=== PATIENT | male | born 1965 | race Caucasian/White ===

== ENCOUNTER 2017-09-05 12:44 | Inpatient (IN) | payer SELFPAY ==
[2017-09-05 13:44] LABS: #Eosinphils 0.2 thou/uL (0.0-0.7); #Lymphocytes 1.2 thou/uL (1.20-3.40); #Monocytes 0.3 thou/uL (0.11-0.59); #Neutrophils 5.7 thou/uL (1.40-6.50); %Basophils 0.4 % (0.0-1.0); %Eosinophils 2.9 % (0.0-10.0); %Lymphocytes 15.7 % (21.0-51.0); %Monocytes 4.4 % (0.0-10.0); %Neutrophils 76.7 % (42.0-75.0); Hemoglobin 11.9 g/dL (14.0-18.0); Mean Corpuscular HGB CONC 32.4 g/dL (32.0-36.0); Mean Corpuscular Hemoglobin 29.3 pg (27.0-31.0); Mean Corpuscular Volume 90.4 fl (80.0-94.0); Mean Platelet Volume 8.6 fL (7.4-10.4); Platelet Count 149 thou/uL (130-400); RBC Distribution Width 13.7 % (11.5-14.5); Red Blood Cell (RBC) Count 4.08 mill/uL (4.70-6.10); White Blood Cell (WBC) Count 7.4 thou/uL (4.8-10.8)
[2017-09-05 14:18] LABS: ALT (SGPT) 25 U/L (8-55); AST (SGOT) 22 U/L (5-34); Albumin 3.3 g/dL (3.5-5.0); Alkaline Phosphatase 87 U/L (40-150); Anion Gap 10 mmol/L (10-20); BUN (Urea Nitrogen) 21 mg/dL (8.4-25.7); Bilirubin, Total 0.6 mg/dL (0.2-1.2); Calc. Creatinine Clearance 0 mL/min (70-130); Carbon Dioxide 27 mmol/L (22-29); Chloride 106 mmol/L (98-107); Estimated GFR-MDRD 60; Globulin 2.5 g/dL (2.4-3.5); Glucose 172 mg/dL (70-105); Potassium 4.8 mmol/L (3.5-5.1); Protein, Total 5.8 g/dL (6.0-8.3); Sodium 138 mmol/L (136-145)
[2017-09-05 14:57] LABS: Acetaminophen Less than 6.0 mcg/mL (10.0-30.0); Alcohol Less than 10 mg/dL (Less than 10); Salicylate Less than 8.0 mg/dL (15.0-30.0)
[2017-09-05 17:00] LABS: INR-International Normal Ratio 1.2; PTT 29.4 SEC (22.9-36.1)
[2017-09-05] MEDS ORDERED: Ondansetron HCl/PF 4 MG/2 ML Vial ONE (17:57)
[2017-09-05] MEDS ORDERED: Pantoprazole 40 MG VIAL ONE (17:57)
[2017-09-05] MEDS ORDERED: Ondansetron HCl/PF 4 MG/2 ML Vial IVP PRN (20:32)
[2017-09-05] MEDS ORDERED: Acetaminophen 325 MG TAB PO PRN (20:32)
[2017-09-05 21:07] LABS: CKMB 1.7 ng/mL (0-6.6)
[2017-09-05 21:09] LABS: Hemoglobin 11.1 g/dL (14.0-18.0); Platelet Count 133 thou/uL (130-400)
[2017-09-05 21:31] LABS: Cardiac Risk 3.8 (Less than 4.5)
[2017-09-05 22:46] VITALS: BMI 39.9
[2017-09-05] MEDS: Sodium Chloride 0.9% 1,000 ML IV SCH (23:02)
[2017-09-05 23:24] LABS: HIV (1/2) Antibody/Antigen Non-Reactive (NonReactive); HIV 1/2 INDEX 0.14 S/CO (<1.00); Hep B Surf AB Non-Reactive (NonReactive); Hep C IgG Ab Non-Reactive (NonReactive); Hep C Index 0.31 S/CO (0-0.79)
[2017-09-05 23:51] LABS: CKMB 1.7 ng/mL (0-6.6); Troponin I 0.026 ng/mL (< 0.028)
[2017-09-06 02:33] LABS: #Eosinphils 0.1 thou/uL (0.0-0.7); #Lymphocytes 1.8 thou/uL (1.20-3.40); #Monocytes 0.5 thou/uL (0.11-0.59); #Neutrophils 4.5 thou/uL (1.40-6.50); %Basophils 0.7 % (0.0-1.0); %Eosinophils 1.9 % (0.0-10.0); %Lymphocytes 25.6 % (21.0-51.0); %Monocytes 6.5 % (0.0-10.0); %Neutrophils 65.2 % (42.0-75.0); Hemoglobin 10.1 g/dL (14.0-18.0); Mean Corpuscular HGB CONC 33.2 g/dL (32.0-36.0); Mean Corpuscular Hemoglobin 30.1 pg (27.0-31.0); Mean Corpuscular Volume 90.7 fl (80.0-94.0); Platelet Count 123 thou/uL (130-400); RBC Distribution Width 13.9 % (11.5-14.5); Red Blood Cell (RBC) Count 3.35 mill/uL (4.70-6.10); White Blood Cell (WBC) Count 6.9 thou/uL (4.8-10.8)
--- NOTE | 2017-09-06 02:40 | HP-2 ---
CODE STATUS: FULL. PRIMARY CARE PHYSICIAN: City call. ATTENDING PHYSICIAN: Vamshi Anaya MD RESIDENT: Omari Rose MD HISTORIAN: Patient and family DATE AND TIME OF SERVICE: 1930 hours on 09/05/2017. CHIEF COMPLAINT: Vomiting blood. HISTORY OF PRESENT ILLNESS: Handy Meredith is a 52-year-old male with past medical history of hype rtension, who presents with a 1-day history of hematemesis, started vomiting bright red blood today. First, he threw up clots and then he had several episodes of bright red bloody vomit. The patient h as also had melanotic stools associated with his vomiting. He denies any abdominal pain, chest pain, nausea, vomiting, diarrhea, fever. He has had some dizziness over the last few hours. The patient is from [place] and has been visiting family. He only takes 2 medications, Losartan and amlodipine, b ut has not taken them since traveling to the , as he forgot his medications at home in [place]. The patient has no history of vomiting blood and his symptoms improved after receiving Zofran in the ER. He also received Protonix in the ER. PAST MEDICAL HISTORY: Hypertension. PAST SURGICAL HISTORY: None. ALLERGIES: No known drug allergies. MEDICATIONS: 1. Losartan 50 mg p.o. daily. 2. Amlodipine 5 mg p.o. daily. FAMILY HISTORY: Unremarkable. SOCIAL HISTORY: The patient states that he smokes 2 cigarettes per day and that he will drink 6 beer s about every 2 weeks. Denies any drug use. He is and lives with his spouse. REVIEW OF SYSTEMS: Twelve-point review of systems including general, eyes, ENT, respiratory, CV, GI, , skin, musculoskeletal, neuro, and psych were reviewed and were unremarkable unless otherwise sta oscar in the HPI. PHYSICAL EXAMINATION: VITAL SIGNS: Blood pressure 122/72, pulse 62, respiratory rate 17, temperature 98.2, pulse ox 96% on room air, current weight is 90.72 kg. GENERAL: Alert and oriented x3, in no acute distress. Well developed, well nourished, and appropria tely interactive. EYES: Pupils equal, round, and reactive to light and accommodation. Extraocular muscles intact. Co njunctivae within normal limits. ENT: Tympanic membranes pearly hodges without erythema or bulging. Nasal mucosa and oropharynx within normal limits. NECK: Supple without lymphadenopathy or thyromegaly. CARDIOVASCULAR: Regular rate and rhythm. No murmurs or gallops. RESPIRATORY: Normal effort. No retractions. LUNGS: Clear to auscultation bilaterally. SKIN: Warm and dry without cyanosis or lesions. ABDOMEN: Soft and nontender. Bowel sounds x4. No masses or distention. There is a small ventral h ernia present on abdomen. EXTREMITIES: No clubbing, cyanosis, or edema. MUSCULOSKELETAL: Structure and tone within normal limits. Full range of motion. NEUROLOGIC: No focal deficits. Sensation within normal limits. PSYCHIATRIC: Appropriate. LABORATORY DATA: White blood cell count 7.4, hemoglobin 11.9, hematocrit 36.9, MCV 98.4, platelets 1 49. Sodium 138, potassium 4.8, chloride 106, bicarbonate 27, BUN 21, creatinine 1.27, glucose 172, c alcium 9, total protein 5.8, albumin 3.3, AST 22, ALT 25, alkaline phosphatase 87, total bilirubin 0. 6. Fecal occult positive. Blood type O positive. Ammonia 62. PT 15, PTT 29.4, INR 1.2. UDS, less than 6 ammonia, less than 10 alcohol, negative for aspirin. ASSESSMENT AND PLAN: Handy Meredith is a 52-year-old man with past medical history of hypertension . He presents with 1-day history of bright red bloody vomiting. 1. Acute upper gastrointestinal bleed. Admit to tele. Continue b.i.d. IV Protonix, every 4 hour H&H , maintenance fluids at 130 mL an hour. GI was consulted in the ER, saw the patient, and scheduled s cope tomorrow (Dr. Mckeon). Transfuse packed red blood cells p.r.n. Clear liquid diet at this time. N.p.o. at midnight. We will check right upper quadrant ultrasound, HIV, fasting lipid panel, and he patitis panel. 2. Hypertension. Hold home meds at this time as the patient was hypotensive in the ER, p.r.n. IV la betalol for blood pressures greater than 180 systolic. Consider restarting home medications after pr ocedure tomorrow. 3. Frequent premature ventricular contractions. Trend cardiac enzymes. Likely secondary to acute u pper gastrointestinal bleed. 4. Hyperglycemia. Check hemoglobin A1c. 5. Deep venous thrombosis prophylaxis, sequential compression devices. 6. Acute kidney injury versus chronic kidney disease. Check urine sodium and urine creatinine. 7. Code status: FULL CODE. 8. Diet: Clear liquid, then n.p.o tonight. DISPOSITION: Length of hospital stay, 2 days. Symptomatic medications will be provided. History and physical exam as well as management were discussed with Dr. Anaya.
[2017-09-06 03:01] LABS: CKMB 1.6 ng/mL (0-6.6); Troponin I 0.023 ng/mL (< 0.028)
--- NOTE | 2017-09-06 03:20 | CON ---
DATE OF CONSULTATION: 09/05/2017 REASON FOR CONSULTATION: Hematemesis. CONSULTING PHYSICIAN: Jossie Moffett PA-C HISTORY OF PRESENT ILLNESS: The patient is a 52-year-old gentleman with past medical history of hypertension, presenting with complaints of hematemesis and melena. He states that he was in his usual state of health until approximately 24 hours ago when he has three discrete episodes of vomiting, gross blood. Initially manifested as "vomiting clots" per patient and patient's , it was closely followed by vomiting of jason blood. Associated symptoms included increased headache only. He denies any fever, chills, abdominal pain, odynophagia, dysphagia, constipation, or diarrhea. Of note, he had been taking aspirin daily (unknown amount) along with p.r.n. use of ibuprofen for pain with increased dose within the last few weeks. OUTPATIENT MEDICATIONS: Amlodipine, losartan. INPATIENT MEDICATIONS: Reviewed. PAST MEDICAL HISTORY: As above. PAST SURGICAL HISTORY: Denies. FAMILY HISTORY: Hypertension, coronary artery disease, no GI malignancies. SOCIAL HISTORY: Smokes 3-4 cigarettes daily. He also claims to drink 6-7 beers every 2 weeks. Denies any illicit drug use. ALLERGIES: Denies. REVIEW OF SYSTEMS: A 12-category review of systems was obtained with all responses negative except for the pertinent positives as listed in the HPI. PHYSICAL EXAMINATION: VITAL SIGNS: Temperature 98.1, pulse 75, blood pressure 118/78, respiratory rate 18, satting 99% on room air. GENERAL: Patient in no acute distress, alert and oriented x4, Mauritian speaking only. HEENT: Pupils are equal, round, and reactive to light. Extraocular movements are intact. NECK: Supple, with no discernible JVD. CARDIOVASCULAR: Regular rate and rhythm with no discernible murmurs, gallops, or rubs. RESPIRATORY: Clear to auscultation bilaterally with no discernible wheezes or rales. ABDOMEN: Normoactive bowel sounds, soft, nontender, nondistended. No hepatosplenomegaly noted. EXTREMITIES: No cyanosis, clubbing, or edema. SKIN: No jaundice, caput medusae, or spider angiomata seen. LABORATORY DATA: CBC with white blood cell count of 7.4, hemoglobin 11.1, hematocrit 33.8, platelets 133. Chemistry with a sodium of 138, potassium 4.8, chloride 106, carbon dioxide 27, BUN 21, creatinine 1.27, glucose 172, AST 22, ALT 25, alkaline phosphatase 87, total bilirubin 0.6. FIB-4 score 1.72, APRI score 0.4. IMAGING STUDIES: No imaging studies available for review. ASSESSMENT AND PLAN: The patient is a 52-year-old male with a past medical history of hypertension, presenting with hematemesis and melena, concerning for upper gastrointestinal bleed. Upper gastrointestinal bleed The patient is presenting with acute onset of gross blood hematemesis that have occurred within the last 24 hours. He does have a history of significant nonsteroidal anti-inflammatory drug use, which could potentially contribute to the current clinical situation, but given his alcohol history, he is at risk for portal hypertension and variceal formation (albeit unlikely) with a current FIB-4 score of 1.72 (indeterminate) and APRI score of 0.4(indeterminate) showing possible fibrosis (primarily due to his low platelet count). Otherwise , does not exhibit any evidence of alcoholic hepatitis or physical stigmata of cirrhosis at this time. At this time, differential is broad and could include esophagitis, gastritis, varices (less likely), arteriovenous malformation/ Dieulafoy lesion, peptic ulcer disease, and/or possible malignancy (much less likely). RECOMMENDATIONS: 1. We would continue to trend H and H and transfuse as necessary to maintain an H and H of /. 2. We would continue patient on either PPI drip or pantoprazole 40 mg b.i.d. 3. We would make patient n.p.o. at midnight for endoscopic evaluation on 2016 (EGD). 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 MTDD
[2017-09-06] MEDS: Sodium Chloride 0.9% 1,000 ML IV SCH ×2 (06:15→12:25)
[2017-09-06 06:38] LABS: Creatinine, Urine 77.74 mg/dL (63-166)
--- NOTE | 2017-09-06 06:43 | HP ---
DATE OF ADMISSION: 09/05/2017 CHIEF COMPLAINT: Vomiting. HISTORY OF PRESENT ILLNESS: This is a 52-year-old male with past history of hypertension who present s with multiple episodes of bloody vomitus this morning. He also has been having some dark stools to day as well. In the ED, he was noted to be borderline hypertensive responded well to fluids and subs equently GI was consulted and they recommended endoscopy in the morning and we were consulted for adm ission. Currently, has no complaints. Denies fatigue, chest pain, shortness of breath, nausea, vomi ting, diarrhea, constipation, abdominal pain, chest pain, shortness of breath, fever, chills, and all other systems are reviewed and otherwise negative. PAST MEDICAL HISTORY: Significant for hypertension. MEDICATIONS: Losartan and hydrochlorothiazide. PAST SURGICAL HISTORY: Noncontributory. FAMILY HISTORY: Positive for hypertension and coronary artery disease. SOCIAL HISTORY: He smokes approximately 3-4 cigarettes a day. He drinks alcohol about a 6-pack ever y 2 weeks. Denies drug use. ALLERGIES: No known drug allergies. PHYSICAL EXAMINATION: VITAL SIGNS: Reviewed and currently stable. GENERAL: No acute distress, resting comfortably, talking with family. HEENT: Eyes: Without icterus or injection. Pupils are equal, round, reactive to light. Pinna norm al. Nares patent. Moist mucous membranes with no vomitus or posterior pharyngeal erythema. CARDIOVASCULAR: Regular rate and rhythm without murmur, gallops, or rubs. LUNGS: Clear to auscultation bilaterally without wheezes, rales, or rhonchi. GASTROINTESTINAL: Bowel sounds positive. Obese, nontender to palpation. No palpable organomegaly. GENITOURINARY: Deferred. MUSCULOSKELETAL: Without obvious deformity contracture. No effusion. Muscles nontender to palpatio n. SKIN: Without stigmata of liver disease at this point. Nails normal. Warm and dry without rash. NEUROLOGIC: Cranial nerves II-XII intact and symmetric. Motor 5/5 in upper and lower extremities. Sensation intact to light touch in the upper and lower extremities. PSYCHIATRIC: Alert and oriented x3. Normal mood and affect for current medical condition. LABORATORY DATA: Include hemoglobin of 11.9 with normal MCV, no leukocytosis. Platelets are 149. C oags, only abnormal is PT which is 15.0, INR is normal at 1.2. Chemistry include elevated glucose, b ut otherwise creatinine is 1.27, BUN is 21 with estimated GFR of 60. Salicylates, acetaminophen, and plasma alcohol are negative. There is no imaging. Stool occult blood is negative. Blood bank is O positive without antibodies. ASSESSMENT AND PLAN: A 52-year-old male with: 1. Likely upper gastrointestinal bleed. GI has been consulted. We will perform endoscopy tomorrow. They recommended b.i.d. IV PPI. We will go ahead and proceed with pantoprazole for that. They do not want octreotide, so we will hold off to make sure he has good IV access for maintenance fluids. We will trend hemoglobin q.4 hours every night and transfuse p.r.n. 2. Anemia, see above. We will hold off on iron studies. 3. Nausea and vomiting, Zofran p.r.n. if necessary. 4. Morbid obesity. Counseled diet and exercise. 5. Tobacco abuse. We will recommend tobacco cessation. 6. Alcohol use. Unsure if he has alcohol use disorder or any medical complications from this. In l ight of recent hematemesis, we will proceed with a hep panel as well as an A1c and a right upper quad rant ultrasound to evaluate his liver. 7. Deep venous thrombosis prophylaxis with sequential compression device. 8. Gastrointestinal prophylaxis as above.
[2017-09-06 07:16] LABS: Hemoglobin 10.2 g/dL (14.0-18.0); Platelet Count 132 thou/uL (130-400)
[2017-09-06] MEDS: Pantoprazole 40 MG VIAL IVP SCH ×2 (08:28→21:01)
--- NOTE | 2017-09-06 08:54 | ULT ---
GALLBLADDER ULTRASOUND: HISTORY: GI bleed. FINDINGS: The liver demonstrates increased echogenicity, consistent with fatty infiltration. No focal mass or intrahepatic ductal dilatation is seen. No shadowing gallstones are seen. There is thickening of th e wall of the gallbladder with pericholecystic fluid. The common duct measures 4 mm in diameter. Th e tail of the pancreas is obscured by bowel gas. The remainder of the pancreas and the right kidney are unremarkable. There is a small amount of free fluid adjacent to the liver. IMPRESSION: 1. Fatty liver. 2. Thickened gallbladder wall with pericholecystic fluid. If there is high clinical suspicion for an acute cholecystitis, further evaluation with HIDA scan shaina uld be performed. POS: YOSHI
--- NOTE | 2017-09-06 09:06 | PDOC.FM ---
- Subjective Subjective: Pt seen at bedside in NAD. Family at bedside. TIFFANIE overnight but pt does endorse melenotic BMs. Pt denies CP, SOB, abd pain, or any further episodes of vomiting. Pt NPO ahead of EGD. - Objective MAR Reviewed: Yes Vital Signs & Weight: Vital Signs (12 hours) Temp Pulse Resp BP BP Pulse Ox 09/06/17 08:00 97.8 F 64 14 118/68 99 09/06/17 04:23 75 20 131/72 09/06/17 04:00 97.8 F 72 16 114/71 114/71 97 09/06/17 00:00 98.7 F 76 23 H 119/73 97 09/05/17 23:02 20 Weight Weight 102.33 kg I&O: 09/05/17 09/06/17 09/07/17 06:59 06:59 06:59 Intake Total 1551 Output Total 200 Balance 1351 Result Diagrams: 09/06/17 06:51 09/05/17 13:36 <Macario Gross - Last Filed: 09/06/17 09:05> - Objective Vital Signs & Weight: Vital Signs (12 hours) Temp Pulse Resp BP BP Pulse Ox 09/06/17 08:00 97.8 F 64 14 118/68 99 09/06/17 04:23 75 20 131/72 09/06/17 04:00 97.8 F 72 16 114/71 114/71 97 09/06/17 00:00 98.7 F 76 23 H 119/73 97 09/05/17 23:02 20 Weight Weight 102.33 kg I&O: 09/05/17 09/06/17 09/07/17 06:59 06:59 06:59 Intake Total 1551 Output Total 200 Balance 1351 Result Diagrams: 09/06/17 06:51 09/05/17 13:36 <Kayden Rascon - Last Filed: 09/06/17 11:44> Phys Exam - Physical Examination Constitutional: NAD HEENT: PERRLA, sclera anicteric Respiratory: no wheezing, clear to auscultation bilateral Cardiovascular: RRR, no significant murmur Gastrointestinal: soft, non-tender, positive bowel sounds Musculoskeletal: no edema, pulses present Neurological: moves all 4 limbs Psychiatric: normal affect, A&O x 3 Skin: cap refill <2 seconds <Macario Gross - Last Filed: 09/06/17 09:05> Dx/Plan (1) Hematemesis Code(s): K92.0 - HEMATEMESIS Status: Acute QualifierTitle: Nausea presence: with nausea Qualified Code(s): K92.0 - Hematemesis Plan: -pt presented with 1 day history of hematemesis endorsing vomiting blood clots -pt found to have symptomatic anemia with c/o dizziness and hgb 11 on admission -FOBT+ -pt notes he has been taking ASA daily, unknown dose along with PRN ibuprofen use -GI consulted from ED, recs greatly appreciated -EtOH history slightly inconsistent but pt notes 6 beers every 2 weeks -upper GI bleed likely 2/2 to NSAID use -RUQ US shows fatty liver. no evidence of cirrhosis. -plan per GI for EGD this AM (2) Fatty liver Code(s): K76.0 - FATTY (CHANGE OF) LIVER, NOT ELSEWHERE CLASSIFIED Status: Acute Plan: -RUQ US shows fatty liver -agency legal counsel EtOH cessation (3) Essential hypertension Code(s): I10 - ESSENTIAL (PRIMARY) HYPERTENSION Status: Acute Plan: -pt on home amlodipine and losartan -held as pt is NPO with BP well controlled -continue to monitor (4) Hyperglycemia Code(s): R73.9 - HYPERGLYCEMIA, UNSPECIFIED Status: Acute Plan: -hyperglycemia on admission with glucose 172 -A1c of 6.0 -pt likely has glucose intolerance, agency legal counsel dietary and lifestyle changes -after EGD, will start pt on metformin <Macario Gross - Last Filed: 09/06/17 09:05> Attending Addendum - Attending Addendum I personally evaluated the patient and discussed the management with Dr. [] I agree with the History, Examination, Assessment and Plan documented above with any addition or exceptions noted below. <Kayden Rascon - Last Filed: 09/06/17 11:44>
[2017-09-06] MEDS ORDERED: Lidocaine 1% PF 5 ML VIAL ONE (13:31)
[2017-09-06] MEDS ORDERED: PROPOFOL 200 MG/20 ML VIAL ONE (13:31)
[2017-09-06] MEDS ORDERED: Ondansetron HCl/PF 4 MG/2 ML Vial IVP PRN (14:35)
[2017-09-06] MEDS ORDERED: Meperidine HCl/PF 25 MG/ML VIAL SLOW IVP PRN (14:35)
[2017-09-06] MEDS ORDERED: HYDROmorphone 2 MG/ML VIAL SLOW IVP PRN (14:35)
[2017-09-06] MEDS ORDERED: Promethazine HCl 25 MG/ML VIAL SLOW IVP PRN (14:35)
[2017-09-06] MEDS ORDERED: Morphine Sulfate 2 MG/ML SYRINGE SLOW IVP PRN (14:35)
[2017-09-06] MEDS ORDERED: Octreotide Acetate 50 MCG/ML AMP SLOW IVP SCH (15:15)
[2017-09-06] MEDS: Octreotide Acetate 1,250 MCG in Sodium Chloride 0.9% 250 ML 250 ML IVPB SCH (15:53)
[2017-09-06] MEDS: Dextrose 5 % And 0.9 % NaCl 1,000 ML IV SCH (16:01)
--- NOTE | 2017-09-06 22:57 | OP ---
DATE OF PROCEDURE: 09/06/2017 PROCEDURES: EGD with banding of varices x7. PREPROCEDURE DIAGNOSIS: Upper gastrointestinal hemorrhage. POSTPROCEDURE DIAGNOSES: 1. Mild atrophic gastropathy with no active bleeding. 2. No gastric varices. 3. Normal duodenum third portion. 4. 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 This is likely the source of bleeding; however, in light of the red . RECOMMENDATIONS: 1. IV octreotide drip. 2. Protonix IV q.12 hours. 3. The patient should have repeat banding in 3 weeks. 4. Alcohol cessation. 5. Cirrhosis workup. ANESTHESIA: TIVA. PROCEDURE IN DETAIL: After the patient was informed of the risks, benefits, possible complications o f endoscopy including perforation, reactions to medication and aspiration, informed consent was obtai zackary. The patient was brought to endoscopy suite where he was sedated in gradual fashion. Once he wa s comfortable, a bite block was placed in incisural orifice. The endoscope was advanced through the esophagus, stomach and second and third portion of duodenum. The esophagus was notable for 3 columns of grade 4 varices with red ar signs. There was no clot or active bleeding seen. The endoscope w as advanced into the stomach carefully, the stomach was normal on retroflexed views. There is some a trophic gastritis of the body of the stomach. There was no evidence of gastric varices. There is no . The pylorus was normal. Duodenum was normal to the third portion. The scope was then remov ed. The 7 band ligator kit was fixed to the endoscope was reintroduced the esophagus carefully down the distal esophagus where 7 bands were applied in the varices between 40 and 35 cm with good ablatio n of varices.
[2017-09-07] MEDS: Dextrose 5 % And 0.9 % NaCl 1,000 ML IV SCH ×2 (04:21→15:47)
[2017-09-07 05:15] LABS: #Eosinphils 0.2 thou/uL (0.0-0.7); #Monocytes 0.3 thou/uL (0.11-0.59); %Basophils 0.5 % (0.0-1.0); %Eosinophils 3.8 % (0.0-10.0); %Lymphocytes 22.2 % (21.0-51.0); %Monocytes 7.3 % (0.0-10.0); %Neutrophils 66.1 % (42.0-75.0); Mean Corpuscular HGB CONC 32.5 g/dL (32.0-36.0); Mean Corpuscular Hemoglobin 29.8 pg (27.0-31.0); Mean Corpuscular Volume 91.7 fl (80.0-94.0); Mean Platelet Volume 8.3 fL (7.4-10.4); Platelet Count 124 thou/uL (130-400); Red Blood Cell (RBC) Count 3.37 mill/uL (4.70-6.10); White Blood Cell (WBC) Count 4.5 thou/uL (4.8-10.8)
[2017-09-07 05:52] LABS: ALT (SGPT) 47 U/L (8-55); AST (SGOT) 40 U/L (5-34); Albumin 3.4 g/dL (3.5-5.0); Alkaline Phosphatase 60 U/L (40-150); Anion Gap 10 mmol/L (10-20); BUN (Urea Nitrogen) 25 mg/dL (8.4-25.7); Bilirubin, Total 0.8 mg/dL (0.2-1.2); Calc. Creatinine Clearance 97 mL/min (70-130); Calcium 9.2 mg/dL (7.8-10.44); Carbon Dioxide 27 mmol/L (22-29); Chloride 108 mmol/L (98-107); Estimated GFR-MDRD 59; Globulin 2.6 g/dL (2.4-3.5); Glucose 152 mg/dL (70-105); Phosphorus 3.8 mg/dL (2.3-4.7); Sodium 141 mmol/L (136-145)
[2017-09-07] MEDS: Octreotide Acetate 1,250 MCG in Sodium Chloride 0.9% 250 ML 250 ML IVPB SCH (08:31)
[2017-09-07] MEDS: Pantoprazole 40 MG VIAL IVP SCH ×2 (08:31→21:14)
[2017-09-07] MEDS: Amlodipine 5 MG TAB PO SCH (09:18)
--- NOTE | 2017-09-07 09:23 | PDOC.FM ---
- Subjective Subjective: Pt seen at bedside in NAD with family at bedside. TIFFANIE overnight. Pt still endorses melena but denies OSBORNE, CP, SOB, NVD, or abd pain. Pt tolerating diet. - Objective MAR Reviewed: Yes Vital Signs & Weight: Vital Signs (12 hours) Temp Pulse Resp BP BP Pulse Ox 09/07/17 09:18 68 126/70 09/07/17 07:25 96.4 F L 68 18 126/70 97 09/07/17 04:18 135/82 09/07/17 04:00 97.6 F 65 15 135/82 100 Weight Weight 101.559 kg I&O: 09/06/17 09/07/17 09/08/17 06:59 06:59 06:59 Intake Total 1551 1572 Output Total 200 2600 Balance 1351 -1028 Result Diagrams: 09/07/17 04:32 09/07/17 04:32 <Macario Gross - Last Filed: 09/07/17 10:37> - Objective Vital Signs & Weight: Vital Signs (12 hours) Temp Pulse Resp BP BP Pulse Ox 09/07/17 11:38 98.8 F 64 20 139/79 96 09/07/17 11:22 96 09/07/17 09:18 68 126/70 09/07/17 08:00 126/70 09/07/17 07:25 96.4 F L 68 18 126/70 97 09/07/17 04:18 135/82 09/07/17 04:00 97.6 F 65 15 135/82 100 Weight Weight 101.559 kg I&O: 09/06/17 09/07/17 09/08/17 06:59 06:59 06:59 Intake Total 1551 1572 Output Total 200 2600 Balance 1351 -1028 Result Diagrams: 09/07/17 04:32 09/07/17 04:32 <Kayden Rascon - Last Filed: 09/07/17 15:12> Phys Exam - Physical Examination Constitutional: NAD HEENT: sclera anicteric Respiratory: no wheezing, no rales, clear to auscultation bilateral Cardiovascular: RRR, no significant murmur Gastrointestinal: soft, non-tender, positive bowel sounds Musculoskeletal: pulses present Neurological: moves all 4 limbs Psychiatric: normal affect, A&O x 3 Skin: cap refill <2 seconds <Macario Gross - Last Filed: 09/07/17 10:37> Dx/Plan (1) Hematemesis Code(s): K92.0 - HEMATEMESIS Status: Acute QualifierTitle: Nausea presence: with nausea Qualified Code(s): K92.0 - Hematemesis Plan: -pt presented with 1 day history of hematemesis endorsing vomiting blood clots -pt found to have symptomatic anemia with c/o dizziness and hgb 11 on admission -FOBT+ -pt notes he has been taking ASA daily, unknown dose along with PRN ibuprofen use -GI consulted from ED, recs greatly appreciated -EtOH history slightly inconsistent but pt notes 6 beers every 2 weeks -RUQ US shows fatty liver. no evidence of cirrhosis. -pt had EGD on 09/06 which showed 7 lower esophageal varices that were banded -will add CMV onto hepatitis panel and consider liver biopsy in outpatient setting -pt placed on octreotide gtt (2) Fatty liver Code(s): K76.0 - FATTY (CHANGE OF) LIVER, NOT ELSEWHERE CLASSIFIED Status: Acute Plan: -RUQ US shows fatty liver -debt counselor EtOH cessation -initial hepatitis panel negative. will add CMV. -consider outpatient biopsy (3) Essential hypertension Code(s): I10 - ESSENTIAL (PRIMARY) HYPERTENSION Status: Acute Plan: -pt on home amlodipine and losartan -amlodipine restarted -continue to monitor (4) Hyperglycemia Code(s): R73.9 - HYPERGLYCEMIA, UNSPECIFIED Status: Acute Plan: -hyperglycemia on admission with glucose 172 -A1c of 6.0 -pt likely has glucose intolerance, debt counselor dietary and lifestyle changes -will start pt on metformin - Plan Plan: dispo: Pt stable and doing well. Tolerated EGD and banding yesterday. GI recommendations greatly appreciated. Continue octreotide and protonix. Will continue to monitor. <Macario Gross - Last Filed: 09/07/17 10:37> Attending Addendum - Attending Addendum I personally evaluated the patient and discussed the management with Dr. Gross. I agree with the History, Examination, Assessment and Plan documented above with any addition or exceptions noted below. W/O c/o's except expected melena. Vitals stable. On octreotide drip. Discussed results with pt. and family and stressed complete ETOH abstinence from now on and need for f/u as OP to monitor progression and continue investigation as to cause if not determined fully while here. Pt. 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 <Kayden Rascon - Last Filed: 09/07/17 15:12>
--- NOTE | 2017-09-07 16:13 | PRG ---
DATE OF SERVICE: 09/07/2017 SUBJECTIVE: The patient is doing well overnight with no further episodes of hematemesis or melena. Currently, he denies any nausea, vomiting, fever, chills , shortness of breath, abdominal pain, hematemesis, melena, hematochezia, dysphagia or odynophagia. INPATIENT MEDICATIONS: Reviewed. PHYSICAL EXAMINATION: VITAL SIGNS: Temperature 98.8, pulse 64, blood pressure 139/79, respiratory rate 20, and satting 96% on room air. GENERAL: No acute distress. Alert and oriented x4, Liberian speaking only. CARDIOVASCULAR: Regular rate and rhythm with no discernible murmurs, gallops or rubs. RESPIRATORY: Clear to auscultation bilaterally with no wheezes or rales. ABDOMEN: Normoactive bowel sounds, soft, nontender, nondistended. EXTREMITIES: No cyanosis, clubbing or edema. LABORATORY DATA: CBC with white blood cell count of 4.5, hemoglobin 10, hematocrit 30.9, and platelets 124. Sodium 141, potassium 4.0, chloride 108, carbon dioxide 27, BUN 25, creatinine 1.28, glucose 152, AST 40, ALT 47, alkaline phosphatase 60, total bilirubin 0.8. IMAGING STUDIES: EGD performed on 09/06/2017 showing 3 columns of grade 4 varices in the distal esophagus with red ar sign indicative of recent bleeding. He underwent band ligation x7. There was no evidence of gastric varices on examination. Mild atrophic gastropathy was also noted within the body and antrum of the stomach. ASSESSMENT: Patient is a 52-year-old male with past medical history of hypertension presenting with hematemesis and melena, likely due to esophageal varix bleed. Variceal bleeding The patient presented with acute onset of gross blood hematemesis that occurred for approximately 25 hours prior to admission. This has never happened to him before and had been taking NSAIDs and increased alcohol abuse prior to admission , which could have potentially contributed to his current clinical status. Subsequently, he underwent EGD on 09/06/2017 with finding of large varices in the distal esophagus indicative of portal hypertension. Recent right upper quadrant ultrasound showed only hepatic steatosis with no nodular morphology consistent with cirrhosis. At this time, with the presence of esophageal varices, it is indicative of portal hypertension with the most likely reason being chronic alcohol abuse and resultant cirrhosis. Currently with decompensated disease with a MELD score of 11. The patient will need further workup of other underlying liver disease as a cause of his probable cirrhosis prior to discharge. He will also need close followup as an outpatient for further evaluation and maintenance of chronic liver disease. RECOMMENDATIONS: 1. Would proceed with full liver workup to include serologies of THOMAS, AMA, ASMA , LKM, ceruloplasmin, alpha 1 antitrypsin, iron profile with ferritin, and immunoglobulins looking for other underlying liver disorder. 2. We will need to repeat EGD in 3-4 weeks for reevaluation of esophageal varices and possible repeat band ligation. 3. Patient will need follow up in the GI clinic within 2 weeks of discharge for further maintenance of chronic liver disease. 4. Would obtain daily INR and perform neuro checks for possible encephalopathy and worsening liver disease. 5. Would continue octreotide infusion for 72 hours from initial administration. MTDD
[2017-09-07] MEDS: Losartan 25 MG TAB PO SCH (21:14)
[2017-09-08] MEDS: Octreotide Acetate 1,250 MCG in Sodium Chloride 0.9% 250 ML 250 ML IVPB SCH (02:56)
[2017-09-08] MEDS: Dextrose 5 % And 0.9 % NaCl 1,000 ML IV SCH ×2 (03:20→18:10)
[2017-09-08 05:28] LABS: INR-International Normal Ratio 1.2; Prothrombin Time 15.5 SEC (12.0-14.7)
[2017-09-08 05:34] LABS: Hemoglobin 9.8 g/dL (14.0-18.0); Platelet Count 118 thou/uL (130-400)
--- NOTE | 2017-09-08 07:23 | PDOC.FM ---
- Subjective Subjective: Pt seen at bedside in NAD. TIFFANIE overnight. Pt still endorses melena but denies OSBORNE , CP, SOB, NVD, or abd pain. Pt tolerating diet. - Objective MAR Reviewed: Yes Vital Signs & Weight: Vital Signs (12 hours) Temp Pulse Resp BP BP BP Pulse Ox 09/08/17 03:15 98.0 F 57 L 14 113/66 113/66 98 09/08/17 00:25 98.3 F 68 18 115/69 115/69 98 09/07/17 20:00 157/84 H 09/07/17 19:30 99.2 F 65 18 157/84 H 96 Weight Weight 101.559 kg I&O: 09/07/17 09/08/17 09/09/17 06:59 06:59 06:59 Intake Total 1572 2668 Output Total 2600 700 Balance -1028 1967 Result Diagrams: 09/08/17 04:37 09/07/17 04:32 <Macario Gross - Last Filed: 09/08/17 07:54> - Objective Vital Signs & Weight: Vital Signs (12 hours) Temp Pulse Resp BP BP BP Pulse Ox 09/08/17 11:00 97.3 F L 60 20 124/74 97 09/08/17 08:25 67 127/79 09/08/17 08:20 97.9 F 16 96 09/08/17 08:07 97.9 F 67 16 09/08/17 03:15 98.0 F 57 L 14 113/66 113/66 98 Weight Weight 101.559 kg I&O: 09/07/17 09/08/17 09/09/17 06:59 06:59 06:59 Intake Total 1572 2668 330 Output Total 2600 700 Balance -1028 1967 330 Result Diagrams: 09/08/17 04:37 09/07/17 04:32 <Romeo Trammell - Last Filed: 09/08/17 15:09> Phys Exam - Physical Examination Constitutional: NAD HEENT: sclera anicteric Respiratory: no wheezing, no rales, clear to auscultation bilateral Cardiovascular: RRR, no significant murmur Gastrointestinal: soft, non-tender, positive bowel sounds Musculoskeletal: pulses present Neurological: moves all 4 limbs Psychiatric: normal affect, A&O x 3 Skin: cap refill <2 seconds <Macario Gross - Last Filed: 09/08/17 07:54> Dx/Plan (1) Hematemesis Code(s): K92.0 - HEMATEMESIS Status: Acute QualifierTitle: Nausea presence: with nausea Qualified Code(s): K92.0 - Hematemesis Plan: -pt presented with 1 day history of hematemesis endorsing vomiting blood clots -pt found to have symptomatic anemia with c/o dizziness and hgb 11 on admission -FOBT+ -pt notes he has been taking ASA daily, unknown dose along with PRN ibuprofen use -GI consulted from ED, recs greatly appreciated -EtOH history slightly inconsistent but pt notes 6 beers every 2 weeks -RUQ US shows fatty liver. no evidence of cirrhosis. -pt had EGD on 09/06 which showed 7 lower esophageal varices that were banded -cirrhosis workup pending per GI -pt placed on octreotide gtt (2) Fatty liver Code(s): K76.0 - FATTY (CHANGE OF) LIVER, NOT ELSEWHERE CLASSIFIED Status: Acute Plan: -RUQ US shows fatty liver -certified addiction counselor EtOH cessation -cirrhosis workup pending per GI (3) Essential hypertension Code(s): I10 - ESSENTIAL (PRIMARY) HYPERTENSION Status: Acute Plan: -pt on home amlodipine and losartan -amlodipine restarted -continue to monitor (4) Hyperglycemia Code(s): R73.9 - HYPERGLYCEMIA, UNSPECIFIED Status: Acute Plan: -hyperglycemia on admission with glucose 172 -A1c of 6.0 -pt likely has glucose intolerance, certified addiction counselor dietary and lifestyle changes -will start pt on metformin - Plan Plan: dispo: Pt stable and doing well. Cirrhosis workup pending per GI, recs greatly appreciated. Continue to monitor. <Macario Gross - Last Filed: 09/08/17 07:54> Attending Addendum - Attending Addendum I personally evaluated the patient and discussed the management with Dr. Gross. I agree with the History, Examination, Assessment and Plan documented above with any addition or exceptions noted below. He feels ok. Cirrhosis workup pending. Hematemesis resolved. Esophageal varices post EGD banding of Varices x 7. Fatty liver. Glucose intolerance with HbA1c 6.0, HTN, obesity, chronic NSAID use. Await further recommendations per GI. In the mean time continue Protonix and Octreotide drip. MD Brunilda <Romeo Trammell - Last Filed: 09/08/17 15:09>
[2017-09-08] MEDS: metFORMIN 500 MG TAB PO SCH (08:25)
[2017-09-08] MEDS: Amlodipine 5 MG TAB PO SCH (08:25)
[2017-09-08] MEDS: Losartan 25 MG TAB PO SCH ×2 (08:28→21:13)
[2017-09-08] MEDS: Pantoprazole 40 MG VIAL IVP SCH ×2 (08:28→21:13)
[2017-09-08] MEDS ORDERED: Octreotide Acetate 1,250 MCG in Sodium Chloride 0.9% 250 ML 250 ML IVPB SCH (20:49)
--- NOTE | 2017-09-08 21:25 | PRG ---
DATE OF SERVICE: 09/08/2017 SUBJECTIVE: Mr. Meredith has had no overt bleeding today. He is tolerating clear liquid diet. He has no acute complaints. OBJECTIVE: VITAL SIGNS: Temperature 98.6, pulse 60, blood pressure 145/88. GENERAL: He is in no acute distress. He is awake and alert. LUNGS: Clear to auscultation bilaterally. HEART: Regular rate and rhythm. ABDOMEN: Soft, nontender, nondistended. Bowel sounds are present. EXTREMITIES: No lower extremity edema. LABORATORY DATA: Hemoglobin is 9.8. IMPRESSION: 1. Large esophageal varices status post multiple bands placement. 2. Alcoholic cirrhosis. RECOMMENDATIONS: 1. He should be able to wean the octreotide off tomorrow. I will cut this down to 25 mcg per hour f or the next 12 hours and then stop tomorrow. 2. Advance to soft diet tomorrow morning. 3. Alcohol cessation. 4. Await additional lab work and to evaluate for other causes of liver disease.
[2017-09-09] MEDS: Dextrose 5 % And 0.9 % NaCl 1,000 ML IV SCH (05:19)
--- NOTE | 2017-09-09 07:07 | PDOC.FM ---
- Subjective Subjective: Pt seen at bedside in NAD. TIFFANIE overnight. Pt still endorses melena but denies OSBORNE , CP, SOB, NVD, or abd pain. Pt tolerating diet. - Objective MAR Reviewed: Yes Vital Signs & Weight: Vital Signs (12 hours) Temp Pulse Resp BP BP Pulse Ox 09/09/17 04:00 98.4 F 56 L 20 134/71 134/71 96 09/08/17 20:00 145/88 H 09/08/17 19:15 98.6 F 60 18 145/88 H 98 Weight Weight 101.559 kg I&O: 09/08/17 09/09/17 09/10/17 06:59 06:59 06:59 Intake Total 2668 3464 Output Total 700 2130 Balance 19674 Result Diagrams: 09/08/17 04:37 09/07/17 04:32 <Macario Gross - Last Filed: 09/09/17 07:52> - Objective Vital Signs & Weight: Vital Signs (12 hours) Temp Pulse Resp BP BP BP Pulse Ox 09/09/17 15:17 99 F 58 L 18 133/78 98 09/09/17 11:55 98 F 59 L 20 139/78 98 09/09/17 08:59 57 L 09/09/17 07:55 125/73 09/09/17 07:53 97.3 F L 57 L 16 125/73 97 Weight Weight 101.559 kg I&O: 09/08/17 09/09/17 09/10/17 06:59 06:59 06:59 Intake Total 2668 3464 Output Total 700 2130 Balance 19674 Result Diagrams: 09/08/17 04:37 09/07/17 04:32 <Romeo Trammell - Last Filed: 09/09/17 16:02> Phys Exam - Physical Examination Constitutional: NAD HEENT: sclera anicteric Respiratory: no wheezing, clear to auscultation bilateral Cardiovascular: RRR, no significant murmur Gastrointestinal: soft, non-tender, positive bowel sounds Musculoskeletal: pulses present Neurological: moves all 4 limbs Psychiatric: normal affect, A&O x 3 Skin: cap refill <2 seconds <Macario Gross - Last Filed: 09/09/17 07:52> Dx/Plan (1) Hematemesis Code(s): K92.0 - HEMATEMESIS Status: Acute QualifierTitle: Nausea presence: with nausea Qualified Code(s): K92.0 - Hematemesis Plan: -pt presented with 1 day history of hematemesis endorsing vomiting blood clots -pt found to have symptomatic anemia with c/o dizziness and hgb 11 on admission -FOBT+ -pt notes he has been taking ASA daily, unknown dose along with PRN ibuprofen use -GI consulted from ED, recs greatly appreciated -EtOH history slightly inconsistent but pt notes 6 beers every 2 weeks -RUQ US shows fatty liver. no evidence of cirrhosis. -pt had EGD on 09/06 which showed 7 lower esophageal varices that were banded -cirrhosis workup pending per GI -pt placed on octreotide gtt, being weaned with plans to d/c today (2) Fatty liver Code(s): K76.0 - FATTY (CHANGE OF) LIVER, NOT ELSEWHERE CLASSIFIED Status: Acute Plan: -RUQ US shows fatty liver -senior genetic counselor EtOH cessation -cirrhosis workup pending per GI (3) Essential hypertension Code(s): I10 - ESSENTIAL (PRIMARY) HYPERTENSION Status: Acute Plan: -pt on home amlodipine and losartan -amlodipine restarted -continue to monitor (4) Hyperglycemia Code(s): R73.9 - HYPERGLYCEMIA, UNSPECIFIED Status: Acute Plan: -hyperglycemia on admission with glucose 172 -A1c of 6.0 -pt likely has glucose intolerance, senior genetic counselor dietary and lifestyle changes -metformin started - Plan Plan: dispo: Pt stable and doing well. Advance diet to soft per GI, recs greatly appreciated. Octreotide drip to be weaned and discontinued today. Cirrhosis workup pending, continue to monitor. <Macario Gross - Last Filed: 09/09/17 07:52> Attending Addendum - Attending Addendum I personally evaluated the patient and discussed the management with Dr. Gross. I agree with the History, Examination, Assessment and Plan documented above with any addition or exceptions noted below. Feels well. Advanced to [facility]. soft diet. Exam as above. Awaiting clearance from GI and results of cirrhosis workup for discharge. Octreotide drip discontinued. [facility] <Romeo Trammell - Last Filed: 09/09/17 16:02>
[2017-09-09] MEDS: Pantoprazole 40 MG VIAL IVP SCH (08:58)
[2017-09-09] MEDS: metFORMIN 500 MG TAB PO SCH (08:59)
[2017-09-09] MEDS: Losartan 25 MG TAB PO SCH ×2 (08:59→21:40)
[2017-09-09] MEDS: Amlodipine 5 MG TAB PO SCH (08:59)
--- NOTE | 2017-09-09 12:02 | PRG ---
DATE OF SERVICE: 09/09/2017 SUBJECTIVE: Mr. Meredith has no complaints, no abdominal pain. No further overt bleeding. OBJECTIVE: VITAL SIGNS: Temperature 97.3, pulse 57, blood pressure 125/73. GENERAL: He is in no acute distress, awake and alert. LUNGS: Clear to auscultation bilaterally. HEART: Regular rate and rhythm. ABDOMEN: Soft, nontender, nondistended. Bowel sounds are present. EXTREMITIES: No lower extremity edema. LABORATORY DATA: White blood cell count 4.5, hemoglobin 9.8, platelets 118. INR 1.2. Creatinine 1. 28, last checked on 09/06/2017. IMPRESSION: 1. Large esophageal varices status post multiple band placement. His octreotide was weaned off toda y. 2. Alcoholic cirrhosis. Additional labs for other causes of liver disease are pending. 3. Alpha fetoprotein is pending. RECOMMENDATIONS: 1. He is tolerating a solid diet now. 2. Can change to pantoprazole 40 mg daily. 3. Await alpha fetoprotein. 4. Anticipate discharge home tomorrow morning. I will add a creatinine to be checked in the morning . If this is trending up, then we will need to evaluate this further. Otherwise, I will sign off fo r now. Please call if GI can be of assistance. 5. Follow up with Dr. Mckeon in GI clinic in a month.
[2017-09-10 05:37] LABS: Hemoglobin 9.5 g/dL (14.0-18.0)
[2017-09-10 05:47] LABS: Anion Gap 9 mmol/L (10-20); BUN (Urea Nitrogen) 15 mg/dL (8.4-25.7); Calc. Creatinine Clearance 95 mL/min (70-130); Calcium 9.2 mg/dL (7.8-10.44); Carbon Dioxide 29 mmol/L (22-29); Chloride 105 mmol/L (98-107); Estimated GFR-MDRD 57; Glucose 123 mg/dL (70-105); Sodium 139 mmol/L (136-145)
--- NOTE | 2017-09-10 08:09 | PDOC.FM ---
- Subjective Subjective: Pt seen at bedside in NAD. TIFFANIE overnight. Pt denies OSBORNE, CP, SOB, NVD, or abd pain. Pt tolerating diet well. - Objective MAR Reviewed: Yes Vital Signs & Weight: Vital Signs (12 hours) Temp Pulse Resp BP Pulse Ox 09/10/17 04:25 98.0 F 57 L 18 107/65 94 L 09/09/17 23:51 97.8 F 52 L 20 109/73 97 09/09/17 20:10 98.4 F 58 L 20 98 Weight Weight 101.559 kg I&O: 09/09/17 09/10/17 09/11/17 06:59 06:59 06:59 Intake Total 3464 980 Output Total 2130 Balance 1334 980 Result Diagrams: 09/10/17 05:14 09/10/17 05:14 Phys Exam - Physical Examination Constitutional: NAD HEENT: sclera anicteric Respiratory: no wheezing, clear to auscultation bilateral Cardiovascular: RRR, no significant murmur Gastrointestinal: soft, non-tender, positive bowel sounds Musculoskeletal: pulses present Neurological: moves all 4 limbs Psychiatric: normal affect, A&O x 3 Skin: cap refill <2 seconds Dx/Plan (1) Hematemesis Code(s): K92.0 - HEMATEMESIS Status: Acute Qualifiers: Nausea presence: with nausea Qualified Code(s): K92.0 - Hematemesis Plan: -pt presented with 1 day history of hematemesis endorsing vomiting blood clots -pt found to have symptomatic anemia with c/o dizziness and hgb 11 on admission -FOBT+ -pt notes he has been taking ASA daily, unknown dose along with PRN ibuprofen use -GI consulted from ED, recs greatly appreciated -EtOH history slightly inconsistent but pt notes 6 beers every 2 weeks -RUQ US shows fatty liver. no evidence of cirrhosis. -pt had EGD on 09/06 which showed 7 lower esophageal varices that were banded -cirrhosis workup pending per GI -octreotdie discontinued (2) Fatty liver Code(s): K76.0 - FATTY (CHANGE OF) LIVER, NOT ELSEWHERE CLASSIFIED Status: Acute Plan: -RUQ US shows fatty liver -counseling specialist EtOH cessation -cirrhosis workup pending per GI (3) Essential hypertension Code(s): I10 - ESSENTIAL (PRIMARY) HYPERTENSION Status: Acute Plan: -pt on home amlodipine and losartan -amlodipine restarted -continue to monitor (4) Hyperglycemia Code(s): R73.9 - HYPERGLYCEMIA, UNSPECIFIED Status: Acute Plan: -hyperglycemia on admission with glucose 172 -A1c of 6.0 -pt likely has glucose intolerance, counseling specialist dietary and lifestyle changes -metformin started - Plan Plan: dispo: Pt stable for discharge. Pt has plans to stay in [place] area. Will coordinate appts with GI and PCP.
[2017-09-10] MEDS: metFORMIN 500 MG TAB PO SCH (09:21)
[2017-09-10] MEDS: Amlodipine 5 MG TAB PO SCH (09:21)
[2017-09-10] MEDS: Losartan 25 MG TAB PO SCH (09:21)
[2017-09-10 12:08] LABS: CMV IgM AB Less than 30.0 AU/mL (0.0-29.9)
[2017-09-10 12:24] VITALS: BP 110/67; TEMP 97.9
--- NOTE | 2017-09-10 13:27 | PRG ---
DATE OF SERVICE: 09/10/2017 SUBJECTIVE: Mr. Meredith was admitted with upper GI bleeding secondary to esophageal varices which hav e been subsequently banded. Clinically, he is stable and in no distress. He is ready for discharge. His current hemoglobin level is 9.5 and vital signs; blood pressure is 110/67 with pulse rate of 50 .
--- NOTE | 2017-09-10 14:29 | DIS-2 ---
DATE OF ADMISSION: 11/06/2016 DATE OF DISCHARGE: 09/10/2017 RESIDENT: Dr. Macario Gross. ADMITTING ATTENDING: Dr. Vamshi Anaya. DISCHARGE ATTENDING: Dr. Inocencio Mcnair. CONSULTATIONS: Gastroenterology, Dr. Grupo Mckeon and Jf Mccoy. PROCEDURES: 1. Right upper quadrant ultrasound performed on 09/06/2017 showed fatty liver with thickened gallbladder. 2. EGD performed on 09/06/2017 showed mild atrophic gastropathy with no active bleeding, no gastric varices, normal duodenum, third portion, 3 columns of grade 4 varices in the distal esophagus without active bleeding, status post banding. DISCHARGE DIAGNOSES: 1. Acute upper gastrointestinal bleed secondary to grade 4 esophageal varices status post banding. 2. Normocytic anemia secondary to #1. 3. Hypertension. 4. Glucose intolerance with hemoglobin A1c of 6.0. 5. Fatty liver with ongoing rule out of underlying cirrhosis. DISCHARGE MEDICATIONS: 1. Losartan 50 mg p.o. b.i.d. 2. Amlodipine 5 mg p.o. b.i.d. 3. Metformin 500 mg p.o. q.a.m. with meals. 4. Pantoprazole 40 mg p.o. daily. HISTORY OF PRESENT ILLNESS AND HOSPITAL COURSE: The patient is a very pleasant 52-year-old gentleman who initially presented for complaints of hematemesis. The patient has no history of GI bleeds in the past. GI was consulted on admission and scheduled the patient for an EGD for which showed varices that were banded. The patient was thought to have an underlying cirrhosis, so has a workup currently pending including antibody studies. The most likely cause at this point seems to be related to alcohol intake. The patient had no recurrence of his symptoms throughout his hospital stay. After his EGD, the patient was placed on an octreotide drip along with Protonix and tolerated an introduction of a diet extremely well. The patient's hospital course was otherwise uncomplicated. DISPOSITION: Stable. DISCHARGE INSTRUCTIONS: 1. Location: Home. 2. Diet: Mechanical soft diet. 3. Activity: As tolerated. 4. Followup: The patient was instructed to establish care and followup with primary care physician at [facility]. The patient was also instructed to follow up with Dr. Jf Mccoy within 2 weeks for a planned outpatient EGD in 3 weeks. The patient was encouraged as to the importance of keeping his followup appointments as his workup for a possible underlying cirrhosis is still pending at this time. MARD
[2017-09-11 13:11] LABS: Mitochondrial (M2) Antibody SO 17.4 Units (0.0-20.0)
[2017-09-12 11:17] LABS: Antinuclear AB Positive (Negative); Smith Antibodies <0.2 AI (0.0-0.9); U1RNP/snRNP IGG Autoabs 2.2 AI (0.0-0.9)
--- NOTE | 2017-10-06 18:41 | EKG ---
Test Reason : PVC'S Blood Pressure : / mmHG Vent. Rate : 071 BPM Atrial Rate : 071 BPM P-R Int : 148 ms QRS Dur : 096 ms QT Int : 420 ms P-R-T Axes : 022 -04 093 degrees QTc Int : 456 ms Sinus rhythm with frequent Premature ventricular complexes Nonspecific ST and T wave abnormality Abnormal ECG Confirmed by EFRAIN ACUNA, SHANICE ([id number]), development editor JACQUI WILLIAM ([id number]) on 10/06/2017 6:40:19 PM Referred By: DR ZUNIGA Confirmed By:SHANICE ZUNIGA MD
== END 2017-09-10 15:30 | disposition home or self-care (01) | DRG 432 ==
LOC: ERS 12:44 → 2NO 20:22 → SURG A 09-09 16:15
PROVIDERS: ADMIT Emergency Medicine; ATTEND Emergency Medicine
PROC: 06L38CZ Occlusion of Esophageal Vein with Extraluminal Device, Via Natural or Artificial Opening Endoscopic (ICD-10-PCS; principal; 2017-09-06)
DX: K70.30 Alcoholic cirrhosis of liver without ascites (principal); I85.11 Secondary esophageal varices with bleeding; N17.9 Acute kidney failure, unspecified; K76.6 Portal hypertension; E66.01 Morbid (severe) obesity due to excess calories; D64.9 Anemia, unspecified; K92.1 Melena; E74.39 Other disorders of intestinal carbohydrate absorption; K29.40 Chronic atrophic gastritis without bleeding; K31.9 Disease of stomach and duodenum, unspecified; I10 Essential (primary) hypertension; F17.210 Nicotine dependence, cigarettes, uncomplicated; I49.3 Ventricular premature depolarization; R73.9 Hyperglycemia, unspecified; F10.10 Alcohol abuse, uncomplicated; K31.89 Other diseases of stomach and duodenum; K76.0 Fatty (change of) liver, not elsewhere classified; Z68.38 Body mass index [BMI] 38.0-38.9, adult
CPT/HCPCS: 36415; 36416; 76705; 80048; 80053; 80061; 80307; 82103; 82105; 82140; 82274; 82390; 82553; 82570; 82728; 83036; 83516; 83540; 83550; 83735; 84100; 84300; 84484; 85014; 85018; 85025; 85049; 85610; 85730; 86038; 86644; 86645; 86706; 86803; 86850; 86900; 86901; 87389; 93005; 96361; 96374; 96375; 99406; A4216; C9113; J2001; J2354; J2405; J2704; J7042; J7050

== ENCOUNTER 2017-12-10 01:33 | Inpatient (IN) | payer SELFPAY ==
[2017-12-10 02:28] LABS: #Eosinphils 0.2 thou/uL (0.0-0.7); #Lymphocytes 1.4 thou/uL (1.20-3.40); #Monocytes 0.4 thou/uL (0.11-0.59); #Neutrophils 3.2 thou/uL (1.40-6.50); %Basophils 0.1 % (0.0-1.0); %Eosinophils 4.6 % (0.0-10.0); %Lymphocytes 26.2 % (21.0-51.0); %Monocytes 8.1 % (0.0-10.0); %Neutrophils 60.9 % (42.0-75.0); Hemoglobin 9.1 g/dL (14.0-18.0); Mean Corpuscular HGB CONC 33.5 g/dL (32.0-36.0); Mean Corpuscular Volume 86.4 fl (80.0-94.0); Mean Platelet Volume 8.4 fL (7.4-10.4); Platelet Count 145 thou/uL (130-400); RBC Distribution Width 15.1 % (11.5-14.5); Red Blood Cell (RBC) Count 3.13 mill/uL (4.70-6.10); White Blood Cell (WBC) Count 5.3 thou/uL (4.8-10.8)
[2017-12-10 02:49] LABS: ALT (SGPT) 25 U/L (8-55); AST (SGOT) 19 U/L (5-34); Albumin 3.5 g/dL (3.5-5.0); Alkaline Phosphatase 84 U/L (40-150); Anion Gap 9 mmol/L (10-20); BUN (Urea Nitrogen) 19 mg/dL (8.4-25.7); Bilirubin, Total 0.8 mg/dL (0.2-1.2); Calc. Creatinine Clearance 0 mL/min (70-130); Calcium 9.2 mg/dL (7.8-10.44); Carbon Dioxide 25 mmol/L (22-29); Chloride 106 mmol/L (98-107); Estimated GFR-MDRD 54; Globulin 2.9 g/dL (2.4-3.5); Glucose 166 mg/dL (70-105); Lipase 31 U/L (8-78); Potassium 4.1 mmol/L (3.5-5.1); Protein, Total 6.4 g/dL (6.0-8.3); Sodium 136 mmol/L (136-145)
[2017-12-10] MEDS ORDERED: Ondansetron HCl/PF 4 MG/2 ML Vial ONE (04:04)
[2017-12-10 04:25] LABS: INR-International Normal Ratio 1.1; Prothrombin Time 14.7 SEC (12.0-14.7)
[2017-12-10 04:46] LABS: CKMB 0.4 ng/mL (0-6.6); Troponin I Less than 0.010 ng/mL (< 0.028)
[2017-12-10] MEDS ORDERED: Pantoprazole 40 MG VIAL ONE (04:57)
[2017-12-10] MEDS ORDERED: Octreotide Acetate 1,250 MCG in Sodium Chloride 0.9% 250 ML 250 ML IVPB SCH (05:15)
[2017-12-10] MEDS ORDERED: Pantoprazole 80 MG in Sodium Chloride 0.9% 100 ML IVP SCH (05:15)
[2017-12-10 06:31] LABS: Bilirubin Negative (Negative); Blood, Urine Negative (Negative); Clarity CLEAR (Clear); Glucose, Urine (Dipstick) Negative (Negative); Leukocyte Negative (Negative); Nitrite Negative (Negative); Protein, Urine (Dipstick) Negative (Neg-Trace); Specific Gravity, Urine 1.022 (1.002-1.036); Urobilinogen 0.2 mg/dL (0.2-1.0)
[2017-12-10] MEDS ORDERED: Ondansetron HCl/PF 4 MG/2 ML Vial IVP PRN ×2 (06:58→07:45)
[2017-12-10] MEDS ORDERED: Acetaminophen 325 MG TAB PO PRN ×2 (06:58→07:45)
[2017-12-10] MEDS ORDERED: Ondansetron ODT 4 MG TAB SL PRN (06:58)
[2017-12-10] MEDS ORDERED: Lactated Ringer's 1,000 ML IV SCH (07:00)
[2017-12-10] MEDS ORDERED: Acetaminophen 650 MG Suppository PR PRN (07:45)
[2017-12-10] MEDS ORDERED: Calcium Carbonate 500 MG ChewTAB PO PRN (07:45)
[2017-12-10] MEDS ORDERED: Ondansetron ODT 4 MG TAB PO PRN (07:45)
[2017-12-10] MEDS ORDERED: cloNIDine 0.1 MG TAB PO PRN (07:48)
--- NOTE | 2017-12-10 08:13 | RAD ---
PORTABLE CHEST: Date: 12/10/17 HISTORY: Chest pain. Technologist also describes history of hematemesis. FINDINGS: Heart size appears upper normal. Lung barrientos are clear. Vascular markings normal. IMPRESSION: No evidence of acute process. POS: [facility]
[2017-12-10 08:15] LABS: Hemoglobin 7.2 g/dL (14.0-18.0)
[2017-12-10 08:24] LABS: Iron 81 ug/dL (65-175); Iron Binding Capacity, Total 374 mcg/dL (261-462)
[2017-12-10] MEDS ORDERED: ISOVUE-370 76%-LOCM 1 ML ONE (09:25)
--- NOTE | 2017-12-10 09:31 | CT ---
PRELIMINARY REPORT/[facility]/EMERGENTY AFTER-HOURS PROCEDURE CT Abdomen and Pelvis With Intravenous Contrast CLINICAL HISTORY: 52 years old, male; Pain and signs and symptoms; Vomiting; Abdominal pain; Epigastr ic; Patient HX: 52 yo m presents to ed C/O x1 episode of hematemesis today. Family reports small amou nt of red blood in emesis. Pt also C/O epigastric abdominal pain. Pt denies bloody or black stools. No urinary complaints. Denies fever. States that pt was hospitalized here in september and saw dr. Gonzalez. Pt hash/ o varices and was banded twice, last a month ago. Pt also has h/o cirrhosis. TECHNIQUE: Axial computed tomography images of the abdomen and pelvis with intravenous contrast. Coronal reforma tted images were created and reviewed. CONTRAST: 70 mL of ISOVUE 370 administered intravenously. COMPARISON: No relevant prior studies available. FINDINGS: Lung bases: Mild atelectasis is seen in the left lung base. Heart: Coronary artery calcifications are noted. ABDOMEN: Liver: Nodular contours of the liver likely represents cirrhosis. Gallbladder and bile ducts: The gallbladder is underdistended. Mild pericholecystic fluid is seen aden und the gallbladder. No calcified stones. No ductal dilation. Pancreas: Unremarkable. No mass. No ductal dilation. Spleen: The spleen is mildly enlarged measuring 13 cm. Adrenals: Unremarkable. No mass. Kidneys and ureters: Unremarkable. No solid mass. No hydronephrosis. Stomach and bowel: The stomach is distended with a large amount of fluid and food. No mucosal thicken ing. Appendix: No findings to suggest acute appendicitis. PELVIS: Bladder: Mild thickening of the urinary bladder wall is likely due to under distention. Cystitis is n ot excluded. Reproductive: Unremarkable as visualized. ABDOMEN and PELVIS: Intraperitoneal space: No evidence of free air in the abdomen. No significant fluid collection. Bones/joints: There are mild degenerative changes present in the spine. No acute fracture. No disloca tion. Soft tissues: There is a small fat-containing umbilical hernia. Vasculature: Mild atherosclerotic calcifications affect the aorta and its branches. No abdominal aort ic aneurysm. Lymph nodes: Unremarkable. No enlarged lymph nodes. IMPRESSION: 1. Cirrhosis with mild splenomegaly likely represents portal hypertension. 2. Mild pericholecystic fluid can be seen with cirrhosis. 3. Mild thickening of the urinary bladder wall is likely due to under distention. Cystitis is not exc luded. Thank you for allowing us to participate in the care of your patient. Dictated and Authenticated by: June Henry MD 12/10/2017 6:28 AM Central Time ([place] & [place]) FINAL REPORT CT ABDOMEN AND PELVIS WITHOUT CONTRAST: Date: 12/10/17 FINDINGS/IMPRESSION: I agree with the preliminary report given by Paddy. POS: OFF
[2017-12-10] MEDS: Thiamine HCl 200 MG/2 ML VIAL SLOW IVP SCH (10:37)
[2017-12-10] MEDS ORDERED: Succinylcholine Chloride 20 MG/ML 10 ml SYRINGE FS ONE (10:42)
[2017-12-10] MEDS ORDERED: Lidocaine 1% PF 5 ML VIAL ONE (10:42)
[2017-12-10] MEDS ORDERED: PROPOFOL 200 MG/20 ML VIAL ONE (10:42)
[2017-12-10] MEDS ORDERED: PHENYLEPHRINE-NS 100 MCG/ML 10 ML SYRINGE ONE (10:42)
--- NOTE | 2017-12-10 12:10 | PDOC.PN ---
- Subjective Encounter Start Date: 12/10/17 Encounter Start Time: 11:00 Patient seen and examined. Note dictated. - Objective Resuscitation Status: Resuscitation Status FULL:Full Resuscitation MAR Reviewed: Yes Vital Signs & Weight: Vital Signs (12 hours) Temp Pulse Resp BP Pulse Ox 12/10/17 11:51 97.9 F 55 L 18 100/66 96 12/10/17 08:00 97.9 F 57 L 18 101/65 96 Result Diagrams: 12/10/17 04:49 12/10/17 02:13 Radiology Reviewed by me: Yes (CXR - no infiltrate) EKG Reviewed by me: Yes (SR) Phys Exam - Physical Examination Constitutional: NAD HEENT: PERRLA, moist MMs, sclera anicteric Neck: no nodes, no JVD, supple Respiratory: no wheezing, no rales, no rhonchi, clear to auscultation bilateral Cardiovascular: RRR, no significant murmur, no rub no heaves/pulsations Gastrointestinal: soft, no distention, positive bowel sounds mild epig tenderness, no rebound/guarding Musculoskeletal: edema present (trace +) Neurological: non-focal, normal sensation, moves all 4 limbs Lymphatic: no nodes Psychiatric: normal affect, A&O x 3 Skin: no rash Dx/Plan - Plan * Dictated Review of Systems - Review of Systems Constitutional: negative: fever, chills, sweats, weakness, malaise, other Eyes: negative: Pain, Vision Change, Conjunctivae Inflammation, Eyelid Inflammation, Redness, Other ENT: negative: Ear Pain, Ear Discharge, Nose Pain, Nose Discharge, Nose Congestion, Mouth Pain, Mouth Swelling, Throat Pain, Throat Swelling, Other Respiratory: negative: Cough, Dry, Shortness of Breath, Hemoptysis, SOB with Excertion, Pleuritic Pain, Sputum, Wheezing Cardiovascular: light headedness (mild - resolved). negative: chest pain, palpitations, orthopnea, paroxysmal nocturnal dyspnea, edema, other Gastrointestinal: Abdominal Pain. negative: Nausea, Vomiting, Diarrhea, Constipation, Melena, Hematochezia, Other Genitourinary: negative: Dysuria, Frequency, Incontinence, Hematuria, Retention Musculoskeletal: negative: Neck Pain, Shoulder Pain, Arm Pain, Back Pain, Hand Pain, Leg Pain, Foot Pain Skin: negative: Rash, Lesions, Scottie, Bruising, Other Neurological: negative: Weakness, Numbness, Incoordination, Change in Speech, Confusion, Seizures - Medications/Allergies Allergies/Adverse Reactions: Allergies Allergy/AdvReac Type Severity Reaction Status Date / Time No Known Allergies Allergy Verified 09/05/17 22:09 Medications: Current Medications Calcium Carbonate (Tums) 1,000 mg PO Q4H PRN PRN Reason: Heartburn or Indigestion Clonidine (Catapres) 0.1 mg PO Q4H PRN PRN Reason: Systolic BP > 180 Octreotide Acetate 1,250 mcg/ (Sodium Chloride) 251.25 mls @ 5.02 mls/hr IVPB INF EKEGAN PRN Reason: 25 MCG/HR Pantoprazole Sodium 80 mg/ (Sodium Chloride) 100 mls @ 10 mls/hr IVP INF KEEGAN Sodium Chloride (Normal Saline 0.9%) 1,000 mls @ 75 mls/hr IV .[id number] KEEGAN Ceftriaxone Sodium 1 gm/ (Syringe 0.4 ml/ Sterile Water) 10 mls @ 120 mls/hr SLOW IVP DAILY KEEGAN Ondansetron HCl (Zofran Odt) 4 mg PO Q6H PRN PRN Reason: Nausea/Vomiting Ondansetron HCl (Zofran) 4 mg IVP Q6H PRN PRN Reason: Nausea/Vomiting Sodium Chloride (Flush - Normal Saline) 10 ml IVF Q12HR [facility] Last Admin: 12/10/17 10:39 Dose: 10 ml Sodium Chloride (Flush - Normal Saline) 10 ml IVF PRN PRN PRN Reason: Saline Flush Thiamine HCl (Thiamine Hcl) 100 mg SLOW IVP Q24HR [facility] Last Admin: 12/10/17 10:37 Dose: 100 mg
--- NOTE | 2017-12-10 12:21 | HP ---
PRIMARY CARE PHYSICIAN: [facility]. PRIMARY DIRECTOR BIOLOGICS: The patient has seen Dr. Mckeon last admission. CHIEF COMPLAINT: GI bleeding. HISTORY OF PRESENT ILLNESS: The patient is a 52-year-old male, Kuwaiti speaking only, with cirrhosis, chronic anemia, and esophageal varices status post banding, presented to the emergency [facility] with the above complaints. The patient was admitted in August for similar complaints. He underwent EGD with banding. Last month, the patient was in [place] and was readmitted for upper GI bleeding. Per family report th e patient received around 10 units of PRBC along with EGD and banding. Around 1:00 a.m. while he was at home, he had sudden onset of hematemesis along with nausea. It was fresh blood per patient report. He also had some epigastric discomfort at that time. He had a bowel movement earlier without any melena or hematochezia. The patient is compliant with all of his medic ations. His abdominal discomfort was more or less generalized, 8/10, without any aggravating or reli eving factor, that has significantly improved. In the emergency room, initial vital signs showed temperature 98.9, respiration 18, pulse of 55, bloo d pressure of 126/73, O2 saturation 98% on room air. His initial hemoglobin was 9.1. Chest x-ray wa s negative for infiltrate. CT scan of the abdomen and pelvis showed cirrhosis with mild splenomegaly due to portal hypertension. He received 1 gram Rocephin, Protonix, Zofran, IV fluid and was started on octreotide and Protonix drip. PAST MEDICAL HISTORY: 1. Cirrhosis secondary to alcohol. 2. Portal hypertension. 3. Esophageal varices. 4. Chronic anemia. 5. Hypertension. 6. Impaired glucose tolerance with last hemoglobin A1c 6.0. PAST SURGICAL HISTORY: Several EGDs. ALLERGIES: No known drug allergies. CURRENT HOME MEDICATIONS: Family has the medication bottles from [employer] that includes propranolol 40 mg twice a day, spironolactone 25 b.i.d., losartan 50 b.i.d., sucralfate 1 gram 3 times a day, amlod ipine 5 mg daily, multivitamin 1 tablet daily. SOCIAL HISTORY: The patient currently lives at home. He has quit alcohol. He continues to smoke on and off. He is and lives with spouse. CODE STATUS: FULL CODE. FAMILY HISTORY: Negative for premature coronary artery disease or cirrhosis. REVIEW OF SYSTEMS/PHYSICAL EXAMINATION/LABORATORY FINDINGS: Please refer to my progress note from to day. IMPRESSION: 1. Upper gastrointestinal bleeding, probably secondary to esophageal varices. 2. Anemia secondary to acute gastrointestinal blood loss. His repeat H&H is 7.2 from 9.1. 3. History of hypertension. 4. History of esophageal varices requiring banding in the past. 5. Chronic kidney disease stage 3. 6. Impaired glucose tolerance. 7. History of hypertension. PLAN: The patient will be monitored on the medical floor. The patient will be kept n.p.o. We will c ontinue IV fluids with octreotide and Protonix drip. He will be started on thiamine. GI will be con sulted. We will transfuse him 1 unit of PRBC due to significant drop in his hemoglobin. His troponi ns were negative. Vitals will be obtained every 4 hours. Two wide bore IV lines. We will consider transfer to telemetry if his conditions worsen. The plan of care was discussed with the patient and the family in detail. They stated understanding. Empiric antibiotics will be initiated to prevent SBP.
--- NOTE | 2017-12-10 13:36 | CON ---
DATE OF CONSULTATION: 12/10/2017 GI INPATIENT CONSULTATION REQUESTING PHYSICIAN: Dr. Egan. REASON FOR CONSULTATION: GI bleeding with history of varices. HISTORY OF PRESENT ILLNESS: Handy Meredith is a 52-year-old man who speaks Kosovan only. 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 He was previously seen by my colleague, Dr. Mckeon in [facility] on last 08/2017 with acute hematemesis. This was his initial presentation of cirrhosis. E GD at that time demonstrated 4 trunks of large esophageal varices and 7 bands were placed with the di stal esophagus with good resolution of bleeding. The EGD was otherwise unremarkable at that time. T he patient was discharged on a nonselective beta brandi and encouraged to follow up for repeat EGD w ith banding. He was unable to get this done prior to spontaneous rebleeding. His family tells me th is occurred last month while he was in [place]. He had to be admitted to the hospital. On this day, he received 10 units of RBC transfusion. He had repeat EGD and repeat variceal banding and he was di scharged on propranolol. The patient did well for several weeks until early this morning. He woke u p with pain and bloating in the epigastrium as well as some nausea and headache. He then had a very small amount of bright red hematemesis. This is his only episode of hematemesis so far today. He reyes d a normal appearing bowel movement earlier today. He presented to the hospital for the hematemesis and has been found to be hemodynamically stable, but initial hemoglobin was 9.1, this declined to 7.2 , but actually bounced back up to 8.0 with no transfusion yet. He is on a Protonix and octreotide dr altamirano. Currently, still having a bit of pain in the epigastrium, but otherwise stable and no other comp laints. REVIEW OF SYSTEMS: Full review of systems including constitutional, head, eyes, ears, nose, throat, GI, , cardiovascular, respiratory, musculoskeletal, and neurologic systems is negative except as no oscar in the HPI. PAST MEDICAL HISTORY: Hypertension; chronic kidney disease stage 3; cirrhosis secondary to alcohol, recently diagnosed on 08/2017; esophageal varices with hemorrhage on 08/2017 and banding at that time ; esophageal variceal hemorrhage with banding in 11/2016 in [place]. OUTPATIENT MEDICATIONS: Amlodipine, losartan, propranolol 20 mg daily, spironolactone, multivitamin daily. ALLERGIES: No known drug allergies. INPATIENT MEDICATIONS: Include Protonix IV, octreotide IV and Rocephin IV. SOCIAL HISTORY: He smokes occasionally. He quit drinking alcohol recently. FAMILY HISTORY: Noncontributory. PHYSICAL EXAMINATION: VITAL SIGNS: Temperature 97.9, pulse 55, blood pressure 100/66, 96% oxygen saturation on room air. GENERAL: A 52-year-old gentleman lying in bed comfortably in no distress. SKIN: No jaundice, no rash visible or palpable. EYES: No scleral icterus. Extraocular movements intact. ENT: Mucous membranes moist, no oral lesions. LYMPH: No submandibular or supraclavicular lymphadenopathy. THYROID: Nontender to palpation. HEART: Regular rate and rhythm. LUNGS: Clear to auscultation bilaterally. ABDOMEN: Nondistended. Bowel sounds present, soft, tender to palpation in the epigastrium, but no g uarding, rebound tenderness. EXTREMITIES: No peripheral edema. LABORATORY STUDIES: Hemoglobin initially 9.1, dropped to 7.2, but on recheck it is 8.0 without trans fusion yet. WBC 5.3, platelets 145. INR 1.1, BUN 19, creatinine 1.38, total bilirubin 0.8, alkaline phosphatase 84, AST 19, ALT 25, albumin 3.5 and lipase 31. IMAGING STUDIES: CT of the abdomen and pelvis demonstrates nodular liver contour and mild splenomega ly with some mild pericholecystic fluid, but no significant ascites. No other abnormalities. ASSESSMENT AND PLAN: 1. Acute upper gastrointestinal bleeding, recurrent. 2. History of esophageal variceal hemorrhage status post banding in 08/2017 and 11/2017. 3. Anemia. 4. Cirrhosis, secondary to alcohol abuse. Patient is not having hemodynamically significant bleedin g. At this time, he had only a single episode of hematemesis; however, I am concerned given his comp elling history that he might have had a sentinel rebleed from an esophageal varix. We will proceed w ith esophagogastroduodenoscopy and likely repeat variceal banding later today. In the meantime, plea se continue the octreotide infusions as well as the antibiotics. Further recommendations following e ndoscopy.
[2017-12-10] MEDS ORDERED: Pantoprazole 80 MG, Admixture Fee 1 EACH in Sodium Chloride 0.9% 100 ML IVP SCH (14:30)
[2017-12-10] MEDS ORDERED: Midazolam HCl 2 mg/2 ml Vial ONE (14:33)
[2017-12-10 18:40] LABS: Hemoglobin 8.7 g/dL (14.0-18.0)
[2017-12-10] MEDS: Sodium Chloride 0.9% 1,000 ML IV SCH (18:42)
--- NOTE | 2017-12-10 20:50 | OP ---
DATE OF PROCEDURE: 12/10/2017 SURGEON: Romeo Aflonso MD [employer] SAL[employer] REPRESENTATIVE SURGEON: None. PROCEDURE: Esophagogastroduodenoscopy with variceal band ligation. INDICATIONS: 1. Acute upper gastrointestinal bleeding. 2. History of esophageal varices with recent bleeding and variceal band ligation in 08/2017 and 11/09 018. 3. Anemia. 4. Cirrhosis secondary to alcohol. MEDICATIONS: See anesthesia record. FINDINGS: After discussion of the risks, benefits and alternatives of the procedure, informed consen t was obtained and witnessed. Pre-endoscopic cardiopulmonary examination was verified. Timeout was performed before sedation was achieved. Sedation was achieved with anesthesia assistance in the endo scopy unit. The patient was under general anesthesia, endotracheally intubated for airway protection . He was placed in the left lateral decubitus position. A Pentax adult therapeutic upper endoscope was placed into the oropharynx and passed through the cricopharyngeus under direct visualization. Th e proximal and mid esophageal mucosa appeared normal. In the distal esophagus, there are multiple la rge esophageal varices and also some scarring consistent with recent variceal band ligation procedure s. However, in the very distal esophagus at 40 cm from the incisors, there is a very large dilated v arix with red ar signs and also a fibrin plug noted and this represents his likely a recent source of bleeding, carefully advance the endoscope beyond this area to examine the stomach and duodenum. T he patient has some diffuse portal hypertensive gastropathy particularly in the fundus, but no erosio ns, no ulcerations, no gastric varices. There is a small amount of old blood within the gastric antr um, but no fresh bleeding. The endoscope was advanced through the pylorus and into the first and sec ond portions of the duodenum, which appeared normal. At this point, the upper endoscope was withdraw n from the patient and the variceal band ligation device applied. The esophagus was then reintubated . I placed 3 bands to large varices in the distal esophagus including 1 band over the fibrin plug. Hemostasis was maintained. At this point, the upper endoscope was completely withdrawn and the patie nt allowed to recover. The patient tolerated the procedure well. There were no immediate post-proce dure complications. IMPRESSION: 1. Distal esophageal varices, large, with red ar sign and fibrin plug at [address] d to varices in the distal esophagus. 2. Scarring in the distal esophagus from prior esophageal variceal banding procedures. 3. No gastric varices. 4. Portal hypertensive gastropathy. 5. Small amount of old blood in the stomach, but no active bleeding. RECOMMENDATIONS: 1. Clear liquid diet today, then advanced as tolerated tomorrow if the patient is doing well and the re is no sign of overt rebleeding. 2. Octreotide drip needs to continue for 72 hours. This would be through at noon. 3. Continue antibiotics for GI bleeding in the context of cirrhosis. 4. The patient will need repeat EGD with variceal banding at a 3-[address] Mckeon.
[2017-12-11] MEDS: Sodium Chloride 0.9% 1,000 ML IV SCH (00:32)
[2017-12-11 05:39] LABS: Hemoglobin 8.4 g/dL (14.0-18.0); Platelet Count 122 thou/uL (130-400)
[2017-12-11 06:39] VITALS: BMI 31.4
[2017-12-11] MEDS: Pantoprazole 40 MG VIAL IVP SCH ×2 (08:19→20:17)
[2017-12-11] MEDS: Thiamine HCl 200 MG/2 ML VIAL SLOW IVP SCH (08:20)
[2017-12-11] MEDS: cefTRIAXone\\ROCEPHIN 1 GM, Syringe 0.4 ML in Sterile Water 9.6 ML SLOW IVP SCH (08:22)
[2017-12-11] MEDS ORDERED: cefTRIAXone\\ROCEPHIN 1 GM in Sodium Chloride 0.9% 100 ML IVPB SCH (09:00)
--- NOTE | 2017-12-11 16:29 | PRG ---
DATE OF SERVICE: 12/11/2017 SUBJECTIVE: Mr. Meredith is doing fine. He has not had any bowel movement since yesterday. There is no further abdominal pain, no nausea or vomiting. He has been tolerating clear liquids just fine. He has remained hemodynamically stable with stable hemoglobin. He has no complaints. OBJECTIVE: VITAL SIGNS: Temperature 98.2, pulse 57, blood pressure 118/64, 95% oxygen saturation on room air. GENERAL: No acute distress. HEART: Regular rate and rhythm. LUNGS: Clear to auscultation bilaterally. ABDOMEN: Soft and nontender to palpation. EXTREMITIES: No peripheral edema. LABORATORY STUDIES: Hemoglobin 8.4, hematocrit 26.0, platelets 122. INR is 1.1. ASSESSMENT AND PLAN: 1. Esophageal varices with recent hemorrhage, status post variceal band ligation x3 yesterday. 2. Acute on chronic anemia, stable. 3. Cirrhosis secondary to alcohol. 4. Portal hypertensive gastropathy. There has been no further evidence of rebleeding since variceal band ligation yesterday. Octreotide drip will need to continue for 72 hours total, to finish around noon on . We will go ahead and advance the patient's diet. Upon discharge, he needs to be back on his nonselective beta-brandi. We will also try to arrange for repeat EGD with re-banding at the 3-[address] Mckeon. YUE
[2017-12-11] MEDS ORDERED: Acetaminophen 325 MG TAB PO PRN (21:51)
--- NOTE | 2017-12-11 22:21 | PDOC.PN ---
- Subjective Encounter Start Date: 12/11/17 Encounter Start Time: 10:30 Patient seen and examined. No new complaints. No overnight events. No new GI bleed. On Octreotide drip. - Objective Resuscitation Status: Resuscitation Status FULL:Full Resuscitation MAR Reviewed: Yes Vital Signs & Weight: Vital Signs (12 hours) Temp Pulse Resp BP BP Pulse Ox 12/11/17 20:00 97.9 F 56 L 18 137/76 97 12/11/17 16:00 97.7 F 66 16 132/77 100 12/11/17 11:00 98.2 F 57 L 16 118/69 118/64 95 I&O: 12/10/17 12/11/17 12/12/17 06:59 06:59 06:59 Intake Total 650 Output Total 500 Balance 150 Result Diagrams: 12/11/17 04:24 12/10/17 02:13 Phys Exam - Physical Examination Constitutional: NAD Respiratory: no wheezing, no rales, no rhonchi, clear to auscultation bilateral Cardiovascular: RRR, no significant murmur, no rub no heaves/pulsations Gastrointestinal: soft, non-tender, no distention, positive bowel sounds Musculoskeletal: no edema Neurological: moves all 4 limbs Psychiatric: normal affect, A&O x 3 Dx/Plan - Plan DVT proph w/SCDs IMPRESSION: 1. Upper gastrointestinal bleeding, probably secondary to esophageal varices. 2. Anemia secondary to acute gastrointestinal blood loss. s/p 1 unit PRBC 3. History of hypertension. 4. History of esophageal varices requiring banding in the past. 5. Chronic kidney disease stage 3. 6. Impaired glucose tolerance. 7. History of hypertension. PLAN: * Cont Octreotide drip until per GI (Please see GI note) * GI input appreciated * Cont IV Protonix BID * s/p EGD with banding * AM labs * Resume Amlodipine in AM * Resume after discontinuation of Octreotide due to risk of bradycardia * Cont Walking program * Cont current meds as below Review of Systems - Review of Systems Respiratory: negative: Cough, Dry, Shortness of Breath, Hemoptysis, SOB with Excertion, Pleuritic Pain, Sputum, Wheezing Cardiovascular: negative: chest pain, palpitations, orthopnea, paroxysmal nocturnal dyspnea, edema, light headedness, other - Medications/Allergies Allergies/Adverse Reactions: Allergies Allergy/AdvReac Type Severity Reaction Status Date / Time No Known Allergies Allergy Verified 09/05/17 22:09 Medications: Current Medications Acetaminophen (Tylenol) 650 mg PO Q4H PRN PRN Reason: Pain 1-3 Last Admin: 12/11/17 21:58 Dose: 650 mg Amlodipine Besylate (Norvasc) 5 mg PO DAILY [facility] Calcium Carbonate (Tums) 1,000 mg PO Q4H PRN PRN Reason: Heartburn or Indigestion Clonidine (Catapres) 0.1 mg PO Q4H PRN PRN Reason: Systolic BP > 180 Octreotide Acetate 1,250 mcg/ (Sodium Chloride) 251.25 mls @ 5.02 mls/hr IVPB INF KEEGAN PRN Reason: 25 MCG/HR Ceftriaxone Sodium 1 gm/ (Syringe 0.4 ml/ Sterile Water) 10 mls @ 120 mls/hr SLOW IVP DAILY [facility] Last Admin: 12/11/17 08:22 Dose: 10 mls Ondansetron HCl (Zofran Odt) 4 mg PO Q6H PRN PRN Reason: Nausea/Vomiting Ondansetron HCl (Zofran) 4 mg IVP Q6H PRN PRN Reason: Nausea/Vomiting Pantoprazole Sodium (Protonix) 40 mg IVP Q12HR [facility] Last Admin: 12/11/17 20:17 Dose: 40 mg Sodium Chloride (Flush - Normal Saline) 10 ml IVF Q12HR [facility] Last Admin: 12/11/17 20:17 Dose: 10 ml Sodium Chloride (Flush - Normal Saline) 10 ml IVF PRN PRN PRN Reason: Saline Flush Sodium Chloride (Flush - Normal Saline) 10 ml IV Q12HR [facility] Last Admin: 12/11/17 20:18 Dose: Not Given Thiamine HCl (Thiamine Hcl) 100 mg SLOW IVP Q24HR [facility] Last Admin: 12/11/17 08:20 Dose: 100 mg
[2017-12-12 04:58] LABS: Platelet Count 115 thou/uL (130-400)
[2017-12-12] MEDS: Amlodipine 5 MG TAB PO SCH (08:32)
[2017-12-12] MEDS: Pantoprazole 40 MG VIAL IVP SCH ×2 (08:33→21:14)
[2017-12-12] MEDS: cefTRIAXone\\ROCEPHIN 1 GM, Syringe 0.4 ML in Sterile Water 9.6 ML SLOW IVP SCH (08:35)
[2017-12-12] MEDS: Thiamine HCl 200 MG/2 ML VIAL SLOW IVP SCH (08:38)
--- NOTE | 2017-12-12 11:39 | PRG ---
DATE OF SERVICE: 12/12/2017 GI INPATIENT DAILY PROGRESS NOTE SUBJECTIVE: Mr. Meredith is doing okay. He has a little bit of upper abdominal discomfort. Has not h ad a bowel movement for the past couple of days. No further nausea or vomiting. He is tolerating hi s diet just fine. Octreotide drip continues. OBJECTIVE: VITAL SIGNS: Temperature 97.6, pulse 54, blood pressure 112/73, 97% oxygen saturation on room air. GENERAL: No acute distress. HEART: Regular rate and rhythm. LUNGS: Clear to auscultation bilaterally. ABDOMEN: Bowel sounds present, though hypoactive, soft, nontender to palpation. EXTREMITIES: No peripheral edema. LABORATORY STUDIES: Hemoglobin 8.0, platelets 115. ASSESSMENT AND PLAN: 1. Esophageal varices with recent hemorrhage, status post variceal band ligation x3 two days on 10/2017. 2. Anemia, stable. 3. Cirrhosis secondary to alcohol. 4. Portal hypertensive gastropathy. Continue the octreotide drip for 1 more day for a total of 72 h ours. Continue diet. If no further evidence of bleeding tomorrow, I think he could be discharged fr om the hospital. Upon discharge, he needs to be back on his nonselective beta-brandi. 5. Constipation. This appears somewhat acute over the past couple of days. We will go ahead and or rajendra some lactulose.
--- NOTE | 2017-12-12 14:37 | PDOC.PN ---
- Subjective Encounter Start Date: 12/12/17 Encounter Start Time: 14:35 Subjective: no new complaints. no AP,nausea,melena/hematochezia - Objective Resuscitation Status: Resuscitation Status FULL:Full Resuscitation MAR Reviewed: Yes Vital Signs & Weight: Vital Signs (12 hours) Temp Pulse Resp BP BP BP Pulse Ox 12/12/17 12:15 50 L 16 109/68 99 12/12/17 11:58 97.3 F L 52 L 18 109/68 99 12/12/17 11:06 97.6 F 54 L 18 112/73 97 12/12/17 09:00 129/71 120/73 129/71 12/12/17 08:32 51 L 12/12/17 08:26 98.0 F 51 L 14 126/74 97 12/12/17 08:00 98.0 F 51 L 14 I&O: 12/11/17 12/12/17 12/13/17 06:59 06:59 06:59 Intake Total 650 270 Output Total 500 Balance 150 270 Result Diagrams: 12/12/17 03:41 12/10/17 02:13 Phys Exam - Physical Examination Constitutional: NAD HEENT: PERRLA, moist MMs, sclera anicteric, oral pharynx no lesions Neck: no nodes, no JVD, supple, full ROM Respiratory: no wheezing, no rales, no rhonchi, clear to auscultation bilateral Cardiovascular: RRR, no significant murmur Gastrointestinal: soft, non-tender, no distention, positive bowel sounds Musculoskeletal: no edema, pulses present Neurological: non-focal, normal sensation, moves all 4 limbs Psychiatric: normal affect, A&O x 3 Dx/Plan (1) Upper GI bleed Code(s): K92.2 - GASTROINTESTINAL HEMORRHAGE, UNSPECIFIED Status: Acute (2) Acute blood loss anemia Code(s): D62 - ACUTE POSTHEMORRHAGIC ANEMIA Status: Acute (3) Esophageal varices Code(s): I85.00 - ESOPHAGEAL VARICES WITHOUT BLEEDING Status: Acute Comment : s/p banding 12/10/17.On Octreotide drip (4) HTN (hypertension) Code(s): I10 - ESSENTIAL (PRIMARY) HYPERTENSION Status: Acute (5) CKD (chronic kidney disease) Code(s): N18.9 - CHRONIC KIDNEY DISEASE, UNSPECIFIED Status: Acute (6) Impaired glucose tolerance Code(s): R73.02 - IMPAIRED GLUCOSE TOLERANCE (ORAL) Status: Acute (7) Alcohol dependence Code(s): F10.20 - ALCOHOL DEPENDENCE, UNCOMPLICATED Status: Acute - Plan continue antibiotics, DVT proph w/SCDs Tolerating diet.cont PPI,Octreotide for 1 more day.GI recs appreciated -: H/H stable. -: Alcohal absctinence advised -: wallace AMIN home tomorrow if no activ ebleed & H/H stable. -: Losratan & Aldactone on hold due to low BP. * . Review of Systems - Review of Systems Constitutional: negative: fever, chills, sweats, weakness, malaise, other Eyes: negative: Pain, Vision Change, Conjunctivae Inflammation, Eyelid Inflammation, Redness, Other ENT: negative: Ear Pain, Ear Discharge, Nose Pain, Nose Discharge, Nose Congestion, Mouth Pain, Mouth Swelling, Throat Pain, Throat Swelling, Other Respiratory: negative: Cough, Dry, Shortness of Breath, Hemoptysis, SOB with Excertion, Pleuritic Pain, Sputum, Wheezing Cardiovascular: negative: chest pain, palpitations, orthopnea, paroxysmal nocturnal dyspnea, edema, light headedness, other Gastrointestinal: negative: Nausea, Vomiting, Abdominal Pain, Diarrhea, Constipation, Melena, Hematochezia, Other Genitourinary: negative: Dysuria, Frequency, Incontinence, Hematuria, Retention , Other Musculoskeletal: negative: Neck Pain, Shoulder Pain, Arm Pain, Back Pain, Hand Pain, Leg Pain, Foot Pain, Other Skin: negative: Rash, Lesions, Scottie, Bruising, Other Neurological: negative: Weakness, Numbness, Incoordination, Change in Speech, Confusion, Seizures, Other - Medications/Allergies Allergies/Adverse Reactions: Allergies Allergy/AdvReac Type Severity Reaction Status Date / Time No Known Allergies Allergy Verified 09/05/17 22:09 Medications: Current Medications Acetaminophen (Tylenol) 650 mg PO Q4H PRN PRN Reason: Pain 1-3 Last Admin: 12/11/17 21:58 Dose: 650 mg Amlodipine Besylate (Norvasc) 5 mg PO DAILY [facility] Last Admin: 12/12/17 08:32 Dose: 5 mg Calcium Carbonate (Tums) 1,000 mg PO Q4H PRN PRN Reason: Heartburn or Indigestion Clonidine (Catapres) 0.1 mg PO Q4H PRN PRN Reason: Systolic BP > 180 Octreotide Acetate 1,250 mcg/ (Sodium Chloride) 251.25 mls @ 5.02 mls/hr IVPB INF [facility] PRN Reason: 25 MCG/HR Last Admin: 12/12/17 05:46 Dose: 251.25 mls Ceftriaxone Sodium 1 gm/ (Syringe 0.4 ml/ Sterile Water) 10 mls @ 120 mls/hr SLOW IVP DAILY [facility] Last Admin: 12/12/17 08:35 Dose: 10 mls Lactulose (Lactulose) 20 gm PO BID [facility] Ondansetron HCl (Zofran Odt) 4 mg PO Q6H PRN PRN Reason: Nausea/Vomiting Ondansetron HCl (Zofran) 4 mg IVP Q6H PRN PRN Reason: Nausea/Vomiting Pantoprazole Sodium (Protonix) 40 mg IVP Q12HR [facility] Last Admin: 12/12/17 08:33 Dose: 40 mg Sodium Chloride (Flush - Normal Saline) 10 ml IVF Q12HR [facility] Last Admin: 12/12/17 08:35 Dose: 10 ml Sodium Chloride (Flush - Normal Saline) 10 ml IVF PRN PRN PRN Reason: Saline Flush Sodium Chloride (Flush - Normal Saline) 10 ml IV Q12HR [facility] Last Admin: 12/12/17 08:37 Dose: 10 ml Thiamine HCl (Thiamine Hcl) 100 mg SLOW IVP Q24HR [facility] Last Admin: 12/12/17 08:38 Dose: 100 mg
[2017-12-13 05:01] LABS: Hemoglobin 8.8 g/dL (14.0-18.0); Platelet Count 129 thou/uL (130-400)
[2017-12-13] MEDS: Thiamine HCl 200 MG/2 ML VIAL SLOW IVP SCH (08:34)
[2017-12-13] MEDS: Amlodipine 5 MG TAB PO SCH (08:35)
[2017-12-13] MEDS: cefTRIAXone\\ROCEPHIN 1 GM, Syringe 0.4 ML in Sterile Water 9.6 ML SLOW IVP SCH (08:41)
[2017-12-13] MEDS: Sodium Chloride 0.9% 1,000 ML IV SCH ×2 (10:15→18:45)
[2017-12-13] MEDS ORDERED: Propranolol 10 MG TAB PO SCH (14:45)
--- NOTE | 2017-12-13 15:12 | PDOC.PN ---
- Subjective Encounter Start Date: 12/13/17 Encounter Start Time: 15:10 Subjective: feels well. no AP/nausea/vomiting/diarrhea -: no hematochezia/melena - Objective Resuscitation Status: Resuscitation Status FULL:Full Resuscitation MAR Reviewed: Yes Vital Signs & Weight: Vital Signs (12 hours) Temp Pulse Resp BP BP Pulse Ox 12/13/17 12:23 98.0 F 51 L 18 111/71 98 12/13/17 08:35 59 L 120/75 12/13/17 08:00 97.9 F 63 16 120/75 98 12/13/17 04:35 98.0 F 54 L 20 125/72 96 I&O: 12/12/17 12/13/17 12/14/17 06:59 06:59 06:59 Intake Total 270 170.8 Balance 270 170.8 Result Diagrams: 12/13/17 04:42 12/10/17 02:13 Additional Labs: Laboratory Tests 09/05/17 09/07/17 09/10/17 13:36 04:32 05:14 Creatinine 1.27 1.28 1.31 H 12/10/17 02:13 Creatinine 1.38 H Phys Exam - Physical Examination Constitutional: NAD HEENT: PERRLA, moist MMs, sclera anicteric, TM's clear, oral pharynx no lesions , 2+ tonsils Neck: no nodes, no JVD, supple, full ROM Respiratory: no wheezing, no rales, no rhonchi, clear to auscultation bilateral Cardiovascular: RRR, no significant murmur Gastrointestinal: soft, non-tender, no distention, positive bowel sounds Musculoskeletal: no edema, pulses present Neurological: non-focal, normal sensation, moves all 4 limbs Psychiatric: normal affect, A&O x 3 Skin: no rash Dx/Plan (1) Upper GI bleed Code(s): K92.2 - GASTROINTESTINAL HEMORRHAGE, UNSPECIFIED Status: Resolved (2) Acute blood loss anemia Code(s): D62 - ACUTE POSTHEMORRHAGIC ANEMIA Status: Acute Comment: H/H stable (3) Esophageal varices Code(s): I85.00 - ESOPHAGEAL VARICES WITHOUT BLEEDING Status: Acute Comment : s/p banding 12/10/17.On Octreotide drip (4) HTN (hypertension) Code(s): I10 - ESSENTIAL (PRIMARY) HYPERTENSION Status: Acute (5) CKD (chronic kidney disease) Code(s): N18.9 - CHRONIC KIDNEY DISEASE, UNSPECIFIED Status: Acute (6) Impaired glucose tolerance Code(s): R73.02 - IMPAIRED GLUCOSE TOLERANCE (ORAL) Status: Acute (7) Alcohol dependence Code(s): F10.20 - ALCOHOL DEPENDENCE, UNCOMPLICATED Status: Acute - Plan PT/OT, DVT proph w/SCDs Discussed w GI.will need to be started on Nonselectibe BB again -: Bardycardia noted w/o BB.will Stop Octreotide & start propranolol -: Monitor overnight for bradycardia.BP also on lower side. -: losartan and Aldactone on hold for RUDY -: Cr on higher side today.start NS * .Hold DC for now. * reassess in am * am labs Review of Systems - Review of Systems Constitutional: negative: fever, chills, sweats, weakness, malaise, other ENT: negative: Ear Pain, Ear Discharge, Nose Pain, Nose Discharge, Nose Congestion, Mouth Pain, Mouth Swelling, Throat Pain, Throat Swelling, Other Respiratory: negative: Cough, Dry, Shortness of Breath, Hemoptysis, SOB with Excertion, Pleuritic Pain, Sputum, Wheezing Cardiovascular: negative: chest pain, palpitations, orthopnea, paroxysmal nocturnal dyspnea, edema, light headedness, other Gastrointestinal: negative: Nausea, Vomiting, Abdominal Pain, Diarrhea, Constipation, Melena, Hematochezia, Other Genitourinary: negative: Dysuria, Frequency, Incontinence, Hematuria, Retention , Other Musculoskeletal: negative: Neck Pain, Shoulder Pain, Arm Pain, Back Pain, Hand Pain, Leg Pain, Foot Pain, Other Skin: negative: Rash, Lesions, Scottie, Bruising, Other Neurological: negative: Weakness, Numbness, Incoordination, Change in Speech, Confusion, Seizures, Other - Medications/Allergies Allergies/Adverse Reactions: Allergies Allergy/AdvReac Type Severity Reaction Status Date / Time No Known Allergies Allergy Verified 09/05/17 22:09 Medications: Current Medications Acetaminophen (Tylenol) 650 mg PO Q4H PRN PRN Reason: Pain 1-3 Last Admin: 12/11/17 21:58 Dose: 650 mg Calcium Carbonate (Tums) 1,000 mg PO Q4H PRN PRN Reason: Heartburn or Indigestion Clonidine (Catapres) 0.1 mg PO Q4H PRN PRN Reason: Systolic BP > 180 Octreotide Acetate 1,250 mcg/ (Sodium Chloride) 251.25 mls @ 5.02 mls/hr IVPB INF [facility] PRN Reason: 25 MCG/HR Last Admin: 12/12/17 05:46 Dose: 251.25 mls Ceftriaxone Sodium 1 gm/ (Syringe 0.4 ml/ Sterile Water) 10 mls @ 120 mls/hr SLOW IVP DAILY [facility] Last Admin: 12/13/17 08:41 Dose: 10 mls Sodium Chloride (Normal Saline 0.9%) 1,000 mls @ 125 mls/hr IV .Q8H [facility] Lactulose (Lactulose) 20 gm PO BID [facility] Last Admin: 12/13/17 08:35 Dose: 20 gm Ondansetron HCl (Zofran Odt) 4 mg PO Q6H PRN PRN Reason: Nausea/Vomiting Ondansetron HCl (Zofran) 4 mg IVP Q6H PRN PRN Reason: Nausea/Vomiting Pantoprazole Sodium (Protonix) 40 mg PO BID [facility] Last Admin: 12/13/17 08:35 Dose: 40 mg Propranolol HCl (Inderal) 20 mg PO ONE [facility] Stop: 12/13/17 16:00 Sodium Chloride (Flush - Normal Saline) 10 ml IVF Q12HR [facility] Last Admin: 12/13/17 08:35 Dose: 10 ml Sodium Chloride (Flush - Normal Saline) 10 ml IVF PRN PRN PRN Reason: Saline Flush Sodium Chloride (Flush - Normal Saline) 10 ml IV Q12HR [facility] Last Admin: 12/12/17 21:14 Dose: 10 ml Thiamine HCl (Thiamine Hcl) 100 mg SLOW IVP Q24HR [facility] Last Admin: 12/13/17 08:34 Dose: 100 mg
[2017-12-14] MEDS: Sodium Chloride 0.9% 1,000 ML IV SCH ×2 (01:43→08:38)
[2017-12-14 04:19] LABS: Hemoglobin 8.2 g/dL (14.0-18.0)
[2017-12-14 04:28] LABS: Anion Gap 11 mmol/L (10-20); BUN (Urea Nitrogen) 18 mg/dL (8.4-25.7); Calc. Creatinine Clearance 84 mL/min (70-130); Calcium 8.7 mg/dL (7.8-10.44); Carbon Dioxide 24 mmol/L (22-29); Chloride 107 mmol/L (98-107); Estimated GFR-MDRD 53; Glucose 130 mg/dL (70-105); Potassium 3.8 mmol/L (3.5-5.1); Sodium 138 mmol/L (136-145)
[2017-12-14] MEDS: cefTRIAXone\\ROCEPHIN 1 GM, Syringe 0.4 ML in Sterile Water 9.6 ML SLOW IVP SCH (08:35)
[2017-12-14] MEDS: Thiamine HCl 200 MG/2 ML VIAL SLOW IVP SCH (08:35)
[2017-12-14] MEDS ORDERED: Propranolol HCl 20 MG TAB PO SCH (12:15)
[2017-12-14 18:23] VITALS: BP 144/75; TEMP 98.1
--- NOTE | 2017-12-14 20:26 | DIS ---
DATE OF ADMISSION: 12/10/2017 DATE OF DISCHARGE: 12/14/2017 CONDITION AT THE TIME OF DISCHARGE: Stable and improved. DISCHARGE DISPOSITION: To home. PRIMARY CARE PHYSICIAN: [facility]. PRIMARY DISCHARGE DIAGNOSES: 1. Upper gastrointestinal bleed secondary to esophageal varices. 2. Acute blood loss anemia. 3. Esophageal varices status post banding on 12/10/2017. 4. Asymptomatic bradycardia. 5. Acute renal insufficiency. SECONDARY DISCHARGE DIAGNOSES: Hypertension, chronic kidney disease, impaired glucose tolerance, and alcohol dependence. DISCHARGE MEDICATIONS: As follows, Inderal 20 mg p.o. b.i.d., multivitamin daily, sucralfate 1 gram daily, Protonix 40 mg p.o. b.i.d. The patient is instructed not to take amlodipine anymore. He is a lso instructed to hold his Aldactone as well as losartan until he is seen by his primary care physici an with outpatient workup. INHOUSE CONSULTATIONS: Gastroenterology, Dr. Alfonso. PROCEDURES DONE IN THE HOSPITAL: 1. CT scan of the abdomen and pelvis on 12/10/2017, which showed cirrhosis with mild splenomegaly li jefferson representing portal hypertension as well as mild pericholecystic fluid and thickened urinary brittani dder wall due to under distention. 2. EGD on 12/10/2017 with variceal band ligation. This showed distal esophageal varices, large and red ar sign and fibrin plug at 40 cm. Three bands were placed. No gastric varices seen. Portal h ypertensive gastropathy seen. No active bleeding seen. HISTORY OF PRESENT ILLNESS: Mr. Meredith is a pleasant 52-year-old male with past medical his tory of alcoholic cirrhosis, portal hypertension, esophageal varices, chronic anemia, and hypertensio n, who presented to the emergency room for complaints of hematemesis and epigastric discomfort. He i s an established patient of [facility] with regards to his history of varices which have been banded in the past. He has failed to follow up. Upon presentation, he was hemodynamically sta ble. CT scan of the abdomen and pelvis was done, which showed cirrhosis and mild splenomegaly. He w as started on empiric antibiotic, Protonix and octreotide drip, and was admitted to medical floor. A t the time of admission, his hemoglobin was 7.2. He was transfused with 1 unit of packed RBC and Gas troenterology was consulted. Please see admission history and physical for further detail. HOSPITAL COURSE: Dr. Alfonso from GI Department saw the patient and recommended an endoscopy to look fo r the source of upper gastrointestinal bleed. This was done and showed esophageal varices without an y significant active bleeding. The varices were banded again. Octreotide was continued for a total of 72 hours. The patient was noted to have some acute renal insufficiency for which he was started on IV fluids. His losartan and Aldactone were held from the beginning. He was continued on Rocephin. His Inderal was held while he was on the octreotide. He had asymptomatic sinus bradycardia and for t his reason, once octreotide was discontinued: Inderal was added and the patient tolerated it without any symptoms. His heart rate remained in the low 50s from 50-54. His blood pressure was also initi ally on the lower side, but improved with IV fluids. Because of low blood pressure as well as acute renal insufficiency in the hospital: He was instructe d to hold his losartan and Aldactone until seen by primary care physician. He was instructed to get a BMP checked in 2-3 days with outpatient follow up with PCP. PHYSICAL EXAMINATION: He was seen and examined prior to discharge. VITAL SIGNS: His vital signs this morning, temperature 97.9, heart rate 51, blood pressure 135/76, s aturating 99% on room air. GENERAL: No acute distress, sitting up in bed, is at bedside. Awake, alert, oriented x3. CHEST: Clear to auscultation without any wheezing, rales or rhonchi. Rate and rhythm is regular wit hout any murmur, rubs or gallops. ABDOMEN: Soft, nontender, nondistended, positive bowel sounds. LABORATORY DATA: His hemoglobin is 8.2, which was 7.2 upon admission and his serum chemistry show cr eatinine of 1.41 with estimated GFR of 53. Discharge plan was discussed with the patient and was discussed with his [id number] over the sandra ne yesterday and all questions answered. They are strongly encouraged to follow up with Gastroentero logy as well as primary care physician as soon as possible. Total time spent 32 minutes.
[2017-12-14] MEDS ORDERED: Propranolol 10 MG TAB PO SCH (21:00)
--- NOTE | 2017-12-17 15:47 | EKG ---
Test Reason : Blood Pressure : / mmHG Vent. Rate : 063 BPM Atrial Rate : 063 BPM P-R Int : 140 ms QRS Dur : 090 ms QT Int : 428 ms P-R-T Axes : 026 015 062 degrees QTc Int : 437 ms Sinus rhythm with frequent Premature ventricular complexes Possible Left atrial enlargement Borderline ECG Confirmed by AMANDO BROWN M.D. ([id number]), editor index JACQUI WILLIAM ([id number]) on 12/17/2017 3:46:26 PM Referred By: Confirmed By:AMANDO BROWN M.D.
== END 2017-12-14 16:56 | disposition home or self-care (01) | DRG 432 ==
LOC: ERS 01:33 → T4-B 05:52
PROVIDERS: ADMIT Internal Medicine; ATTEND Internal Medicine
PROC: 06L38CZ Occlusion of Esophageal Vein with Extraluminal Device, Via Natural or Artificial Opening Endoscopic (ICD-10-PCS; principal; 2017-12-10)
PROC: 30233N1 Transfusion of Nonautologous Red Blood Cells into Peripheral Vein, Percutaneous Approach (ICD-10-PCS; 2017-12-10)
DX: K31.89 Other diseases of stomach and duodenum; I85.11 Secondary esophageal varices with bleeding; K70.30 Alcoholic cirrhosis of liver without ascites; R00.1 Bradycardia, unspecified; I12.9 Hypertensive chronic kidney disease with stage 1 through stage 4 chronic kidney disease, or unspecified chronic kidney disease; F17.210 Nicotine dependence, cigarettes, uncomplicated; D62 Acute posthemorrhagic anemia; F10.20 Alcohol dependence, uncomplicated; N18.3 Chronic kidney disease, stage 3 (moderate); I95.9 Hypotension, unspecified; R73.02 Impaired glucose tolerance (oral); N17.9 Acute kidney failure, unspecified; K59.00 Constipation, unspecified; K76.6 Portal hypertension
CPT/HCPCS: 36415; 36430; 71045; 74177; 80048; 80053; 81003; 82553; 82728; 83540; 83550; 83690; 84484; 85014; 85018; 85025; 85049; 85610; 86850; 86900; 86901; 90471; 90732; 93005; 96361; 96365; 96374; 96375; A4216; C9113; G0009; J0696; J2001; J2250; J2354; J2405; J2704; J3411; J7050; P9016

== ENCOUNTER 2018-01-04 10:10 | Day surgery (SDC) | payer OTHER, SELFPAY ==
[2018-01-03 12:11] VITALS: BMI 35.5
--- NOTE | 2018-01-04 13:54 | OP ---
DATE OF PROCEDURE: 01/04/2018 PROCEDURE: Esophagogastroduodenoscopy with band ligation. INDICATION FOR PROCEDURE: History of bleeding esophageal varices, cirrhosis. DESCRIPTION OF PROCEDURE: After the risks and benefits of the procedure were explained to the patien t including risks of bleeding, infection, perforation, reaction to anesthesia and/or pain, informed c onsent was obtained. The patient was then taken to the endoscopy suite where deep sedation was admin istered via propofol and anesthesia support. Once adequate sedation was achieved, the standard gastr oscope was introduced into the mouth with intubation of the esophagus, stomach, and proximal small in testine with the findings listed below. The patient tolerated the procedure well with no immediate p erioperative complications. FINDINGS: Esophagus: Normal-appearing mucosa was seen in the proximal and mid esophagus, 3 columns of grade 2/ 3 (large) esophageal varices were seen in the distal esophagus with the presence of sporadic red ar sign. There was no evidence of active/recent bleeding. Both the GE junction and diaphragmatic pinc h were both well seen at approximately 41 cm past the incisors. After initial evaluation of the uppe r GI tract, the gastroscope was then taken out of the patient with the band ligation device affixed t o the tip of the scope. Then, using the Super7 band ligating device from [employer], the mera roscope was readvanced into the mouth to the distal esophagus. Four bands were then successfully justin joby along the esophageal varices in the distal esophagus with minimal bleeding associated with this p art of the procedure. Deflation of the proximal varices was also seen during this exam. Stomach: A minimal amount of mucosal erythema in a mosaic pattern was seen in the gastric cardia, fu ndus, body, and incisura with no evidence of active/recent bleeding. Normal-appearing mucosa was see n in the gastric antrum. There was no evidence of erosions, ulcerations, or mass lesions. Duodenum: Normal-appearing mucosa was seen in both the duodenal bulb and second portion of the duode num with no evidence of erosions, ulcerations, mass lesions, or active/recent bleeding. IMPRESSION: 1. Large (grade 2/3) esophageal varices in the distal esophagus, status post successful band ligatio n with 4 bands. 2. Mild portal hypertensive gastropathy. 3. No evidence of gastric varices. RECOMMENDATIONS: 1. We would repeat EGD in approximately 4 weeks for reevaluation of the distal esophagus and re-band ing of any remaining esophageal varices. 2. We will continue patient on propranolol 30 mg twice daily as part of secondary prophylaxis for es ophageal varix bleeding. 3. We would follow up in clinic as scheduled on 02/01/2017 as part of continued monitoring for cirrh osis.
== END 2018-01-04 14:29 | disposition home or self-care (01) ==
LOC: SDC 10:10
PROVIDERS: ATTEND Internal Medicine
PROC: 06L38CZ Occlusion of Esophageal Vein with Extraluminal Device, Via Natural or Artificial Opening Endoscopic (ICD-10-PCS; principal; 2018-01-04)
DX: I85.00 Esophageal varices without bleeding (principal); K74.60 Unspecified cirrhosis of liver; K76.6 Portal hypertension; K31.89 Other diseases of stomach and duodenum

== ENCOUNTER 2018-01-09 20:45 | Inpatient (IN) | payer SELFPAY ==
[2018-01-09 21:33] LABS: #Eosinphils 0.1 thou/uL (0.0-0.7); #Monocytes 0.3 thou/uL (0.11-0.59); #Neutrophils 1.8 thou/uL (1.40-6.50); %Basophils 0.9 % (0.0-1.0); %Eosinophils 4.1 % (0.0-10.0); %Lymphocytes 29.6 % (21.0-51.0); %Monocytes 9.8 % (0.0-10.0); %Neutrophils 55.6 % (42.0-75.0); Hemoglobin 9.9 g/dL (14.0-18.0); Mean Corpuscular HGB CONC 33.3 g/dL (32.0-36.0); Mean Corpuscular Hemoglobin 29.4 pg (27.0-31.0); Mean Corpuscular Volume 88.4 fl (80.0-94.0); Mean Platelet Volume 7.3 fL (7.4-10.4); Platelet Count 126 thou/uL (130-400); RBC Distribution Width 15.3 % (11.5-14.5); Red Blood Cell (RBC) Count 3.35 mill/uL (4.70-6.10); White Blood Cell (WBC) Count 3.2 thou/uL (4.8-10.8)
[2018-01-09 21:50] LABS: ALT (SGPT) 22 U/L (8-55); AST (SGOT) 20 U/L (5-34); Albumin 3.9 g/dL (3.5-5.0); Alkaline Phosphatase 88 U/L (40-150); Anion Gap 10 mmol/L (10-20); BUN (Urea Nitrogen) 19 mg/dL (8.4-25.7); Bilirubin, Total 0.6 mg/dL (0.2-1.2); Calc. Creatinine Clearance 0 mL/min (70-130); Calcium 9.2 mg/dL (7.8-10.44); Carbon Dioxide 27 mmol/L (22-29); Chloride 105 mmol/L (98-107); Estimated GFR-MDRD 60; Globulin 2.8 g/dL (2.4-3.5); Glucose 131 mg/dL (70-105); Potassium 3.9 mmol/L (3.5-5.1); Protein, Total 6.7 g/dL (6.0-8.3); Sodium 138 mmol/L (136-145)
[2018-01-09] MEDS ORDERED: Pantoprazole 80 MG, Admixture Fee 1 EACH in Sodium Chloride 0.9% 100 ML IVP SCH (22:30)
[2018-01-09] MEDS ORDERED: Octreotide Acetate 1,250 MCG in Sodium Chloride 0.9% 250 ML 250 ML IVPB SCH (22:30)
[2018-01-09] MEDS ORDERED: Ondansetron ODT 4 MG TAB SL PRN (23:58)
[2018-01-09] MEDS ORDERED: Ondansetron HCl/PF 4 MG/2 ML Vial IVP PRN (23:58)
[2018-01-10 00:18] VITALS: BMI 35.7
[2018-01-10] MEDS ORDERED: Ondansetron HCl/PF 4 MG/2 ML Vial IVP PRN (00:40)
[2018-01-10] MEDS ORDERED: Bisacodyl 5 MG TAB PO PRN (00:40)
[2018-01-10] MEDS ORDERED: Octreotide Acetate 1,250 MCG in Sodium Chloride 0.9% 250 ML 250 ML IVPB SCH ×2 (00:45→15:30)
[2018-01-10] MEDS ORDERED: Pantoprazole 80 MG in Sodium Chloride 0.9% 100 ML IVP SCH (00:45)
--- NOTE | 2018-01-10 02:00 | HP ---
PRIMARY CARE PHYSICIAN: [facility]. CHIEF COMPLAINT: Black stools. HISTORY OF PRESENT ILLNESS: Mr. Meredith is a pleasant 52-year-old gentleman who were seen at [facility] on 01/10/2018. He has a history of esophageal varices. On 01/04/2018, he underwent banding as an outpatient. He reports that yesterday afternoon he started having black stools. He therefore came to the emergen cy room. He denies any nausea or vomiting. He reports some pain over the left upper quadrant that h as resolved. He denies any fevers or chills. He denies any lightheadedness or chest pain. REVIEW OF SYSTEMS: All others systems reviewed and negative. PAST MEDICAL HISTORY: Cirrhosis secondary to alcohol abuse, portal hypertension, esophageal varices, chronic anemia, hypertension, and impaired-glucose tolerance. PAST SURGICAL HISTORY: Several EGDs. ALLERGIES: No known drug allergies. FAMILY HISTORY: No family history of premature coronary artery disease. SOCIAL HISTORY: Patient denies any alcohol use, tobacco use, or recreational drug use. CURRENT MEDICATIONS: Protonix 20 mg in the morning and 10 mg in the evening. PHYSICAL EXAMINATION: GENERAL: Mr. Meredith is awake and alert, not in acute distress. VITAL SIGNS: Blood pressure is 155/95, pulse is 59. He is breathing at rate of 18, and saturating 9 7% on room air. He is afebrile. EYES: No scleral icterus, no conjunctival pallor. ENT: Moist mucous membranes, no oropharyngeal erythema or exudates. NECK: Supple, nontender, normal range of movement. Trachea is midline. RESPIRATORY: Accessory muscles of breathing are not active. Chest wall movements are symmetric bila terally. Lungs are clear to auscultation without wheeze, rhonchi, or crepitations. CARDIOVASCULAR: S1 and S2 are heard, regular. Peripheral pulses palpable. No carotid bruit, no per icardial rub. ABDOMEN: Soft, nontender, bowel sounds are heard, no hepatomegaly, no splenomegaly. NEUROLOGIC: Cranial nerves II-XII intact, deep tendon reflexes are 2+. MUSCULOSKELETAL: Power is 5/5 in all 4 extremities. SKIN: No rashes or subcutaneous nodules. LYMPHATIC: No cervical lymphadenopathy. PSYCHIATRIC: Normal mood, normal affect, patient is oriented to person, place, and time. LABORATORY DATA: Mr. Meredith's labs and investigations were reviewed. He has pancytopenia, with whit e count of 3200, hemoglobin 9.9, last known hemoglobin 8.2 on 12/14/2017, and platelet count of 126,0 00. He has an unremarkable comprehensive metabolic profile. ASSESSMENT AND PLAN: Mr. Meredith is a pleasant 52-year-old gentleman who was seen at [facility] on 01/10/2018. His problem list includes: 1. Gastrointestinal bleed: He is presenting with probable upper gastrointestinal bleed. He will be admitted to the hospital for further management. His case has been discussed by emergency room phys ician with insurance job [employer] on-call. Patient will be kept n.p.o. for possible scope studies in the morning. 2. Pancytopenia: Chronic, likely secondary to splenomegaly from liver cirrhosis. Patient is being continued on PPI drip and octreotide drip at this time. His hemoglobin will be chec ked in a.m. LEVEL OF RISK: Moderate. LEVEL OF COMPLEXITY: Moderate.
[2018-01-10 05:06] LABS: INR-International Normal Ratio 1.2; Prothrombin Time 15.8 SEC (12.0-14.7)
[2018-01-10 05:11] LABS: Anion Gap 10 mmol/L (10-20); BUN (Urea Nitrogen) 22 mg/dL (8.4-25.7); Calc. Creatinine Clearance 105 mL/min (70-130); Calcium 8.9 mg/dL (7.8-10.44); Carbon Dioxide 25 mmol/L (22-29); Chloride 106 mmol/L (98-107); Estimated GFR-MDRD 65; Glucose 146 mg/dL (70-105); Potassium 4.2 mmol/L (3.5-5.1); Sodium 137 mmol/L (136-145)
[2018-01-10 05:33] LABS: Band 1 % (5-11); Eosinophils 4 % (0-10); Hemoglobin 9.9 g/dL (14.0-18.0); Lymphocytes 33 % (21-51); MDiff Complete? YES; Mean Corpuscular HGB CONC 32.7 g/dL (32.0-36.0); Mean Corpuscular Hemoglobin 29.1 pg (27.0-31.0); Mean Corpuscular Volume 88.9 fl (80.0-94.0); Mean Platelet Volume 8.2 fL (7.4-10.4); Monocytes 9 % (0-10); Neutrophil 51 % (42-75); PLT Morphology Comment Appears Decreased; Platelet Count 81 thou/uL (130-400); RBC Distribution Width 15.2 % (11.5-14.5); Red Blood Cell (RBC) Count 3.39 mill/uL (4.70-6.10); White Blood Cell (WBC) Count 2.6 thou/uL (4.8-10.8)
[2018-01-10] MEDS ORDERED: Glycopyrrolate 0.2 MG/ML 5 ML SYRINGE ONE (12:51)
[2018-01-10] MEDS ORDERED: PHENYLEPHRINE-NS 100 MCG/ML 10 ML SYRINGE ONE (12:51)
[2018-01-10] MEDS ORDERED: Succinylcholine Chloride 20 MG/ML 10 ml SYRINGE FS ONE (12:51)
[2018-01-10] MEDS ORDERED: PROPOFOL 200 MG/20 ML VIAL ONE (12:51)
[2018-01-10] MEDS ORDERED: Fentanyl 100 MCG/2 ML VIAL ONE (14:26)
[2018-01-10] MEDS ORDERED: Ethanolamine Oleate 5% 2 ml Ampule ONE ×2 (14:52→14:53)
[2018-01-10] MEDS ORDERED: Propofol 1,000 MG/100 ML VIAL IV ONE (15:39)
[2018-01-10] MEDS ORDERED: cefTRIAXone\\ROCEPHIN 1 GM in Sodium Chloride 0.9% 100 ML IVPB SCH (15:52)
[2018-01-10 16:27] LABS: Hemoglobin 9.7 g/dL (14.0-18.0)
[2018-01-10 16:39] LABS: Actual Bicarbonate (HCO3a) 26.5 mEq/L (22-26); Base Excess (BEa) 0.6 mEq/L (0 (+/-) 2.5); CO2 Tension 48.5 mmHg (35.0-45.0); Calcium, Ionized 1.2 mmol/L (1.12-1.30); Hematocrit-ABG 29.1 % (42.0-52.0); O2 Tension (PaO2) 85.7 mmHg (80.0-100.0); pH, Arterial 7.36 (7.35-7.45)
[2018-01-10 16:40] LABS: ALV-art Gradient 117.485 (0-20); Peep/CPAP 5.5 cmH2O; Puncture Site LRA
[2018-01-10] MEDS ORDERED: Lacri-Lube Opth Oint 3.5 GM TUBE EA EYE PRN (16:46)
[2018-01-10] MEDS ORDERED: Ventilator Sedation Protocol 1 EACH FS SCH (17:00)
--- NOTE | 2018-01-10 17:00 | CON ---
DATE OF CONSULTATION: 01/10/2018 SERVICE: Pulmonary Medicine. REASON FOR CONSULTATION: Respiratory failure. HISTORY OF PRESENT ILLNESS: The patient is a 52-year-old male with past medical history sig nificant for cirrhosis and esophageal varices. He underwent banding a couple of days ago. Either wa y, he presented to the hospital with GI bleed. He was placed in observation, but had a significant d rop in hemoglobin. He went down for an emergent EGD. There was a bleeding spot that was identified. It was difficult to band because of previous residual scar tissue. Ultimately, band was placed and there was no active blood seen any longer. He cannot provide any additional elements of the history because he is encephalopathic and on mechanical ventilation requiring significant sedation. PAST MEDICAL HISTORY: 1. Cirrhosis secondary to alcohol abuse. 2. Esophageal varices. 3. Anemia. 4. Hypertension. 5. Prediabetes. PAST SURGICAL HISTORY: EGDs, several. ALLERGIES: No known drug allergies. MEDICATIONS: List of inpatient medications was reviewed. I have added some antibiotics. SOCIAL HISTORY: Negative for alcohol, tobacco or illicit drug use. FAMILY HISTORY: Noncontributory. REVIEW OF SYSTEMS: This cannot be obtained because the patient is intubated and sedated. PHYSICAL EXAMINATION: VITAL SIGNS: Afebrile, pulse 60, blood pressure 134/72, respirations 16, saturation 96% on room air. GENERAL: Patient is intubated and sedated. HEENT: Normocephalic, atraumatic. Sclerae are white, conjunctivae pink. Oral mucosa is moist witho ut lesions. LUNGS: Decent air entry. There is no prolonged expiratory phase or wheezing present. HEART: Normal rate and regular. ABDOMEN: Soft, nontender, nondistended. Bowel sounds are positive. MUSCULOSKELETAL: No cyanosis or clubbing. There is no pitting in the bilateral lower extremities. NEUROLOGIC: Grossly nonfocal. LABORATORY DATA: WBC 2.6, hemoglobin 9.9 and roughly stable, platelets 81,000 and down trending. IN R 1.2. PH 7.36, pCO2 48, pO2 86. Basic metabolic profile is essentially unremarkable. Liver functi on studies are unremarkable. Creatinine is down trending to 1.17. ASSESSMENT: 1. Acute blood loss anemia. 2. Bleeding varices. 3. Cirrhosis. 4. Respiratory failure secondary to inability to protect airway. PLAN: The patient will remain on mechanical ventilation overnight. If he remains hemodynamically st able and his hemoglobins are okay, we will go ahead and proceed with extubation. I have made some ad justments to the ventilator. Antibiotics will be added. Otherwise, supportive care including Proton ix and octreotide drip will be continued. CRITICAL CARE TIME: 30 minutes.
[2018-01-10] MEDS ORDERED: Propofol BOLUS 1,000 MG/100 ML VIAL IV PRN (17:17)
[2018-01-10] MEDS ORDERED: fentaNYL Citrate/PF 2,000 MCG in Sodium Chloride 0.9% 60 ML IV SCH (17:17)
[2018-01-10] MEDS ORDERED: Lorazepam 2 MG/ML VIAL SLOW IVP PRN (17:17)
[2018-01-10] MEDS ORDERED: Morphine 4 MG/ML VIAL SLOW IVP PRN (17:17)
[2018-01-10] MEDS ORDERED: DISCONTINUE PREVIOUS NARCOTIC PAIN MEDICATIONS AND BENZODIAZEPINES FS SCH (17:17)
[2018-01-10] MEDS ORDERED: Fentanyl BOLUS 250 ML IVPB PRN (17:17)
[2018-01-10] MEDS: cefTRIAXone\\ROCEPHIN 1 GM, Syringe 0.4 ML in Sterile Water 9.6 ML SLOW IVP SCH (18:03)
[2018-01-10] MEDS: Propofol 1,000 MG/100 ML VIAL IV PRN (18:57)
--- NOTE | 2018-01-10 22:03 | OP ---
DATE OF CONSULTATION: 01/10/2018 REASON FOR CONSULTATION: Black stools and belching up blood taste. HISTORY OF PRESENT ILLNESS: Mr. Meredith is a 52-year-old gentleman who was recently in this hospital, diagnosed with cirrhosis and varices. He initially was seen by Dr. Mckeon in 09/05/2017. He present ed with hematemesis, history of heavy NSAID use and alcohol abuse at that time and he underwent endos copy on 09/06/2017, three counts grade 4 varices in distal esophagus which were banded. Subsequent t o that, he was admitted in September. He was also admitted in early December and had EGD with Dr. Alfonso. Had variceal band ligation. At that time, he also presented with upper GI bleeding. More recently o n 01/04/2018, he underwent an outpatient EGD with variceal banding. He had 4 bands placed for large grade 2 of 3 varices in the distal esophagus on 01/04/2018. The patient presented to the emergency room last night stating that he had been feeling nauseated and belt up the blood taste he had before, he was afraid he has been started vomiting blood again, so he came to the emergency room. He also had several black stools, although he says he is taking iron pi lls. He has some vague abdominal pain in left upper abdomen. PAST MEDICAL HISTORY: Cirrhosis secondary to prior alcohol abuse, portal hypertension, esophageal va rices banding x3 in the past, chronic anemia, hypertension, impaired glucose tolerance. PAST SURGICAL HISTORY: EGDs as outlined above. ALLERGIES: None known. FAMILY HISTORY: Negative. SOCIAL HISTORY: The patient denies alcohol, drugs, tobacco. He states he is not drinking alcohol an y longer. MEDICATIONS: Protonix 20 mg in the morning and 10 mg in the evening. PHYSICAL EXAMINATION: VITAL SIGNS: Temperature 97.9, pulse 60, blood pressure 130/72. GENERAL APPEARANCE: He is in no distress. He is well-nourished. LUNGS: Clear. HEART: Regular rate and rhythm. ABDOMEN: Soft. Mild tender in left upper quadrant. There is no rebound. There is no guarding. LABORATORY DATA: White count 2.6, hemoglobin 9.9, it was 8.4 on 12/11/2017, it was 9.9 at 2100 hours , and it was 8.2 on 12/14/2017, platelet count is 81,000. INR 1.2. Basic metabolic profile normal. LFTs normal. ASSESSMENT AND PLAN: History of varices with prior bleeding from cirrhosis, now admission with nause a and vomiting, black stools, stable hemoglobin. He has been started appropriately on octreotide dri p and Protonix. We will plan for esophagogastroduodenoscopy today.
[2018-01-10 23:30] LABS: Hemoglobin 9.6 g/dL (14.0-18.0)
--- NOTE | 2018-01-10 23:41 | OP ---
PREPROCEDURE DIAGNOSES: 1. Gastrointestinal hemorrhage. 2. History of cirrhosis with varices from alcohol abuse in the past. 3. Most recent banding, 6 days ago. POSTPROCEDURE DIAGNOSES: 1. Grade III portal gastropathy, nonbleeding. 2. No gastric varices. 3. Two ulcers in the distal esophagus with previous variceal bleeding. 4. Fibrin clot over a varix in the distal third of the esophagus above the recent banding sites. Wi th passing the scope, began to have spontaneous continuous spurting of blood consistent with portal h ypertensive bleeding. Three bands were placed to control bleeding. ANESTHESIA: General endotracheal anesthesia. Patient began bleeding, second IV was replaced p atient had not been typed and crossed previously, so he was typed and crossed and he had his octreoti de bolus 250 and increased to 50 mcg per hour from 25. PROCEDURE IN DETAIL: After the patient was informed of the risks, benefits, possible complications, of endoscopy including perforation, bleeding, reactions to medication and aspiration, informed consen t was obtained. The patient was brought to endoscopy suite where he was prepped and draped in gradua l fashion. Once he was comfortable, a bite block was placed in incisural orifice. Once his airway w as secured with the ET tube the endoscope was advanced through the esophagus, stomach, second and thi rd portion of duodenum. There were two ulcers in the distal esophagus consistent with previous santos ng site. There were varices above this and lateral to them. There was one area of a punctate fibrin clot on the varix with red cat. When we passed this with the scope, it was not bleeding. We went down into the stomach, there was grade III portal gastropathy. No active bleeding. Retroflexed vie ws in full distention showed no evidence of gastric varices. The duodenum was normal as well. The s cope was brought into the esophagus. The area of the fibrin clot was watched. We were looking at th e ulcerated sites of previous banding to see if there were stigmata of bleeding that would need inter vention. There was not. The scope was then brought back and as we came over the varix with the fibr in clot, it began to bleed again escorting venous high pressure bleeding characterized by continuous flow. It was difficult, but the area had been banded in this area before, but ultimately able to get 3 bands in this area over the remaining varices and the bleeding stopped. This was in conjunction w ith maneuvers. By re-bolusing and increasing the octreotide, we will also to get blood typed and escrow secretary ssed and we get to start a second IV. PLAN: He will be transferred to the ICU. He is stable at this time. We will continue octreotide an d Protonix. We will give him antibiotics empirically for bleeding in the setting of cirrhosis and mo nitor his H&H. If hemoglobin drops below 7, we will consider transfusing but not until then.
[2018-01-11] MEDS: Propofol 1,000 MG/100 ML VIAL IV PRN ×2 (04:03→07:47)
[2018-01-11] MEDS: Octreotide Acetate 1,250 MCG in Sodium Chloride 0.9% 250 ML 250 ML IVPB SCH (04:03)
[2018-01-11 04:29] LABS: INR-International Normal Ratio 1.2; Prothrombin Time 15.8 SEC (12.0-14.7)
[2018-01-11 04:32] LABS: ALT (SGPT) 21 U/L (8-55); AST (SGOT) 20 U/L (5-34); Albumin 3.6 g/dL (3.5-5.0); Alkaline Phosphatase 65 U/L (40-150); Anion Gap 10 mmol/L (10-20); BUN (Urea Nitrogen) 26 mg/dL (8.4-25.7); Bilirubin, Total 0.5 mg/dL (0.2-1.2); Calc. Creatinine Clearance 83 mL/min (70-130); Calcium 8.7 mg/dL (7.8-10.44); Carbon Dioxide 27 mmol/L (22-29); Chloride 105 mmol/L (98-107); Estimated GFR-MDRD 50; Globulin 2.9 g/dL (2.4-3.5); Glucose 142 mg/dL (70-105); Potassium 4.1 mmol/L (3.5-5.1); Protein, Total 6.5 g/dL (6.0-8.3); Sodium 138 mmol/L (136-145)
[2018-01-11 07:29] LABS: Hemoglobin 9.6 g/dL (14.0-18.0)
--- NOTE | 2018-01-11 13:24 | PRG ---
DATE OF SERVICE: 01/11/2018 SERVICE: Pulmonary Medicine. INTERVAL HISTORY: The patient is doing great from a respiratory standpoint. His propofol is off. H e is waking up gently. He cannot provide any additional elements of the history, but there were no e vents overnight. He did not have any significant hematemesis. PHYSICAL EXAMINATION: VITAL SIGNS: Afebrile with T-max of 99.9, pulse 76, blood pressure 158/75, respirations 17, saturati on 96% on 27% FiO2. HEENT: Normocephalic, atraumatic. Sclerae are white, conjunctivae pink. Oral mucosa is moist witho ut lesions. LUNGS: Decent air entry without prolonged expiratory phase, wheezing, rhonchi or crackles. HEART: Normal rate, regular. ABDOMEN: Soft, nontender, nondistended. Bowel sounds are positive. MUSCULOSKELETAL: No cyanosis or clubbing. There is no pitting in the bilateral lower extremities. NEUROLOGIC: Grossly nonfocal. LABORATORY DATA: Hemoglobins have remained stable. They have gone from 9.9-9.6 with four blood draw s every 6 hours. INR 1.2. PH 7.36, pCO2 48 , pO2 85 on previous ventilator settings. Creatinine 1. 48 and gently up trending. Basic metabolic profile and liver function studies are unremarkable. Amm onia is only 43. ASSESSMENT: 1. Acute blood loss anemia. 2. Respiratory failure secondary to inability to protect airway. 3. Bleeding varices. 4. Cirrhosis. PLAN: We will complete a spontaneous breathing trial. If he meets criteria at the end of this thing , extubation will be considered. Pulmonary or Critical Care will continue to follow along while he r emains in this location, but from my perspective, if he can get up to a chair and start to mobilize b y the end of the day, he can be considered for transition to the floor. CRITICAL CARE TIME: 30 minutes.
--- NOTE | 2018-01-11 14:03 | PRG ---
DATE OF SERVICE: 01/11/2018 Mr. Meredith has been extubated. He has had no further bleeding. PHYSICAL EXAMINATION: VITAL SIGNS: T-max 99, pulse 76, blood pressure 152/75, respirations are 18. GENERAL: He is alert and oriented. His friend was at the bedside, conversed in French with his fam terri via [id number]. EXTREMITIES: Trace edema. LABORATORY STUDIES: Hemoglobin 9.6, BUN and creatinine are 26 and 1.48. Electrolytes are otherwise normal. Albumin is 3.6, AST and ALT are 20 and 21. ASSESSMENT: 1. Gastrointestinal hemorrhage from varices, banded yesterday. 2. Cirrhosis from alcohol. He does not drink any longer. Last CT was 12/10/2017, showed no liver masses. AFP was normal on 09/09/2017. Liver function tests now normal. Immunology was positive for THOMAS, but negative for pseudomuscle antibody, immunoglobulin levels are normal. Hepatitis A, B, and C have been negative. RECOMMENDATIONS: 1. Continued octreotide at 50 mcg per hour. Tomorrow if there is no bleeding, we can start weaning that off to 25 for 8 hours and then stopped it. 2. Change Protonix from drip to q.12h. 3. Continue antibiotics for prophylaxis secondary to gastrointestinal bleed in a cirrhotic. 4. Watch renal function. 5. Advance diet. 6. If the patient is stable he can go out of the ICU later today. Dr. Foreman will be covering this weekend.
[2018-01-11] MEDS: cefTRIAXone\\ROCEPHIN 1 GM, Syringe 0.4 ML in Sterile Water 9.6 ML SLOW IVP SCH (17:06)
--- NOTE | 2018-01-11 18:07 | PDOC.PN ---
- Subjective Encounter Start Date: 01/11/18 Encounter Start Time: 18:00 Subjective: f/u for UGI bleed due to variceal source s/p banding 01/10/18. s/p intubation -: now on O2 NC. Remains on Octreotide gtt and Protonix 40mg IV q12h. - Objective MAR Reviewed: Yes Vital Signs & Weight: Vital Signs (12 hours) Temp Pulse Resp BP Pulse Ox 01/11/18 16:00 97.8 F 01/11/18 11:00 99.0 F 01/11/18 10:50 96 01/11/18 09:30 99.0 F 58 L 20 96 01/11/18 08:00 99.0 F 20 01/11/18 07:53 62 131/71 01/11/18 07:00 99.9 F H Weight Admit Weight 221 lb 9.033 oz Weight 221 lb 6.4 oz Most Recent Monitor Data Heart Rate from ECG 84 NIBP 160/90 NIBP BP-Mean 133 Respiration from ECG 25 SpO2 94 I&O: 01/10/18 01/11/18 01/12/18 06:59 06:59 06:59 Intake Total 0 695 580 Output Total 783 107 3662 Balance -138 -210 -445 Result Diagrams: 01/11/18 03:41 01/11/18 03:42 Additional Labs: Laboratory Tests 01/09/18 01/09/18 01/10/18 21:18 21:18 04:46 Hgb 9.9 L Plt Count 126 L PT INR Creatinine 1.27 1.17 Ammonia 01/10/18 01/10/18 01/10/18 04:46 15:52 23:23 Hgb 9.9 L 9.7 L 9.6 L Plt Count 81 L PT INR Creatinine Ammonia 01/11/18 01/11/18 03:42 03:42 Hgb Plt Count PT 15.8 H INR 1.2 Creatinine Ammonia 43 EKG Reviewed by me: Yes (Tele - ) Phys Exam - Physical Examination Constitutional: NAD HEENT: PERRLA, moist MMs, sclera anicteric, oral pharynx no lesions Neck: no nodes, no JVD, supple Respiratory: no wheezing, no rales, no rhonchi, clear to auscultation bilateral S1, S2 Cardiovascular: RRR, no significant murmur, no rub, gallop Gastrointestinal: soft, non-tender, no distention, positive bowel sounds Musculoskeletal: no edema, pulses present Neurological: non-focal, normal sensation, moves all 4 limbs Psychiatric: normal affect, A&O x 3 Skin: no rash, normal turgor, cap refill <2 seconds Dx/Plan (1) Upper GI bleed Code(s): K92.2 - GASTROINTESTINAL HEMORRHAGE, UNSPECIFIED Status: Acute Comment: s/p banding x 3, continue Protonix 40mg IV q12h and Octreotide gtt, serial H/H monitoring, avoid all anticoagulation and NSAIDs (2) Portal hypertensive gastropathy Code(s): K76.6 - PORTAL HYPERTENSION; K31.89 - OTHER DISEASES OF STOMACH AND DUODENUM Status: Chronic Comment: [facility] (3) Acute blood loss anemia Code(s): D62 - ACUTE POSTHEMORRHAGIC ANEMIA Status: Acute Comment: H/H stable currently, serial monitoring due recent hemorrhage, T & C x 2 units (4) Hepatic cirrhosis Code(s): K74.60 - UNSPECIFIED CIRRHOSIS OF LIVER Status: Chronic Qualifiers: Hepatic cirrhosis type: alcoholic cirrhosis Comment: Medical mgmt as outpt, GI follow up (5) Pancytopenia Code(s): D61.818 - OTHER PANCYTOPENIA Status: Chronic Comment: Due to cirrhosis, serial monitoring, follow platelet trend - Plan continue antibiotics, psych social worker, DVT proph w/SCDs Stable currently -: No anticoagulation or NSAIDs -: Continue Protonix 40mg IV q12h -: Continue Octreotide gtt -: AM Lab: BMP, H/H * .
[2018-01-11] MEDS: Pantoprazole 40 MG VIAL IVP SCH (21:08)
[2018-01-12 05:45] LABS: Hemoglobin 9.3 g/dL (14.0-18.0)
[2018-01-12 05:57] LABS: Anion Gap 10 mmol/L (10-20); BUN (Urea Nitrogen) 16 mg/dL (8.4-25.7); Calc. Creatinine Clearance 96 mL/min (70-130); Calcium 8.6 mg/dL (7.8-10.44); Carbon Dioxide 27 mmol/L (22-29); Chloride 107 mmol/L (98-107); Estimated GFR-MDRD 59; Glucose 137 mg/dL (70-105); Potassium 3.8 mmol/L (3.5-5.1); Sodium 140 mmol/L (136-145)
[2018-01-12] MEDS: Octreotide Acetate 1,250 MCG in Sodium Chloride 0.9% 250 ML 250 ML IVPB SCH (06:37)
--- NOTE | 2018-01-12 08:20 | ULT ---
HEPATIC ULTRASOUND WITH DOPPLER: Date: 01/12/18 HISTORY: Cirrhosis and bleeding varices. FINDINGS: Liver appears unremarkable. Color Doppler and spectral analysis shows normal portal vein flow. No katerine dence of portal vein thrombus. The gallbladder is distended. There is evidence of echogenic sludge. No definite stones. Gallbladder wall is normal thickness. Common bile duct is normal caliber, measured at 5-6 mm. The pancreas is mos tly obscured. Visualized portions of the pancreatic bodies show mild prominence and some questionable peripancreatic edema. Color Doppler with spectral analysis shows normal flow in the portal veins, hepatic veins, hepatic ar heidi, splenic artery, and splenic vein. The right kidney is imaged and appears unremarkable. Technologist describes a positive Quinonez's sign. IMPRESSION: 1. Normal hepatic blood flow by Doppler. 2. Gallbladder mildly distended and there is evidence of echogenic sludge. 3. Question mild peripancreatic edema. POS: [facility]
[2018-01-12] MEDS: Pantoprazole 40 MG VIAL IVP SCH ×2 (08:29→21:57)
[2018-01-12] MEDS: Ferrous Fumarate 324 MG TAB PO SCH (13:25)
--- NOTE | 2018-01-12 14:14 | PDOC.PN ---
- Subjective Encounter Start Date: 01/12/18 Encounter Start Time: 14:12 Subjective: no more active bleeding.no hematochezia/melena - Objective MAR Reviewed: Yes Vital Signs & Weight: Vital Signs (12 hours) Temp Pulse Resp BP Pulse Ox 01/12/18 11:54 98.1 F 57 L 16 164/94 H 98 01/12/18 08:00 98.4 F 52 L 16 136/74 98 01/12/18 05:00 98.1 F 59 L 20 113/66 96 Weight Admit Weight 221 lb 9.033 oz Weight 214 lb 3.2 oz Most Recent Monitor Data Heart Rate from ECG 67 NIBP 151/76 NIBP BP-Mean 103 Respiration from ECG 15 SpO2 97 I&O: 01/11/18 01/12/18 01/13/18 06:59 06:59 06:59 Intake Total 695 1551.5 Output Total 905 1886 Balance -210 -334.5 Result Diagrams: 01/12/18 05:00 01/12/18 05:00 Additional Labs: Laboratory Tests 01/09/18 01/10/18 01/10/18 21:18 04:46 15:52 Hgb 9.9 L 9.9 L 9.7 L 01/10/18 01/11/18 01/12/18 23:23 03:41 05:00 Hgb 9.6 L 9.6 L 9.3 L Phys Exam - Physical Examination Constitutional: NAD HEENT: PERRLA, moist MMs, sclera anicteric, oral pharynx no lesions Neck: no nodes, no JVD, supple, full ROM Respiratory: no wheezing, no rales, no rhonchi, clear to auscultation bilateral Cardiovascular: RRR, no significant murmur, no rub, gallop Gastrointestinal: soft, non-tender, no distention, positive bowel sounds Musculoskeletal: no edema, pulses present Neurological: non-focal, normal sensation, moves all 4 limbs Psychiatric: normal affect, A&O x 3 Skin: no rash Dx/Plan (1) Upper GI bleed Code(s): K92.2 - GASTROINTESTINAL HEMORRHAGE, UNSPECIFIED Status: Acute Comment: s/p banding x 3, continue Protonix 40mg IV q12h and Octreotide gtt, serial H/H monitoring, avoid all anticoagulation and NSAIDs (2) Acute blood loss anemia Code(s): D62 - ACUTE POSTHEMORRHAGIC ANEMIA Status: Acute Comment: H/H stable currently, serial monitoring due recent hemorrhage, T & C x 2 units (3) Hepatic cirrhosis Code(s): K74.60 - UNSPECIFIED CIRRHOSIS OF LIVER Status: Chronic Qualifiers: Hepatic cirrhosis type: alcoholic cirrhosis Comment: Medical mgmt as outpt, GI follow up (4) Portal hypertensive gastropathy Code(s): K76.6 - PORTAL HYPERTENSION; K31.89 - OTHER DISEASES OF STOMACH AND DUODENUM Status: Chronic Comment: [facility] with beta-brandi (5) CKD (chronic kidney disease) Code(s): N18.9 - CHRONIC KIDNEY DISEASE, UNSPECIFIED Status: Acute (6) Esophageal varices Code(s): I85.00 - ESOPHAGEAL VARICES WITHOUT BLEEDING Status: Acute Comment : s/p banding 12/10/17 and 01/10/18.On Octreotide drip (7) Essential hypertension Code(s): I10 - ESSENTIAL (PRIMARY) HYPERTENSION Status: Acute - Plan DVT proph w/SCDs start Octreotide drip weaning. cont PPI drip.GI following -: monitor H/H.stable for now. -: restart Inderal once octreotide stops. -: wallace AMIN tomorrow am. -: am labs * . Review of Systems - Review of Systems Constitutional: negative: fever, chills, sweats, weakness, malaise, other Cardiovascular: negative: chest pain, palpitations, orthopnea, paroxysmal nocturnal dyspnea, edema, light headedness, other Gastrointestinal: negative: Nausea, Vomiting, Abdominal Pain, Diarrhea, Constipation, Melena, Hematochezia, Other Genitourinary: negative: Dysuria, Frequency, Incontinence, Hematuria, Retention , Other - Medications/Allergies Allergies/Adverse Reactions: Allergies Allergy/AdvReac Type Severity Reaction Status Date / Time No Known Allergies Allergy Verified 01/10/18 01:00 Medications: Current Medications Albuterol/Ipratropium (Duoneb) 3 ml NEB [id number] PRN PRN Reason: SOB &/or Wheezing Bisacodyl (Dulcolax) 10 mg PO DAILYPRN PRN PRN Reason: Constipation Ferrous Fumarate (Hemocyte) 324 mg PO DAILY KEEGAN Last Admin: 01/12/18 13:25 Dose: 324 mg Ceftriaxone Sodium 1 gm/ (Syringe 0.4 ml/ Sterile Water) 10 mls @ 120 mls/hr SLOW IVP Q24HR@1700 KEEGAN Last Admin: 01/11/18 17:06 Dose: 10 mls Fentanyl Citrate (Fentanyl Bolus) 250 mls @ 0 mls/hr IVPB PRN PRN; As Directed PRN Reason: Breakthrough pain/agitation Stop: 02/09/18 17:17 Octreotide Acetate 1,250 mcg/ (Sodium Chloride) 251.25 mls @ 10.05 mls/hr IVPB INF KEEGAN PRN Reason: 50 MCG/HR Last Admin: 01/12/18 06:37 Dose: 251.25 mls Ondansetron HCl (Zofran) 4 mg IVP Q6H PRN PRN Reason: Nausea/Vomiting Pantoprazole Sodium (Protonix) 40 mg IVP Q12HR [facility] Last Admin: 01/12/18 08:29 Dose: 40 mg Sodium Chloride (Flush - Normal Saline) 10 ml IVF Q12HR [facility] Last Admin: 01/12/18 08:33 Dose: 10 ml Sodium Chloride (Flush - Normal Saline) 10 ml IVF PRN PRN PRN Reason: Saline Flush
[2018-01-12] MEDS ORDERED: Octreotide Acetate 1,250 MCG in Sodium Chloride 0.9% 250 ML 250 ML IVPB SCH ×2 (14:17→14:30)
--- NOTE | 2018-01-12 14:38 | PRG ---
DATE OF SERVICE: 01/12/2018 SUBJECTIVE: Mr. Handy Meredith is a 52-year-old Latin-Polish male with liver cirrhosis, esophage al varices, status post banding. The patient came to the hospital, because of GI bleeding. He had a n EGD done by Dr. Mccoy 2 days ago and was found to have bleeding from esophageal varices. He under went variceal banding. He was in ICU overnight and was just transferred to floor yesterday. The pat beverley is on medical floor at the present time. He was seen in the room along with the patient's famil y. The patient is awake, alert, and communicative. He denies any chest pain, abdominal pain. No na usea, no vomiting. The patient had no stool today, but he had 1 stool yesterday and it was black and tarry. He is on IV octreotide at the present time. He has no complaints. PHYSICAL EXAMINATION: GENERAL: He is awake, alert, and communicative. VITAL SIGNS: His temperature is 98.1 degrees Fahrenheit, pulse is 57, blood pressure 164/94. CARDIOVASCULAR SYSTEM AND LUNGS: Within normal limits. ABDOMEN: Soft. Abdomen is nondistended. Abdomen is nontender. There is no organomegaly. LABORATORY DATA: The lab data from today shows a normal chem-7, the BUN is 16, dropped from 26; crea tinine is 1.28. Blood count is stable at 9.3 today. For the last 48 hours, his blood count did not drop anymore. On 01/09, it was 9.9, today 9.3. CLINICAL IMPRESSION: 1. Liver cirrhosis. 2. Gastrointestinal bleeding. 3. Esophageal varices, status post banding. RECOMMENDATION: 1. Advance diet to full liquid diet. 2. Taper on octreotide over the next 12 hours. 3. If he does well, advance diet to regular diet tomorrow.
[2018-01-12] MEDS: cefTRIAXone\\ROCEPHIN 1 GM, Syringe 0.4 ML in Sterile Water 9.6 ML SLOW IVP SCH (16:15)
[2018-01-13 05:09] LABS: Hemoglobin 7.7 g/dL (14.0-18.0)
[2018-01-13] MEDS: Pantoprazole 40 MG VIAL IVP SCH ×2 (08:12→20:10)
[2018-01-13] MEDS ORDERED: Propranolol 10 MG TAB PO SCH (09:12)
[2018-01-13] MEDS: Ferrous Fumarate 324 MG TAB PO SCH (09:52)
[2018-01-13 11:11] LABS: Hemoglobin 8.7 g/dL (14.0-18.0)
--- NOTE | 2018-01-13 15:07 | PDOC.PN ---
- Subjective Encounter Start Date: 01/13/18 Encounter Start Time: 15:02 Subjective: had 1 episode of hematochezia last night and 1 this morning -: no abd pain.no nausea/vomiting - Objective MAR Reviewed: Yes Vital Signs & Weight: Vital Signs (12 hours) Temp Pulse Resp BP Pulse Ox 01/13/18 12:34 98 F 50 L 16 132/81 95 01/13/18 08:00 97.8 F 56 L 16 155/80 H 98 01/13/18 03:52 98 F 55 L 20 108/59 L 95 Weight Admit Weight 221 lb 9.033 oz Weight 213 lb 8 oz Most Recent Monitor Data Heart Rate from ECG 67 NIBP 151/76 NIBP BP-Mean 103 Respiration from ECG 15 SpO2 97 I&O: 01/12/18 01/13/18 01/14/18 06:59 06:59 06:59 Intake Total 1551.5 870 0 Output Total 1886 Balance -334.5 870 0 Result Diagrams: 01/13/18 10:58 01/12/18 05:00 Phys Exam - Physical Examination Constitutional: NAD HEENT: PERRLA, moist MMs, sclera anicteric, oral pharynx no lesions Neck: no nodes, no JVD, supple, full ROM Respiratory: no wheezing, no rales, no rhonchi, clear to auscultation bilateral Cardiovascular: RRR, no significant murmur Gastrointestinal: soft, non-tender, no distention, positive bowel sounds Musculoskeletal: no edema, pulses present Neurological: non-focal, normal sensation, moves all 4 limbs Psychiatric: normal affect, A&O x 3 Skin: no rash Dx/Plan (1) Upper GI bleed Code(s): K92.2 - GASTROINTESTINAL HEMORRHAGE, UNSPECIFIED Status: Acute Comment: s/p banding x 3, continue Protonix 40mg IV q12h and Octreotide gtt, serial H/H monitoring, avoid all anticoagulation and NSAIDs (2) Acute blood loss anemia Code(s): D62 - ACUTE POSTHEMORRHAGIC ANEMIA Status: Acute Comment: serial monitoring due recent hemorrhage, T & C x 2 units (3) Hepatic cirrhosis Code(s): K74.60 - UNSPECIFIED CIRRHOSIS OF LIVER Status: Chronic Qualifiers: Hepatic cirrhosis type: alcoholic cirrhosis Comment: Medical mgmt as outpt, GI follow up (4) Portal hypertensive gastropathy Code(s): K76.6 - PORTAL HYPERTENSION; K31.89 - OTHER DISEASES OF STOMACH AND DUODENUM Status: Chronic Comment: [facility] tx with beta-brandi (5) CKD (chronic kidney disease) Code(s): N18.9 - CHRONIC KIDNEY DISEASE, UNSPECIFIED Status: Acute (6) Esophageal varices Code(s): I85.00 - ESOPHAGEAL VARICES WITHOUT BLEEDING Status: Acute Comment : s/p banding 12/10/17 and 01/10/18.On Octreotide drip (7) Essential hypertension Code(s): I10 - ESSENTIAL (PRIMARY) HYPERTENSION Status: Acute - Plan plan discussed w/ family, DVT proph w/SCDs hemoglobin dropped this morning.HD stable -: discussed w GI.will need TIPS & transfer to [facility] for same -: octreotide drip to be continued at higher rate for now -: 2 unit prbc ordered. follow H/h closely -: cont IV PPI and empiric ABx for SBP prophylaxis * . Review of Systems - Review of Systems Constitutional: negative: fever, chills, sweats, weakness, malaise, other ENT: negative: Ear Pain, Ear Discharge, Nose Pain, Nose Discharge, Nose Congestion, Mouth Pain, Mouth Swelling, Throat Pain, Throat Swelling, Other Respiratory: negative: Cough, Dry, Shortness of Breath, Hemoptysis, SOB with Excertion, Pleuritic Pain, Sputum, Wheezing Gastrointestinal: Hematochezia. negative: Nausea, Vomiting, Abdominal Pain, Diarrhea, Constipation, Melena, Other Genitourinary: negative: Dysuria, Frequency, Incontinence, Hematuria, Retention , Other Musculoskeletal: negative: Neck Pain, Shoulder Pain, Arm Pain, Back Pain, Hand Pain, Leg Pain, Foot Pain, Other Skin: negative: Rash, Lesions, Scottie, Bruising, Other - Medications/Allergies Allergies/Adverse Reactions: Allergies Allergy/AdvReac Type Severity Reaction Status Date / Time No Known Allergies Allergy Verified 01/10/18 01:00 Medications: Current Medications Albuterol/Ipratropium (Duoneb) 3 ml NEB [id number] PRN PRN Reason: SOB &/or Wheezing Bisacodyl (Dulcolax) 10 mg PO DAILYPRN PRN PRN Reason: Constipation Ferrous Fumarate (Hemocyte) 324 mg PO DAILY [facility] Last Admin: 01/13/18 09:52 Dose: Not Given Ceftriaxone Sodium 1 gm/ (Syringe 0.4 ml/ Sterile Water) 10 mls @ 120 mls/hr SLOW IVP Q24HR@1700 KEE[facility] Last Admin: 01/12/18 16:15 Dose: 10 mls Fentanyl Citrate (Fentanyl Bolus) 250 mls @ 0 mls/hr IVPB PRN PRN; As Directed PRN Reason: Breakthrough pain/agitation Stop: 02/09/18 17:17 Octreotide Acetate 1,250 mcg/ (Sodium Chloride) 251.25 mls @ 5.02 mls/hr IVPB INF KEEGAN PRN Reason: 25 MCG/HR Ondansetron HCl (Zofran) 4 mg IVP Q6H PRN PRN Reason: Nausea/Vomiting Pantoprazole Sodium (Protonix) 40 mg IVP Q12HR [facility] Last Admin: 01/13/18 08:12 Dose: 40 mg Sodium Chloride (Flush - Normal Saline) 10 ml IVF Q12HR [facility] Last Admin: 01/13/18 08:12 Dose: 10 ml Sodium Chloride (Flush - Normal Saline) 10 ml IVF PRN PRN PRN Reason: Saline Flush Last Admin: 01/12/18 22:03 Dose: 10 ml
[2018-01-13] MEDS: cefTRIAXone\\ROCEPHIN 1 GM, Syringe 0.4 ML in Sterile Water 9.6 ML SLOW IVP SCH (16:07)
[2018-01-13 17:18] LABS: Hemoglobin 10.2 g/dL (14.0-18.0)
--- NOTE | 2018-01-13 18:56 | PRG ---
DATE OF SERVICE: 01/14/2018 SUBJECTIVE: This is a 52-year-old male with liver cirrhosis and GI bleeding several t imes over the last month or so. He has had at least three EGDs done in the last one month. It was d one by Dr. Grupo Mckeon and then Dr. Romeo Alfonso and the most recent by Dr. Juan Mccoy about 3 days ago. Apparently, he has had some banding done already in the distal esophagus by Dr. Mccoy. The romana garcia was on octreotide. He did well on Sunday and yesterday. His blood count is stable. He has no abdominal pain, no nausea or vomiting. Around 2:00 a.m. this morning, he had black tarry stool and then another stool around 9:00. Blood count did drop down to 7.7 from 9.3. He is still on octreotide 25 mcg per hour. I increased her infusion to 100 mcg per hour this morning . The patient actually appears clinically much better. Does not offer any complaints. There is no abdominal pain, no nausea. He does not feel dizzy. His vital signs are actually stable. PHYSICAL EXAMINATION: VITAL SIGNS: His pulse is around 56, afebrile, blood pressure is 155/80. CARDIOVASCULAR SYSTEM AND LUNGS: Within normal limits. ABDOMEN: Soft to palpate. Abdomen is nontender. LABORATORY DATA: From today shows a hemoglobin dropping from 9.3 to 7.7. Hematocrit 22.5. Chemistry panel is not done today, but yesterday it was pretty normal. CLINICAL IMPRESSION: 1. Recurrent gastrointestinal bleeding due to bleeding from varicose veins versus portal gastropathy . The patient has some multiple bandings done over the last one month. Most recent one was done thr ee days ago. The patient has recurrence of bleeding again and blood count dropping from 9.3 to 7.7. Planned transfuse 2 units of packed RBCs. 2. Follow up H&H. 3. Increase octreotide to 100 mcg per hour. 4. Consider TIPS placement. He has had rectal bleeding from multiple variceal banding. I had a briana g talk with the patient through his daughter Brie who works in-house. I contacted Dr. Evert Call , who is a interventional radiologist at [facility]. He is agreeable to the procedure. Unfortu nately, there is no bed available in [facility] in [place]. PLAN: 1. N.p.o. 2. Continue IV octreotide. 3. Follow up H&H and possible transfer to [facility] for TIPS tomorrow.
[2018-01-13] MEDS ORDERED: traMADol HCl 50 MG TAB PO PRN (21:10)
[2018-01-13] MEDS ORDERED: Acetaminophen 325 MG TAB PO PRN (21:10)
[2018-01-14] MEDS: Octreotide Acetate 1,250 MCG in Sodium Chloride 0.9% 250 ML 250 ML IVPB SCH ×2 (00:58→17:09)
[2018-01-14] MEDS: Ferrous Fumarate 324 MG TAB PO SCH (08:08)
[2018-01-14] MEDS: Pantoprazole 40 MG VIAL IVP SCH ×2 (08:11→19:51)
--- NOTE | 2018-01-14 14:09 | PDOC.PN ---
- Subjective Encounter Start Date: 01/14/18 Encounter Start Time: 14:07 Subjective: feels Ok. denies any abd pain/nausea/vomiting/ -: 1 small blood tinged stools but no overt bleeding -: care discussed w pt and family present in room - Objective MAR Reviewed: Yes Vital Signs & Weight: Vital Signs (12 hours) Temp Pulse Resp BP Pulse Ox 01/14/18 11:51 97.5 F L 41 L 18 152/80 H 96 01/14/18 08:00 97.8 F 61 18 147/89 H 98 01/14/18 04:00 97.8 F 53 L 16 104/65 99 Weight Admit Weight 221 lb 9.033 oz Weight 212 lb 3 oz Most Recent Monitor Data Heart Rate from ECG 67 NIBP 151/76 NIBP BP-Mean 103 Respiration from ECG 15 SpO2 97 I&O: 01/13/18 01/14/18 01/15/18 06:59 06:59 06:59 Intake Total 870 2257 Balance 870 2257 Result Diagrams: 01/13/18 17:11 01/12/18 05:00 Additional Labs: Laboratory Tests 01/09/18 01/10/18 01/10/18 21:18 04:46 15:52 Hgb 9.9 L 9.9 L 9.7 L 01/10/18 01/11/18 01/12/18 23:23 03:41 05:00 Hgb 9.6 L 9.6 L 9.3 L 01/13/18 01/13/18 01/13/18 04:29 10:58 17:11 Hgb 7.7 L 8.7 L 10.2 L Phys Exam - Physical Examination Constitutional: NAD HEENT: PERRLA, moist MMs, sclera anicteric, oral pharynx no lesions Neck: no nodes, no JVD, supple, full ROM Respiratory: no wheezing, no rales, no rhonchi, clear to auscultation bilateral Cardiovascular: RRR, no significant murmur, no rub Gastrointestinal: soft, non-tender, no distention, positive bowel sounds Musculoskeletal: no edema, pulses present Neurological: non-focal, normal sensation, moves all 4 limbs Psychiatric: normal affect, A&O x 3 Skin: no rash Dx/Plan (1) Upper GI bleed Code(s): K92.2 - GASTROINTESTINAL HEMORRHAGE, UNSPECIFIED Status: Acute Comment: s/p banding x 3, continue Protonix 40mg IV q12h and Octreotide gtt, serial H/H monitoring, avoid all anticoagulation and NSAIDs. Trying to transfer to another hospital for TIPS procedure-Pt Uninsured (2) Acute blood loss anemia Code(s): D62 - ACUTE POSTHEMORRHAGIC ANEMIA Status: Acute Comment: serial monitoring due recent hemorrhage, T & C x 2 units yesterday. H/H stable today (3) Hepatic cirrhosis Code(s): K74.60 - UNSPECIFIED CIRRHOSIS OF LIVER Status: Chronic Qualifiers: Hepatic cirrhosis type: alcoholic cirrhosis Comment: Medical mgmt as outpt, GI follow up (4) Portal hypertensive gastropathy Code(s): K76.6 - PORTAL HYPERTENSION; K31.89 - OTHER DISEASES OF STOMACH AND DUODENUM Status: Chronic Comment: Retirement tx with beta-brandi (5) CKD (chronic kidney disease) Code(s): N18.9 - CHRONIC KIDNEY DISEASE, UNSPECIFIED Status: Acute (6) Esophageal varices Code(s): I85.00 - ESOPHAGEAL VARICES WITHOUT BLEEDING Status: Acute Comment : s/p banding 12/10/17 and 01/10/18.On Octreotide drip (7) Essential hypertension Code(s): I10 - ESSENTIAL (PRIMARY) HYPERTENSION Status: Acute (8) Sinus bradycardia Code(s): R00.1 - BRADYCARDIA, UNSPECIFIED Status: Acute - Plan continue antibiotics, PT/OT, respiratory therapy, incentive spirometry, out of bed/ambulate, DVT proph w/SCDs cont octreotide at higher dose for now.cont empiric ABx for SBp prophylaxis -: cont PPI IV BID. -: GI followinfg as well -: Waiting on transfer approval to higher level of care for TIPS procedure -: H/h stable but at very high risk of bleeding and of hemorrhage * .Asymptomatic bradycardia.no Rx for now.cont to monitor. * not on any BB or CCB. * labs reviewed.recheck in am Review of Systems - Review of Systems Constitutional: negative: fever, chills, sweats, weakness, malaise, other ENT: negative: Ear Pain, Ear Discharge, Nose Pain, Nose Discharge, Nose Congestion, Mouth Pain, Mouth Swelling, Throat Pain, Throat Swelling, Other Respiratory: negative: Cough, Dry, Shortness of Breath, Hemoptysis, SOB with Excertion, Pleuritic Pain, Sputum, Wheezing Cardiovascular: negative: chest pain, palpitations, orthopnea, paroxysmal nocturnal dyspnea, edema, light headedness, other Gastrointestinal: negative: Nausea, Vomiting, Abdominal Pain, Diarrhea, Constipation, Melena, Hematochezia, Other Genitourinary: negative: Dysuria, Frequency, Incontinence, Hematuria, Retention , Other Musculoskeletal: negative: Neck Pain, Shoulder Pain, Arm Pain, Back Pain, Hand Pain, Leg Pain, Foot Pain, Other Skin: negative: Rash, Lesions, Scottie, Bruising, Other Neurological: negative: Weakness, Numbness, Incoordination, Change in Speech, Confusion, Seizures, Other - Medications/Allergies Allergies/Adverse Reactions: Allergies Allergy/AdvReac Type Severity Reaction Status Date / Time No Known Allergies Allergy Verified 01/10/18 01:00 Medications: Current Medications Acetaminophen (Tylenol) 650 mg PO Q8H PRN PRN Reason: Headache/Fever or Pain Last Admin: 01/13/18 21:18 Dose: 650 mg Albuterol/Ipratropium (Duoneb) 3 ml NEB [id number] PRN PRN Reason: SOB &/or Wheezing Bisacodyl (Dulcolax) 10 mg PO DAILYPRN PRN PRN Reason: Constipation Ferrous Fumarate (Hemocyte) 324 mg PO DAILY [facility] Last Admin: 01/14/18 08:08 Dose: Not Given Ceftriaxone Sodium 1 gm/ (Syringe 0.4 ml/ Sterile Water) 10 mls @ 120 mls/hr SLOW IVP Q24HR@1700 [facility] Last Admin: 01/13/18 16:07 Dose: 10 mls Fentanyl Citrate (Fentanyl Bolus) 250 mls @ 0 mls/hr IVPB PRN PRN; As Directed PRN Reason: Breakthrough pain/agitation Stop: 02/09/18 17:17 Octreotide Acetate 1,250 mcg/ (Sodium Chloride) 251.25 mls @ 15 mls/hr IVPB INF [facility] Last Admin: 01/14/18 00:58 Dose: 251.25 mls Ondansetron HCl (Zofran) 4 mg IVP Q6H PRN PRN Reason: Nausea/Vomiting Pantoprazole Sodium (Protonix) 40 mg IVP Q12HR [facility] Last Admin: 01/14/18 08:11 Dose: 40 mg Sodium Chloride (Flush - Normal Saline) 10 ml IVF Q12HR [facility] Last Admin: 01/14/18 08:11 Dose: 10 ml Sodium Chloride (Flush - Normal Saline) 10 ml IVF PRN PRN PRN Reason: Saline Flush Last Admin: 01/12/18 22:03 Dose: 10 ml Tramadol HCl (Ultram) 25 mg PO Q8HR PRN PRN Reason: Pain
[2018-01-14] MEDS: cefTRIAXone\\ROCEPHIN 1 GM, Syringe 0.4 ML in Sterile Water 9.6 ML SLOW IVP SCH (16:37)
[2018-01-14] MEDS ORDERED: hydrALAZINE 20 MG/ML VIAL SLOW IVP PRN (18:24)
--- NOTE | 2018-01-14 18:32 | PRG ---
DATE OF SERVICE: 01/14/2018 SERVICE: Pulmonary Medicine. INTERVAL HISTORY: The patient is doing fine from a respiratory standpoint. He has no chest pain, nausea, vomiting or abdominal discomfort. Otherwise, he has returned to his usual state of health. PHYSICAL EXAMINATION: VITAL SIGNS: Afebrile, pulse 61, blood pressure 147/89, respirations 18, saturation 98% on room air. GENERAL: The patient is awake and alert, in no apparent distress. LUNGS: Decent air entry. There is no prolonged expiratory phase, wheezing, rhonchi, or crackles present. HEART: Normal rate, regular. ABDOMEN: Soft, nontender, nondistended. Bowel sounds are positive. MUSCULOSKELETAL: No cyanosis or clubbing. There is no pitting in the bilateral lower extremities. NEUROLOGIC: Grossly nonfocal. LABORATORY DATA: Hemoglobin transiently dropped to 7.7, but then came up to 10.2 with 2 more units of blood. ASSESSMENT: 1. Acute blood loss anemia. 2. Bleeding varices. 3. Cirrhosis. DISCUSSION AND PLAN: His hemoglobin dropped off yesterday, but once again stabilized. We have not seen any massive bleeding coming from his colon as of yet. That being said, I will continue to follow along for the time being. At this moment, his hemodynamics are stable. MARD
--- NOTE | 2018-01-14 20:47 | PRG ---
DATE OF SERVICE: 01/14/2018 REASON FOR CONSULTATION: Hematemesis, cirrhosis. SUBJECTIVE: Over the weekend, the patient had recently undergone EGD with repeat band ligation. However, within 24-48 hours after EGD with this particular procedure, he exhibited a drop in his H&H with a hemoglobin drop from 10 to 7 as well as the appearance of 2-3 black melenic stools indicative of active gastrointestinal bleeding. With his history of GI bleeding from esophageal varices, it was determined that he requires transfer for TIPS placement at an outside institution that is not performed at [facility]. At the current time, he is currently waiting for transfer. Upon speaking with the patient, he currently denies any nausea, vomiting, fevers, chills, shortness of breath, dysphagia, odynophagia or weight loss; however, he does state that this morning he had 2 bowel movements that were mixed with both bright red blood as well as a small amount of black melenic type stools. OBJECTIVE: VITAL SIGNS: Temperature 97.9, pulse 55, blood pressure 177/82, respiratory rate 16, satting 98% on room air. GENERAL: The patient sitting at bedside, in no acute distress. Alert and oriented x4. CARDIOVASCULAR: Regular rate and rhythm. RESPIRATORY: Clear to auscultation bilaterally. ABDOMEN: Normoactive bowel sounds, soft, nontender, nondistended. EXTREMITIES: No cyanosis, clubbing or edema. LABORATORY DATA: CBC with a hemoglobin of 10.2, hematocrit 30.9. Chemistry obtained on 01/12/2018 with a sodium of 140, potassium 3.8, chloride 107, CO2 27 , BUN 16, creatinine 1.28, glucose 137. IMAGING DATA: No current GI imaging is available for review. ASSESSMENT AND PLAN: The patient is a 52-year-old male with a past medical history of cirrhosis complicated by bleeding esophageal varices, presenting with repeat esophageal varix bleed and continued bleeding despite band ligation therapy. Variceal bleeding: The patient is presenting with a history of cirrhosis that was diagnosed in 08/2017 with complaints of hematemesis and melena at that particular point in time. He was determined to have large esophageal varices that required band ligation at that time as well. However, over the last 4-5 months, he has had approximately four upper endoscopies for repeated melenic stools or hematemesis for bleeding esophageal varices. At this point, I would consider this,failure of endoscopic management with band ligation and with his recent drop in H&H and melenic type stools during this admission, I would strongly consider him for urgent TIPSS placement. RECOMMENDATIONS: 1. Continue octreotide per orders. 2. Continue Protonix 40 mg b.i.d. 3. Continue antibiotics for prophylaxis secondary to gastrointestinal bleed in a cirrhotic. 4. Continue to trend H&H and transfuse as necessary to maintain an H&H of 7/21. 5. Continue to monitor for signs of clinical gastrointestinal bleeding. 6. Strongly encouraged transfer to a higher level of care to an institution that performs the TIPSS procedure for decompression of the portal system. We will continue to follow. Please call with any questions. YUE
[2018-01-14 21:35] VITALS: BP 164/77; TEMP 97.8
--- NOTE | 2018-01-15 12:46 | DIS ---
DATE OF ADMISSION: 01/10/2018 DATE OF DISCHARGE: 01/14/2018 CONDITION AT THE TIME OF DISCHARGE: Stable. DISCHARGE DISPOSITION: Inpatient transfer for higher level of care to [facility] in [place] . DISCHARGE DIAGNOSES: 1. Acute gastrointestinal bleed secondary to variceal bleeding. 2. Acute blood loss anemia, status post blood transfusion. 3. Chronic alcoholic liver disease. 4. Esophageal varices. 5. Sinus bradycardia - asymptomatic. 6. Portal hypertensive gastropathy. 7. Chronic kidney disease. 8. Hypertension. DISCHARGE MEDICATIONS: Rocephin 1 gram IV daily, Protonix 40 mg IV b.i.d., octreotide drip CONSULTATIONS: Inhouse Gastroenterology, Dr. Mccoy, Dr. Mckeon, and Dr. Foreman. PROCEDURES DONE IN THE HOSPITAL: Include EGD which showed grade III portal gastropathy, nonbleeding and no gastric varices. Two ulcers in the distal esophagus with previous variceal bleeding. Fibrin clot over the varix in the distal third of the esophagus above the recent banding sites. Three bands were placed again during this procedure on 01/10/2018. Abdominal ultrasound was normal. Hepatic flow by Doppler and mildly distended gallbladder with some sludge and mild peripancreatic edema. HISTORY OF PRESENT ILLNESS: Mr. Meredith is a 52-year-old male with past medical history of a lcoholic cirrhosis and upper gastrointestinal bleed due to esophageal varices recently in 12/2017, wh en he was admitted and underwent banding. He came to the hospital with complaints of black stools. He was admitted with a presumptive diagnosis of upper GI bleed secondary to known varices. HOSPITAL COURSE: The patient was started on IV proton pump inhibitors and Gastroenterology was consu lted. He was also started on octreotide drip and H&H was monitored. GI saw the patient and agreed with continuation of octreotide and added Rocephin for SBP prophylaxis. He was again taken to endoscopy and 3 more bands were placed at this time as well. The patient was stable after this and before the octreotide drip could be tapered off: He had more episodes of rakel tochezia and melena. He did have a drop in his hemoglobin count requiring 2 units of packed RBC samaniego sfusion. Because of recurrent bleed and recent banding x2 in the last 2 months, it was decided that the patien t will be best treated by TIPS procedure. For this transfer was arranged to [facility] Facility at [facility] and I have personally discussed his care with liver specialist and the hospitalist over there. Th ey have both graciously accepted the patient for the procedure. He was discharged on continuation of Rocephin: Proton pump inhibitor: Octreotide drip by IV route. He is hemodynamically stable. Please see hospitalist progress note from the date of discharge for further detail including face-to- face interaction. The patient will be accepted back to our facility once he is done with the TIPS pr ocedure that is urgently needed.
== END 2018-01-14 22:00 | disposition short-term general hospital (02) | DRG 441 ==
LOC: ERS 20:45 → OBSVTOIN 22:00 → 2SW 22:00 → CCU 01-10 15:30 → T4-B 01-11 21:53
PROVIDERS: ADMIT Internal Medicine; ATTEND Internal Medicine
PROC: 0W3P8ZZ Control Bleeding in Gastrointestinal Tract, Via Natural or Artificial Opening Endoscopic (ICD-10-PCS; principal; 2018-01-10)
PROC: 06L38CZ Occlusion of Esophageal Vein with Extraluminal Device, Via Natural or Artificial Opening Endoscopic (ICD-10-PCS; 2018-01-10)
PROC: 30233N1 Transfusion of Nonautologous Red Blood Cells into Peripheral Vein, Percutaneous Approach (ICD-10-PCS; 2018-01-13)
DX: K76.6 Portal hypertension (principal); I85.11 Secondary esophageal varices with bleeding; K22.11 Ulcer of esophagus with bleeding; J96.90 Respiratory failure, unspecified, unspecified whether with hypoxia or hypercapnia; D62 Acute posthemorrhagic anemia; D61.818 Other pancytopenia; K70.30 Alcoholic cirrhosis of liver without ascites; K31.89 Other diseases of stomach and duodenum; R00.0 Tachycardia, unspecified; D63.1 Anemia in chronic kidney disease; D73.2 Chronic congestive splenomegaly; I12.9 Hypertensive chronic kidney disease with stage 1 through stage 4 chronic kidney disease, or unspecified chronic kidney disease; N18.9 Chronic kidney disease, unspecified
CPT/HCPCS: 36415; 36430; 76705; 80048; 80053; 82140; 82805; 85014; 85018; 85025; 85610; 86850; 86900; 86901; 94002; 94003; 96365; A4216; C9113; J0360; J0696; J1430; J2354; J2704; J3010; J7050; P9016

== ENCOUNTER 2019-03-13 19:38 | Inpatient (IN) | payer SELFPAY ==
--- NOTE | 2019-03-13 20:10 | RAD ---
RADIOGRAPH CHEST 1 VIEW: DATE: 03/13/2019 HISTORY: 53-year-old male with fever FINDINGS: There is no airspace density, pulmonary edema, or pneumothorax. The lateral costophrenic angles are n ot effaced. IMPRESSION: No acute pulmonary findings.
[2019-03-13] MEDS ORDERED: Morphine 4 MG/ML VIAL ONE (20:24)
[2019-03-13 20:39] LABS: INR-International Normal Ratio 1.2; Prothrombin Time 14.7 SEC (12.0-14.7)
[2019-03-13 20:41] LABS: ALT (SGPT) 26 U/L (8-55); AST (SGOT) 27 U/L (5-34); Albumin 3.9 g/dL (3.5-5.0); Alkaline Phosphatase 131 U/L (40-150); Anion Gap 14 mmol/L (10-20); BUN (Urea Nitrogen) 11 mg/dL (8.4-25.7); Bilirubin, Total 3.4 mg/dL (0.2-1.2); Calc. Creatinine Clearance 0 mL/min (70-130); Calcium 9.8 mg/dL (7.8-10.44); Carbon Dioxide 20 mmol/L (22-29); Chloride 104 mmol/L (98-107); Estimated GFR-MDRD 70; Glucose 250 mg/dL (70-105); Lipase 18 U/L (8-78); Protein, Total 6.9 g/dL (6.0-8.3); Sodium 135 mmol/L (136-145)
[2019-03-13 20:42] LABS: #Lymphocytes 0.7 thou/uL (1.20-3.40); #Monocytes 0.5 thou/uL (0.11-0.59); %Basophils 0.3 % (0.0-1.0); %Eosinophils 0.3 % (0.0-10.0); %Lymphocytes 7.6 % (21.0-51.0); %Monocytes 5.6 % (0.0-10.0); %Neutrophils 86.3 % (42.0-75.0); Hemoglobin 14.9 g/dL (14.0-18.0); Mean Corpuscular HGB CONC 35.9 g/dL (32.0-36.0); Mean Corpuscular Hemoglobin 31.3 pg (27.0-31.0); Mean Corpuscular Volume 87.1 fL (78.0-98.0); Platelet Count 115 thou/uL (130-400); Platelet Morphology Comment Appears Decreased; RBC Distribution Width 13.9 % (11.5-14.5); Red Blood Cell (RBC) Count 4.75 mill/uL (4.70-6.10); White Blood Cell (WBC) Count 9.2 thou/uL (4.8-10.8)
[2019-03-13 20:45] LABS: Potassium 2.8 mmol/L (3.5-5.1)
[2019-03-13 20:49] LABS: Bacteria/HPF 1+ HPF (None Seen); Bilirubin Negative (Negative); Blood, Urine 2+ (Negative); Clarity Clear (Clear); Glucose, Urine (Dipstick) Greater than 1000 mg/dL (Negative); Leukocyte 250 Leu/uL (Negative); Nitrite Negative (Negative); Protein, Urine (Dipstick) 50 mg/dL (Neg-Trace); Squamous Epithelial 0-3 HPF (0-3); Urobilinogen 3 mg/dL (Less than 2); WBC/HPF Greater than 50 HPF (0-3)
--- NOTE | 2019-03-13 21:12 | CT ---
Exam: Head CT without contrast HISTORY: Headache. Altered mental status. COMPARISON: none FINDINGS: Hemorrhage: No intraparenchymal hemorrhage or extra-axial hematoma. Brain parenchyma: Cortical hodges-white matter differentiation is preserved. No mass effect or midline shift. Basilar cisterns are patent. Periventricular white matter hypodensities are minimal but are felt to be due to chronic small vessel ischemic change. Ventricular system: Ventricles and sulci are patent and symmetric. Calvarium: Intact. Sinuses and mastoid air cells: Adequate aeration. IMPRESSION: No acute intracranial process.
--- NOTE | 2019-03-13 21:22 | CT ---
Exam: Abdomen CT without contrast Pelvic CT without contrast HISTORY: Cirrhosis. Fever. Weakness. Abdominal pain. COMPARISON: None FINDINGS: Abdomen CT: Lung bases:Clear Heart size: Enlarged. No significant pericardial fluid. Aorta: Normal caliber. Atherosclerosis. Note is made of a TIPS procedure Solid organs: Limited evaluation due to lack of IV contrast. Mild nodularity of the liver, compatible with patient's history of cirrhosis. Mild splenomegaly, measuring 15.8 cm. Grossly no additional solid organ abnormalities. Lymph nodes: No gastrohepatic, retrocrural or periportal lymphadenopathy Gallbladder: Unremarkable Mesentery: No mass, lymphadenopathy, free air or free fluid Kidneys: Bilaterally, no hydronephrosis, nephrolithiasis or perinephric fat stranding. Bilateral uret ers have a normal caliber. No hydroureter, periureteral fat stranding or ureterolithiasis. Alimentary canal: Limited evaluation due to the lack of oral contrast. No evidence of bowel obstructi on. Normal ileocecal junction. Normal caliber appendix. Scattered diverticulosis. No diverticulitis. CT PELVIS: No mass, adenopathy, free air or free fluid. Urinary bladder: Mild mucosal thickening which may be due to inadequate distention. Correlate for cys titis. Osseous structures: No lytic or blastic lesions IMPRESSION: 1. Cirrhotic changes of the liver. 2. Splenomegaly 3. No evidence of bowel obstruction. Normal caliber appendix. 4. No evidence of obstructive uropathy. 5. Mild mucosal thickening of the urinary bladder which may be due to inadequate distention. Correlat e for cystitis.
[2019-03-13] MEDS ORDERED: cefTRIAXone\\ROCEPHIN 2 GM VIAL ONE (22:20)
[2019-03-13] MEDS ORDERED: Potassium Chloride 20 MEQ TAB ONE (22:20)
[2019-03-14] MEDS ORDERED: Dextrose 5% in Water 1,000 ML IV PRN (00:36)
[2019-03-14] MEDS ORDERED: Dextrose 50% Abboject 50 ML SYRINGE SLOW IVP PRN (00:36)
[2019-03-14] MEDS ORDERED: Ondansetron ODT 4 MG TAB PO PRN (00:40)
[2019-03-14] MEDS ORDERED: Ondansetron PF 4 MG/2 ML Vial IVP PRN (00:40)
[2019-03-14] MEDS ORDERED: Potassium Chloride 20 MEQ TAB PO SCH (00:45)
[2019-03-14] MEDS: Sodium Chloride 0.45% 1,000 ML IV SCH ×2 (01:17→09:35)
[2019-03-14 01:49] VITALS: BMI 38.2
--- NOTE | 2019-03-14 02:16 | HP ---
PRIMARY CARE PHYSICIAN: The patient goes to [facility]. CODE STATUS: Full code. TIME OF EVALUATION: 1 a.m. CHIEF COMPLAINT: Fever. HISTORY OF PRESENT ILLNESS: A 53 years old male patient, with past medical history of cirrhosis of the liver, came to the hospital after having fever, generalized weakness, headache, dysuria for the past 2 days with no clear triggers, no alleviating factors. Symptoms started insidiously and has been getting worse progressively to the point that the patient was unable to walk and do his activities of daily living. REVIEW OF SYSTEMS: CONSTITUTIONAL: The patient has fever, chills, generalized weakness. RESPIRATORY: No cough, sputum production, or shortness of breath. CARDIOVASCULAR: No chest pain or palpitation. GASTROINTESTINAL: No nausea, no vomiting, diarrhea, or abdominal pain. DELIVERY ARCHITECT: No dizziness, headache, or feeling lightheaded. GENITOURINARY: No burning on urination. EXTREMITIES: No leg swelling. All other systems were reviewed and negative except for the findings mentioned above. PAST MEDICAL HISTORY: Positive for hypertension, diabetes, cirrhosis of the liver. PAST SURGICAL HISTORY: The patient had TIPS procedure. PSYCHIATRIC HISTORY: No previous psych history. SOCIAL HISTORY: No alcohol, no drugs, no smoking history. KNOWN ALLERGIES: No known drug allergies. REPORTED MEDICATIONS: Protonix. Please see medication reconciliation for full list. FAMILY HISTORY: Reviewed and noncontributory to current presentation. PHYSICAL EXAMINATION: VITAL SIGNS: On presentation, blood pressure 145/82 with heart rate 120, respiratory rate was 18, temperature 102.1, pain was 8/10, oxygen saturation was 97% on room air. GENERAL APPEARANCE: The patient has ill appearance. He is alert, oriented, not in acute distress. HEENT: Eyes, normal conjunctivae. Moist oral mucosa. Anicteric. No JVD. RESPIRATORY: Bilateral air entry. No rales. No wheezes. Symmetric expansion. CARDIOVASCULAR: Normal rate, regular rhythm. No murmurs. No gallop. Bilateral leg edema. ABDOMEN: Soft. Normal bowel sounds. MUSCULOSKELETAL: Baseline range of motion and strength. SKIN: Warm, intact. No pallor. No rash. No redness. Capillary refill seems to be intact. NEURO: No evidence of any new focal weakness. Cranial nerves seems to be intact. PSYCH: The patient is in good mood. No anxiety. Optimal judgment. DIAGNOSTIC DATA: CT abdomen was done. The patient has cirrhotic changes of the liver and splenomegaly. Mild mucosal thickening of the urinary bladder which may be due to inadequate distention or cystitis. Brain CT was done. The patient had no acute intracranial process. The chest x-ray was done, showed no acute pulmonary findings. LABORATORY DATA: Reviewed. The patient has white count 9.2, hemoglobin 14.9, MCV 87, platelet count 115. Coagulation; PT 14.7, INR 1.2, PTT 33.6. Chemistry; sodium 135, potassium 2.8, chloride 104, carbon dioxide was 20, anion gap 14, BUN 11, creatinine 1.10, GFR 70, glucose 250, lactic acid 1.8, calcium 9.8, total bilirubin 3.4. LFTs were negative. Urine was done. The patient has glucosuria, proteinuria. White count greater than 50, too numerous to count and rbc's 7 to 10. Leukocyte esterase is 215. ASSESSMENT AND PLAN: The patient will be placed in the hospital with following medical problems: 1. Sepsis. The patient has fever, tachycardia. Source is urinary tract infections since the patient has a positive UA. The patient will receive fluids, antibiotics. We will follow cultures, we will adjust treatment as per sensitivity. 2. Hypokalemia. The patient has a potassium 2.8. We will replace electrolytes as needed. This is moderate. 3. Hyponatremia, sodium 135, this is mild, no need for any acute intervention. Monitor sodium and replace accordingly. 4. Uncontrolled diabetes. The patient has a blood sugar of 250. Place the patient on sliding scale for optimal control. 5. History of cirrhosis of the liver, status post TIPS. It seems to be stable at this point. Reconcile home medications. 6. Fluid overload. The patient is septic, needing fluids, might need to restart diuretics once the patient is more stable. 7. Urinary tract infection, unclear etiology. The patient has positive urine. Might need Urology evaluation that might be done possibly as outpatient. The patient has never been for BPH or prostate cancer. 8. Deep venous thrombosis prophylaxis. Job ID: [id number]
[2019-03-14] MEDS ORDERED: Vancomycin HCl 1 GM in Premix Bag 1 BAG IVPB SCH ×3 (04:00→15:00)
[2019-03-14] MEDS ORDERED: Acetaminophen 325 MG TAB PO PRN (04:09)
[2019-03-14] MEDS ORDERED: Vancomycin HCl 1.75 GM in Sodium Chloride 0.9% 500 ML IVPB SCH (05:00)
[2019-03-14 05:05] LABS: Anion Gap 12 mmol/L (10-20); BUN (Urea Nitrogen) 12 mg/dL (8.4-25.7); Calc. Creatinine Clearance 130 mL/min (70-130); Calcium 8.8 mg/dL (7.8-10.44); Carbon Dioxide 22 mmol/L (22-29); Chloride 103 mmol/L (98-107); Estimated GFR-MDRD 73; Glucose 301 mg/dL (70-105); Potassium 3.1 mmol/L (3.5-5.1); Sodium 134 mmol/L (136-145)
[2019-03-14 05:18] LABS: #Lymphocytes 0.9 thou/uL (1.20-3.40); #Monocytes 0.5 thou/uL (0.11-0.59); #Neutrophils 5.9 thou/uL (1.40-6.50); %Eosinophils 0.1 % (0.0-10.0); %Lymphocytes 11.7 % (21.0-51.0); %Monocytes 7.3 % (0.0-10.0); %Neutrophils 80.8 % (42.0-75.0); Hemoglobin 13.3 g/dL (14.0-18.0); Mean Corpuscular HGB CONC 35.5 g/dL (32.0-36.0); Mean Corpuscular Hemoglobin 31.5 pg (27.0-31.0); Mean Corpuscular Volume 88.5 fL (78.0-98.0); Mean Platelet Volume 7.4 fL (7.4-10.4); Platelet Count 78 thou/uL (130-400); RBC Distribution Width 13.9 % (11.5-14.5); Red Blood Cell (RBC) Count 4.23 mill/uL (4.70-6.10); White Blood Cell (WBC) Count 7.3 thou/uL (4.8-10.8)
[2019-03-14 05:19] LABS: Platelet Morphology Comment Appears Decreased
[2019-03-14] MEDS: HumaLOG 300 UNITS/3 ML VIAL SC PRN ×4 (06:09→20:17)
[2019-03-14] MEDS ORDERED: Enoxaparin Sodium 40 MG/0.4 ML SYRINGE SC SCH (09:00)
[2019-03-14] MEDS ORDERED: cefTRIAXone\\ROCEPHIN 1 GM in Sodium Chloride 0.9% 100 ML IVPB SCH (10:00)
[2019-03-14] MEDS ORDERED: Magnesium Sulfate 4 GM in Sodium Chloride 0.9% 250 ML 250 ML IVPB SCH (10:00)
--- NOTE | 2019-03-14 15:36 | PRG ---
DATE OF SERVICE: 03/14/2019 SUBJECTIVE: A 53-year-old male with alcoholic cirrhosis, esophageal varices, hypertension, and diabetes mellitus type 2, presented to the emergency room last night with generalized weakness, fever, headache, dysuria, along with cough. His temperature in the emergency room was 102.1 with pulse rate of 120, respirations of 18, blood pressure of 145/82. CT scan of the abdomen and pelvis showed cirrhotic changes of the liver along with splenomegaly and mild mucosal thickening of the urinary bladder. He received vancomycin, Rocephin, potassium, morphine with IV fluids in the emergency room. Symptomatically, the patient feels better. Temperature this morning was 101.3. He denies any nausea, vomiting, or diarrhea. No cough, shortness of breath, or wheezing reported. REVIEW OF SYSTEMS: All other review of systems was reviewed and were found negative. CURRENT MEDICATIONS: Reviewed. The patient is on ceftriaxone from the ER transition orders. He is also on mild sliding scale along with lactulose and potassium. OBJECTIVE: GENERAL: A 53-year-old male, in no apparent distress, feels better. VITAL SIGNS: This afternoon showed temperature 98.5, pulse rate of 64, respirations 20, blood pressure 101/65, O2 saturation 95% on room air. LUNGS: Symmetrical. Clear to auscultation bilaterally. Scattered rhonchi. No wheezing or rales noted. HEART: S1 and S2 present. Regular rate and rhythm. No rubs or gallops appreciated. ABDOMEN: Soft and nontender. Bowel sounds are present. No rebound or guarding. No costovertebral angle tenderness. EXTREMITIES: No calf tenderness. PSYCHIATRY: The patient is alert, awake, and oriented x3. Normal affect. PERIPHERAL VASCULAR: Radial pulses palpable bilaterally. LABORATORY FINDINGS: WBC 7.3, platelet count 78, hemoglobin 13.3, hematocrit 37.4. PT/INR, PTT normal range. Potassium was 2.8 this morning. Repeat potassium is 3.1, magnesium 1.4. Urinalysis showed greater than 50 wbc's with elevated leukocyte esterase. Urine cultures showed gram-negative rods. Blood culture negative. Influenza testing was negative. IMAGING STUDIES: 1. CT scan of the abdomen and pelvis by my review as discussed above. 2. Chest x-ray by my review was negative for infiltrate. 3. CT scan of the brain was negative for acute findings. IMPRESSION: 1. Sepsis suspected secondary to urinary tract infection. 2. Hypokalemia with potassium 2.8 on admission. 3. Hyponatremia. 4. Diabetes mellitus type 2, uncontrolled. 5. Thrombocytopenia secondary to cirrhosis. 6. Obesity with a BMI of 38.3. 7. Hypertension. 8. Esophageal varices. 9. Portal hypertensive gastropathy, status post TIPS procedure. 10. Chronic kidney disease, stage 2. 11. Hypomagnesemia. 12. Abnormal LFTs secondary to cirrhosis. 13. History of gastrointestinal bleeding secondary to esophageal varices requiring transfer to [facility] in January of 2018. PLAN: We will start the patient on vancomycin and ceftriaxone. We will discontinue Lovenox due to thrombocytopenia. Gentle IV hydration. We will resume Lantus. The patient states that he takes 15 units of Levemir at bedtime. Family to provide other home medications. We will replace magnesium. The patient has been started on lactulose. We will hold lactulose for now as the patient does not show any sign of encephalopathy. Recheck labs in a.m. Change sliding scale to moderate. We will consult Infectious Disease as exact source of sepsis appears to be unclear. However, UTI appears to be most likely. We will consult walking program. Plan of care was discussed with the patient and the family at the bedside. They stated understanding. Job ID: [id number]
[2019-03-14] MEDS: Potassium Chloride 10 MEQ TAB PO SCH (17:12)
[2019-03-14] MEDS: Vancomycin HCl 1.75 GM in Sodium Chloride 0.9% 500 ML IVPB SCH (17:13)
[2019-03-14] MEDS: NS 0.9% w/ 40 MEQ KCL 1,000 ML IV SCH (17:25)
--- NOTE | 2019-03-14 17:52 | CON ---
DATE OF CONSULTATION: 03/14/2019 REASON FOR CONSULTATION: Sepsis, fever. HISTORY OF PRESENT ILLNESS: A 53-year-old with history of alcoholism with cirrhosis of the liver, portal hypertension, hepatic encephalopathy, who had a TIPS procedure in [place] recently, and now presented with general malaise, fever, dysuria, increased urinary frequency, some headaches, some cough. No dyspnea. No chest pain. No abdominal pain. No diarrhea. No bleeding. The patient's initial findings included BP 140/80, pulse 120, respirations 18, temperature 102, O2 saturation 97. He was tachycardic on arrival. Lungs with clear breath sounds. No wheezing. Abdomen was not tender, soft. There was edema in lower extremities. Initial evaluations included white cell count 9.2, hemoglobin 14.9, platelets 115 with 86% neutrophils. Sodium 134, creatinine 1.06, and a bilirubin 3.4. Transaminases normal. Alkaline phosphatase 131, albumin 3.9, INR 1.2. Urinalysis with greater than 50 WBCs. Microbiology with true gram-negative rods, yet to be susceptibility tested. Influenza A and B negative. Two sets of blood cultures thus far no growth. The patient had an abdomen and pelvis CT on admission which showed cirrhosis, splenomegaly, no bowel obstruction, no obstructive uropathy, mild thickening of the urinary bladder. The patient is currently feeling better. No more dysuria. No urinary frequency. No incontinence. No headaches. No dyspnea or chest pain. No cough or sputum production. No abdominal pain. No flank pain. No joint symptoms. PAST MEDICAL HISTORY: 1. Obesity. 2. Alcoholism. 3. Liver cirrhosis. 4. Portal hypertension. 5. Upper GI bleeds. 6. Esophageal varices. 7. TIPS procedure. 8. Encephalopathy. 9. Ascites. 10. Type 2 diabetes. PAST SURGICAL HISTORY: As above. SOCIAL HISTORY: Never smoker. Used to drink heavily, but has discontinued. ALLERGIES: NONE. FAMILY HISTORY: Noncontributory. CURRENT MEDICATIONS: 1. Tylenol. 2. Ceftriaxone. 3. Insulin. 4. Lactulose. 5. Potassium. 6. Vancomycin. PHYSICAL EXAMINATION: VITAL SIGNS: T-max 102, now 93, BP 97/64, pulse 81, respirations 18, O2 saturation 95. GENERAL: Appears in no distress, oriented. No lymphadenopathy. No skin disorder. HEENT: Ocular movements conjugate. Pupils are equal. Oral cavity moist. Quite a few teeth in place with some decay and periodontitis. NECK: Supple. No jugular vein distention or carotid bruits. LUNGS: Symmetric. Clear breath sounds. HEART: S1, S2. Regular rate without murmurs. ABDOMEN: Slightly distended, but not tender. No ascites. No bladder distention. EXTREMITIES: No joint inflammatory activity. A 1+ edema in lower extremities. Pulses are 1+ in dorsalis pedis. NEURO: Nonfocal. No asterixis. Little bit drowsy, but oriented. Speech is normal. LABORATORY DATA: Followup labs; white cell count 7.3, hemoglobin 13, platelets 70,000, and creatinine 1.06. ASSESSMENT: 1. Liver cirrhosis from alcoholism. 2. Portal hypertension with esophageal varices and recurrent upper GI bleed, status post TIPS procedure in [place]. 3. Hepatic encephalopathy in the past, controlled with lactulose. 4. Likely BPH with no retention and invasive urinary tract infection with gram-negative rods. DISCUSSION: Check postvoid residual, PSA, and evaluate susceptibility results, and discharge planning with oral or IV antimicrobial therapy depending on susceptibility results. He probably needs to be on a prophylactic in view of the history of prior GI bleeds with either rifaximin or quinolone to prevent recurrence of infections associated with his portal hypertension. Job ID: [id number]
[2019-03-14] MEDS: cefTRIAXone\\ROCEPHIN 2 GM in Sodium Chloride 0.9% 100 ML IVPB SCH (20:16)
[2019-03-14] MEDS: Insulin Glargine 15 UNITS in Pre-Filled Syringe 1 EACH SC SCH (20:17)
[2019-03-15] MEDS: Vancomycin HCl 1.75 GM in Sodium Chloride 0.9% 500 ML IVPB SCH ×2 (05:03→16:27)
[2019-03-15] MEDS: NS 0.9% w/ 40 MEQ KCL 1,000 ML IV SCH ×2 (05:03→13:40)
[2019-03-15 05:25] LABS: ALT (SGPT) 20 U/L (8-55); AST (SGOT) 22 U/L (5-34); Alkaline Phosphatase 89 U/L (40-150); Anion Gap 10 mmol/L (10-20); BUN (Urea Nitrogen) 11 mg/dL (8.4-25.7); Bilirubin, Total 2.5 mg/dL (0.2-1.2); Calc. Creatinine Clearance 147 mL/min (70-130); Calcium 8.3 mg/dL (7.8-10.44); Carbon Dioxide 22 mmol/L (22-29); Chloride 106 mmol/L (98-107); Estimated GFR-MDRD 84; Globulin 2.6 g/dL (2.4-3.5); Glucose 179 mg/dL (70-105); Magnesium 1.7 mg/dL (1.6-2.6); Potassium 3.2 mmol/L (3.5-5.1); Protein, Total 5.6 g/dL (6.0-8.3); Sodium 135 mmol/L (136-145)
[2019-03-15 05:53] LABS: Band 6 % (5-11); Eosinophils 2 % (0-10); Hemoglobin 12.7 g/dL (14.0-18.0); Lymphocytes 17 % (21-51); MDiff Complete? YES; Mean Corpuscular HGB CONC 34.5 g/dL (32.0-36.0); Mean Corpuscular Hemoglobin 30.6 pg (27.0-31.0); Mean Corpuscular Volume 88.9 fL (78.0-98.0); Mean Platelet Volume 8.3 fL (7.4-10.4); Monocytes 10 % (0-10); Neutrophil 63 % (42-75); Platelet Count 80 thou/uL (130-400); Platelet Morphology Comment Appears Decreased; RBC Distribution Width 13.7 % (11.5-14.5); Reactive Lymphocytes 2 % (0-10); Red Blood Cell (RBC) Count 4.16 mill/uL (4.70-6.10)
[2019-03-15] MEDS: HumaLOG 300 UNITS/3 ML VIAL SC PRN ×3 (06:28→20:09)
[2019-03-15] MEDS: Potassium Chloride 10 MEQ TAB PO SCH (09:15)
[2019-03-15] MEDS: Insulin Glargine 15 UNITS in Pre-Filled Syringe 1 EACH SC SCH ×2 (09:16→16:27)
--- NOTE | 2019-03-15 15:31 | PDOC.PN ---
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 He denies any problems. Says he is voiding well. No pain. - Objective Resuscitation Status - Order Detail: 03/14/19 00:40 Resuscitation Status Routine Resuscitation Status: FULL: Full Resuscitation Vital Signs & Weight: Vital Signs (12 hours) Temp Pulse Resp BP Pulse Ox 03/15/19 11:46 98.3 F 69 18 127/71 95 03/15/19 08:00 96 03/15/19 07:57 98.7 F 70 20 121/55 L 96 03/15/19 04:51 98.3 F 68 20 125/75 Weight Weight 251 lb 9.6 oz I&O: 03/14/19 03/15/19 03/16/19 06:59 06:59 06:59 Intake Total 1550 Output Total 225 Balance 1325 Result Diagrams: 03/15/19 04:34 03/15/19 04:34 Additional Labs: Accuchecks 03/15/19 03/15/19 03/14/19 10:43 05:33 20:00 POC Glucose 284 H 180 H 233 H 03/14/19 15:33 POC Glucose 300 H Phys Exam - Physical Examination Constitutional: NAD Respiratory: no wheezing, no rales, no rhonchi Cardiovascular: RRR, no significant murmur Gastrointestinal: soft, non-tender, no distention Musculoskeletal: no edema, pulses present Neurological: non-focal, moves all 4 limbs Psychiatric: A&O x 3 Deviation from normal: Affect is a little flat. Dx/Plan (1) Sepsis Code(s): A41.9 - SEPSIS, UNSPECIFIED ORGANISM Status: Acute (2) UTI (urinary tract infection) Status: Acute (3) Alcohol dependence Code(s): F10.20 - ALCOHOL DEPENDENCE, UNCOMPLICATED Status: Acute (4) HTN (hypertension) Code(s): I10 - ESSENTIAL (PRIMARY) HYPERTENSION Status: Acute (5) Hepatic cirrhosis Code(s): K74.60 - UNSPECIFIED CIRRHOSIS OF LIVER Status: Chronic Qualifiers: Hepatic cirrhosis type: alcoholic cirrhosis Comment: Medical mgmt as outpt, GI follow up - Plan * Doing ok overall. He does not have urinary obstructive symptoms. * Has low colony counts of Citrobacter and even lower counts of another GNR. * Will continue IV abx today given his chronic liver disease. Anticipate discharge in the am on po abx. * No evidence of withdrawal.
[2019-03-15] MEDS: cefTRIAXone\\ROCEPHIN 2 GM in Sodium Chloride 0.9% 100 ML IVPB SCH (20:09)
[2019-03-16 04:30] LABS: Vancomycin, Trough 12.1 ug/mL
[2019-03-16] MEDS: Vancomycin HCl 1.75 GM in Sodium Chloride 0.9% 500 ML IVPB SCH (05:07)
[2019-03-16] MEDS: HumaLOG 300 UNITS/3 ML VIAL SC PRN ×3 (06:09→16:17)
[2019-03-16] MEDS: Insulin Glargine 15 UNITS in Pre-Filled Syringe 1 EACH SC SCH ×2 (08:08→16:17)
[2019-03-16] MEDS: NS 0.9% w/ 40 MEQ KCL 1,000 ML IV SCH (11:09)
[2019-03-16 15:55] VITALS: BP 151/87; TEMP 98.4
--- NOTE | 2019-03-17 00:29 | DIS ---
DATE OF ADMISSION: 03/13/2019 DATE OF DISCHARGE: 03/16/2019 DISCHARGE DIAGNOSES: 1. Sepsis secondary to urinary tract infection. 2. Urinary tract infection. 3. Hypokalemia. 4. Hyponatremia. 5. Diabetes mellitus. 6. History of alcoholic cirrhosis. 7. History of portal hypertensive gastropathy, status post TIPS procedure. 8. History of hypertension. 9. History of esophageal varices. 10. Chronic kidney disease stage 2. HISTORY: The patient is a 54-year-old male, with the above-mentioned history of severe liver disease secondary to alcohol. The patient also has diabetes. He presented to the emergency department complaining of generalized weakness, fever , headaches, and dysuria. He had a temperature of 102. He has had a CT scan in the ER, which showed some mucosal thickening of the urinary bladder. Urinalysis was positive. The patient had various electrolyte abnormalities as listed above. HOSPITAL COURSE: The patient was admitted to the hospital and he was started on IV fluids, IV antibiotics, and antipyretics. Ultimately, his urine culture grew Citrobacter with relatively low colony count at 25,000 to 50,000. It was sensitive to everything but cefoxitin. He also had a second gram-negative bess growing, but it was less than 10,000 CFUs. The patient's vital signs stabilized. He felt better, had no complaints, no pain, was voiding adequately and was therefore felt to be stable to transition over to p.o. antibiotics. The patient's blood sugars remained highly variable throughout his hospitalization. His electrolytes normalized adequately. DISPOSITION: VITAL SIGNS: On the day of discharge, temperature is 98.4, pulse 63, respirations 20, O2 saturation 96% on room air, BP 130/70 to 151/87. GENERAL APPEARANCE: Age-appropriate male, in no distress. He is awake and alert. HEART: Regular rate and rhythm. LUNGS: Clear to auscultation bilaterally. ABDOMEN: Soft, nontender, and nondistended. Positive bowel sounds. EXTREMITIES: No edema. DISPOSITION: The patient will be discharged to home. ACTIVITY: As tolerated. He is recommended to avoid extreme activity in excessive heat. DIET: He will be on a diabetic diet. DISCHARGE MEDICATIONS: He will continue his usual home medications includin. Protonix 40 mg daily. 2. Tylenol p.r.n. 3. Dulcolax p.r.n. 4. Ferrous fumarate 324 mg daily. 5. DuoNeb p.r.n. 6. Tramadol p.r.n. 7. He will also continue his stated home dose of Levemir 15 units subcu nightly and he will be on Cipro 500 mg one p.o. b.i.d. FOLLOWUP: He is to follow up with his primary care provider this coming week. He can return to the hospital should he have any problems prior to that time. Time spent in discharge activities, including face to face time with the patient , was 39 minutes. Job ID: [id number] [id number]
== END 2019-03-16 16:21 | disposition home or self-care (01) | DRG 872 ==
LOC: ERS 19:38 → SURG B 22:46
PROVIDERS: ADMIT Hospitalist; ATTEND Hospitalist
DX: A41.9 Sepsis, unspecified organism (principal); N39.0 Urinary tract infection, site not specified; E87.1 Hypo-osmolality and hyponatremia; F10.288 Alcohol dependence with other alcohol-induced disorder; K70.30 Alcoholic cirrhosis of liver without ascites; E87.6 Hypokalemia; E11.65 Type 2 diabetes mellitus with hyperglycemia; E87.70 Fluid overload, unspecified; D69.59 Other secondary thrombocytopenia; I12.9 Hypertensive chronic kidney disease with stage 1 through stage 4 chronic kidney disease, or unspecified chronic kidney disease; N18.2 Chronic kidney disease, stage 2 (mild); E11.22 Type 2 diabetes mellitus with diabetic chronic kidney disease; E83.42 Hypomagnesemia; E66.9 Obesity, unspecified; Z79.4 Long term (current) use of insulin; Z79.899 Other long term (current) drug therapy; Z68.38 Body mass index [BMI] 38.0-38.9, adult
CPT/HCPCS: 36415; 36416; 70450; 71045; 74176; 80048; 80053; 80202; 81003; 81015; 83605; 83690; 83735; 85025; 85610; 85730; 87040; 87077; 87086; 87186; 87804; 96361; 96365; 96366; 96367; 96375; J0696; J1650; J1815; J2270; J3370; J3475; J3480; J3490; J7050

== ENCOUNTER 2022-11-30 15:39 | Inpatient (IN) | payer MEDICAID, OTHER ==
[2022-11-30 17:19] LABS: #Lymphocytes 0.7 thou/uL (1.20-3.40); #Monocytes 0.4 thou/uL (0.11-0.59); #Neutrophils 8.2 thou/uL (1.40-6.50); %Eosinophils 0.2 % (0.0-10.0); %Lymphocytes 7.8 % (21.0-51.0); %Monocytes 4.1 % (0.0-10.0); %Neutrophils 87.9 % (42.0-75.0); Hemoglobin 15.6 g/dL (14.0-18.0); Mean Corpuscular HGB CONC 33.8 g/dL (32.0-36.0); Mean Corpuscular Hemoglobin 30.7 pg (27.0-31.0); Mean Corpuscular Volume 90.9 fl (78.0-98.0); Platelet Count 105 10x3/uL (130-400); RBC Distribution Width 13.6 % (11.5-14.5); Red Blood Cell (RBC) Count 5.08 mill/uL (4.70-6.10); White Blood Cell (WBC) Count 9.3 10x3/uL (4.8-10.8)
[2022-11-30 17:40] LABS: ALT (SGPT) 41 U/L (8-55); AST (SGOT) 18 U/L (5-34); Albumin 3.8 g/dL (3.5-5.0); Alkaline Phosphatase 101 U/L (40-110); Anion Gap 13 mmol/L (10-20); BUN (Urea Nitrogen) 29 mg/dL (8.4-25.7); Bilirubin, Total 0.7 mg/dL (0.2-1.2); Calc. Creatinine Clearance 0 mL/min (70-130); Calcium 9.2 mg/dL (7.8-10.44); Carbon Dioxide 20 mmol/L (22-29); Chloride 103 mmol/L (98-107); Estimated GFR 56; Globulin 2.7 g/dL (2.4-3.5); Glucose 382 mg/dL (70-105); Magnesium 2.4 mg/dL (1.6-2.6); Potassium 4.5 mmol/L (3.5-5.1); Protein, Total 6.5 g/dL (6.0-8.3); Sodium 131 mmol/L (136-145)
[2022-11-30 19:01] LABS: Phosphorus 3.2 mg/dL (2.3-4.7)
[2022-11-30] MEDS ORDERED: Calcium Carbonate 500 MG ChewTAB PO PRN (19:37)
[2022-11-30] MEDS ORDERED: Senokot S 8.6-50 MG TAB PO PRN (19:37)
[2022-11-30] MEDS ORDERED: Ondansetron PF 4 MG/2 ML Vial IVP PRN (19:37)
[2022-11-30] MEDS ORDERED: Dextrose 5% in Water 1,000 ML IV PRN (19:37)
[2022-11-30] MEDS ORDERED: hydrALAZINE 20 MG/ML VIAL SLOW IVP PRN (19:37)
[2022-11-30] MEDS ORDERED: Dextrose 50% Abboject 50 ML SYRINGE SLOW IVP PRN (19:37)
[2022-11-30] MEDS ORDERED: Ondansetron ODT 4 MG TAB PO PRN (19:37)
[2022-11-30] MEDS ORDERED: Aspirin 325 mg Enteric Coated Tablet PO SCH (19:45)
[2022-11-30 21:30] VITALS: BMI 36.8
[2022-11-30] MEDS: HumaLOG 300 UNITS/3 ML VIAL SC PRN (21:37)
[2022-11-30] MEDS: Atorvastatin Calcium 40 MG TAB PO SCH (21:38)
[2022-11-30] MEDS: Sodium Chloride 0.9% 1,000 ML IV SCH (21:38)
[2022-12-01 00:12] LABS: Troponin I Less than 0.010 ng/mL (< 0.028)
[2022-12-01 02:33] LABS: Troponin I Less than 0.010 ng/mL (< 0.028)
[2022-12-01 05:57] LABS: #Lymphocytes 0.8 thou/uL (1.20-3.40); #Monocytes 0.4 thou/uL (0.11-0.59); #Neutrophils 6.6 thou/uL (1.40-6.50); %Basophils 0.6 % (0.0-1.0); %Eosinophils 0.3 % (0.0-10.0); %Lymphocytes 10.4 % (21.0-51.0); %Monocytes 4.5 % (0.0-10.0); %Neutrophils 84.2 % (42.0-75.0); Hemoglobin 15.9 g/dL (14.0-18.0); Mean Corpuscular HGB CONC 34.1 g/dL (32.0-36.0); Mean Platelet Volume 9.1 fL (7.4-10.4); Platelet Count 103 10x3/uL (130-400); RBC Distribution Width 13.6 % (11.5-14.5); Red Blood Cell (RBC) Count 5.13 mill/uL (4.70-6.10); White Blood Cell (WBC) Count 7.9 10x3/uL (4.8-10.8)
[2022-12-01] MEDS: HumaLOG 300 UNITS/3 ML VIAL SC PRN ×4 (06:15→21:36)
[2022-12-01 06:17] LABS: Anion Gap 13 mmol/L (10-20); BUN (Urea Nitrogen) 28 mg/dL (8.4-25.7); Calc. Creatinine Clearance 102 mL/min (70-130); Calcium 9.1 mg/dL (7.8-10.44); Carbon Dioxide 20 mmol/L (22-29); Cardiac Risk 5.6 (Less than 4.5); Chloride 105 mmol/L (98-107); Cholesterol 152 mg/dl (< 200 Desired); Estimated GFR 68; Glucose 317 mg/dL (70-105); HDL Cholesterol 27 mg/dL (>60 Neg Risk); LDL Cholesterol, Calculated 91 mg/dL; Magnesium 2.2 mg/dL (1.6-2.6); Potassium 4.6 mmol/L (3.5-5.1); Sodium 133 mmol/L (136-145); Triglycerides 168 mg/dL (Less than 150)
[2022-12-01] MEDS: Sodium Chloride 0.9% 1,000 ML IV SCH ×2 (08:27→22:02)
[2022-12-01] MEDS: Aspirin 81 mg Enteric Coated Tablet PO SCH (08:27)
[2022-12-01] MEDS ORDERED: glipiZIDE 5 MG TAB PO SCH (18:30)
[2022-12-01] MEDS: Atorvastatin Calcium 40 MG TAB PO SCH (21:35)
[2022-12-01] MEDS: Acetaminophen 325 MG TAB PO PRN (21:35)
[2022-12-02 05:39] LABS: #Lymphocytes 0.8 thou/uL (1.20-3.40); #Monocytes 0.4 thou/uL (0.11-0.59); #Neutrophils 5.1 thou/uL (1.40-6.50); %Basophils 0.6 % (0.0-1.0); %Eosinophils 0.7 % (0.0-10.0); %Lymphocytes 13.1 % (21.0-51.0); %Monocytes 5.9 % (0.0-10.0); %Neutrophils 79.6 % (42.0-75.0); Hemoglobin 16.2 g/dL (14.0-18.0); Mean Corpuscular HGB CONC 34.2 g/dL (32.0-36.0); Mean Corpuscular Hemoglobin 31.1 pg (27.0-31.0); Mean Corpuscular Volume 90.8 fl (78.0-98.0); Mean Platelet Volume 8.9 fL (7.4-10.4); Platelet Count 97 10x3/uL (130-400); RBC Distribution Width 13.7 % (11.5-14.5); White Blood Cell (WBC) Count 6.3 10x3/uL (4.8-10.8)
[2022-12-02 05:55] LABS: Anion Gap 13 mmol/L (10-20); BUN (Urea Nitrogen) 28 mg/dL (8.4-25.7); Calc. Creatinine Clearance 105 mL/min (70-130); Calcium 9.1 mg/dL (7.8-10.44); Carbon Dioxide 21 mmol/L (22-29); Chloride 104 mmol/L (98-107); Estimated GFR 71; Glucose 278 mg/dL (70-105); Potassium 4.5 mmol/L (3.5-5.1); Sodium 133 mmol/L (136-145)
[2022-12-02] MEDS: HumaLOG 300 UNITS/3 ML VIAL SC PRN ×4 (05:58→22:39)
[2022-12-02] MEDS: glipiZIDE 5 MG TAB PO SCH ×2 (07:51→17:42)
[2022-12-02] MEDS: Aspirin 81 mg Enteric Coated Tablet PO SCH (08:11)
[2022-12-02] MEDS ORDERED: Non-Formulary Item 1 EACH (Insulin Detemir [Levemir] 100 UNIT/ML Vial) SQ SCH (09:00)
[2022-12-02] MEDS ORDERED: Insulin Glargine 30 UNITS/0.3 ML VIAL SC SCH (09:00)
[2022-12-02] MEDS: Sodium Chloride 0.9% 1,000 ML IV SCH ×2 (11:09→22:37)
[2022-12-02] MEDS: Losartan 25 MG TAB PO SCH (20:52)
[2022-12-02] MEDS: Atorvastatin Calcium 40 MG TAB PO SCH (20:52)
[2022-12-02] MEDS ORDERED: Non-Formulary Item 1 EACH (Levemir Flexpen [Levemir Flexpen] 100 UNITS/ML Pen) SC SCH (21:00)
[2022-12-03 06:00] LABS: #Lymphocytes 1.1 thou/uL (1.20-3.40); #Monocytes 0.4 thou/uL (0.11-0.59); #Neutrophils 4.7 thou/uL (1.40-6.50); %Eosinophils 0.6 % (0.0-10.0); %Lymphocytes 17.6 % (21.0-51.0); %Monocytes 6.6 % (0.0-10.0); %Neutrophils 75.2 % (42.0-75.0); Hemoglobin 16.6 g/dL (14.0-18.0); Mean Corpuscular HGB CONC 34.1 g/dL (32.0-36.0); Mean Platelet Volume 9.3 fL (7.4-10.4); Platelet Count 95 10x3/uL (130-400); RBC Distribution Width 13.8 % (11.5-14.5); Red Blood Cell (RBC) Count 5.34 mill/uL (4.70-6.10); White Blood Cell (WBC) Count 6.2 10x3/uL (4.8-10.8)
[2022-12-03 06:14] LABS: Anion Gap 12 mmol/L (10-20); BUN (Urea Nitrogen) 25 mg/dL (8.4-25.7); Calc. Creatinine Clearance 112 mL/min (70-130); Calcium 9.3 mg/dL (7.8-10.44); Carbon Dioxide 23 mmol/L (22-29); Chloride 104 mmol/L (98-107); Estimated GFR 76; Glucose 251 mg/dL (70-105); Potassium 4.5 mmol/L (3.5-5.1); Sodium 134 mmol/L (136-145)
[2022-12-03] MEDS: HumaLOG 300 UNITS/3 ML VIAL SC PRN ×4 (06:19→21:48)
[2022-12-03] MEDS: glipiZIDE 5 MG TAB PO SCH ×2 (07:42→18:01)
[2022-12-03] MEDS: Aspirin 81 mg Enteric Coated Tablet PO SCH (08:38)
[2022-12-03] MEDS: Losartan 25 MG TAB PO SCH ×2 (08:38→19:46)
[2022-12-03] MEDS ORDERED: Insulin Glargine 30 UNITS/0.3 ML VIAL SC SCH (09:00)
[2022-12-03] MEDS: Sodium Chloride 0.9% 1,000 ML IV SCH (14:30)
[2022-12-03] MEDS: Atorvastatin Calcium 40 MG TAB PO SCH (19:46)
[2022-12-03] MEDS ORDERED: FLU VACC QS2022-23(6MO UP)/PF 60 MCG/0.5 ML SYRINGE IM ONE (22:45)
[2022-12-04 04:52] LABS: #Basophils 0.1 thou/uL (0.0-0.2); #Eosinphils 0.1 thou/uL (0.0-0.7); #Lymphocytes 0.9 thou/uL (1.20-3.40); #Monocytes 0.6 thou/uL (0.11-0.59); #Neutrophils 5.7 thou/uL (1.40-6.50); %Basophils 1.3 % (0.0-1.0); %Eosinophils 0.8 % (0.0-10.0); %Lymphocytes 12.2 % (21.0-51.0); %Monocytes 7.5 % (0.0-10.0); %Neutrophils 78.3 % (42.0-75.0); Hemoglobin 16.5 g/dL (14.0-18.0); Mean Corpuscular Hemoglobin 29.9 pg (27.0-31.0); Mean Corpuscular Volume 90.8 fl (78.0-98.0); Mean Platelet Volume 8.6 fL (7.4-10.4); Platelet Count 98 10x3/uL (130-400); RBC Distribution Width 13.8 % (11.5-14.5); White Blood Cell (WBC) Count 7.3 10x3/uL (4.8-10.8)
[2022-12-04 05:09] LABS: Anion Gap 14 mmol/L (10-20); BUN (Urea Nitrogen) 25 mg/dL (8.4-25.7); Calc. Creatinine Clearance 113 mL/min (70-130); Calcium 9.7 mg/dL (7.8-10.44); Carbon Dioxide 23 mmol/L (22-29); Chloride 103 mmol/L (98-107); Estimated GFR 77; Glucose 246 mg/dL (70-105); Potassium 4.6 mmol/L (3.5-5.1); Sodium 135 mmol/L (136-145)
[2022-12-04] MEDS: HumaLOG 300 UNITS/3 ML VIAL SC PRN ×3 (05:33→17:10)
[2022-12-04] MEDS: glipiZIDE 5 MG TAB PO SCH ×2 (07:44→17:10)
[2022-12-04] MEDS: Insulin Glargine 30 UNITS/0.3 ML VIAL SC SCH (08:49)
[2022-12-04] MEDS: Losartan 25 MG TAB PO SCH ×2 (08:49→21:30)
[2022-12-04] MEDS: Aspirin 81 mg Enteric Coated Tablet PO SCH (08:49)
[2022-12-04] MEDS: Atorvastatin Calcium 40 MG TAB PO SCH (21:30)
[2022-12-05 05:34] LABS: Anion Gap 11 mmol/L (10-20); BUN (Urea Nitrogen) 31 mg/dL (8.4-25.7); Calc. Creatinine Clearance 108 mL/min (70-130); Calcium 9.8 mg/dL (7.8-10.44); Carbon Dioxide 24 mmol/L (22-29); Chloride 105 mmol/L (98-107); Estimated GFR 73; Glucose 297 mg/dL (70-105); Potassium 4.8 mmol/L (3.5-5.1); Sodium 135 mmol/L (136-145)
[2022-12-05 05:35] LABS: PTT 29.6 sec (22.9-36.1)
[2022-12-05 06:08] LABS: Hemoglobin 16.5 g/dL (14.0-18.0); Mean Corpuscular HGB CONC 30.8 g/dL (32.0-36.0); Mean Corpuscular Hemoglobin 28.5 pg (27.0-31.0); Mean Corpuscular Volume 92.4 fl (78.0-98.0); Mean Platelet Volume 9.1 fL (7.4-10.4); Platelet Count 113 10x3/uL (130-400); White Blood Cell (WBC) Count 8.2 10x3/uL (4.8-10.8)
[2022-12-05 06:09] LABS: INR-International Normal Ratio 1.2; Prothrombin Time 15.7 sec (12.0-14.7)
[2022-12-05 06:30] LABS: Band 2 % (5-11); Lymphocytes 10 % (21-51); MDiff Complete? YES; Monocytes 15 % (0-10); Neutrophil 72 % (42-75); Platelet Morphology Comment Appears Decreased; Reactive Lymphocytes 1 % (0-10)
[2022-12-05] MEDS: Losartan 25 MG TAB PO SCH ×2 (08:23→22:15)
[2022-12-05] MEDS: glipiZIDE 5 MG TAB PO SCH ×2 (09:18→16:50)
[2022-12-05] MEDS: Insulin Glargine 30 UNITS/0.3 ML VIAL SC SCH (09:18)
[2022-12-05] MEDS ORDERED: Thrombin 5000 UNITS/5 ML VIAL ONE (11:12)
[2022-12-05] MEDS ORDERED: CEFAZOLIN 2 GM VIAL ONE (11:49)
[2022-12-05] MEDS ORDERED: Sodium Chloride 0.9% 100 ML ONE (11:49)
[2022-12-05] MEDS ORDERED: Fentanyl 250 MCG/5 ML VIAL ONE (12:22)
[2022-12-05] MEDS ORDERED: Rocuronium Bromide 10 MG/ML (10ML VIAL) ONE (12:30)
[2022-12-05] MEDS ORDERED: PROPOFOL 200 MG/20 ML VIAL ONE (12:30)
[2022-12-05] MEDS ORDERED: Phenylephrine 10 MG/ML VIAL ONE ×2 (12:30→13:07)
[2022-12-05] MEDS ORDERED: Ondansetron PF 4 MG/2 ML Vial ONE (12:30)
[2022-12-05] MEDS ORDERED: ePHEDrine 50 MG/ML VIAL ONE (12:30)
[2022-12-05] MEDS ORDERED: Lidocaine 1% PF 5 ML VIAL ONE (12:30)
[2022-12-05] MEDS ORDERED: GLYCOPYRROLATE/PF 0.2 MG/ML VIAL ONE (12:30)
[2022-12-05] MEDS ORDERED: NEOSTIGMINE 3 MG/3 ML SYR 3 MG/3 ML SYRINGE ONE (12:30)
[2022-12-05] MEDS ORDERED: Promethazine HCl 25 MG/ML VIAL IM PRN (14:44)
[2022-12-05] MEDS ORDERED: HYDROmorphone 2 MG/ML VIAL SLOW IVP PRN (14:44)
[2022-12-05] MEDS ORDERED: Ondansetron HCl/PF 4 MG/2 ML Vial IVP PRN (14:44)
[2022-12-05] MEDS ORDERED: Acetaminophen/Codeine 30-300mg Tablet PO PRN (15:15)
[2022-12-05] MEDS ORDERED: diphenhydrAMINE 25 MG CAP PO PRN (15:15)
[2022-12-05] MEDS ORDERED: fentaNYL 50 mcg/mL 1 mL Vial ONE (16:03)
[2022-12-05] MEDS: HYDROcodone/Acetaminophen 7.5/325 mg Tablet PO PRN ×2 (16:50→22:15)
[2022-12-05] MEDS: Sodium Chloride 0.9% 1,000 ML IV SCH (16:50)
[2022-12-05] MEDS: Morphine 2 MG/ML VIAL SLOW IVP PRN ×3 (18:09→23:49)
[2022-12-05] MEDS: CEFAZOLIN 2 GM in Sodium Chloride 0.9% 100 ML IVPB SCH (20:44)
[2022-12-05] MEDS: Atorvastatin Calcium 40 MG TAB PO SCH (22:15)
[2022-12-05] MEDS: tiZANidine HCl 4 MG TAB PO PRN (22:16)
[2022-12-06] MEDS: CEFAZOLIN 2 GM in Sodium Chloride 0.9% 100 ML IVPB SCH ×3 (04:27→20:17)
[2022-12-06] MEDS: Morphine 2 MG/ML VIAL SLOW IVP PRN ×2 (04:28→20:17)
[2022-12-06] MEDS: Acetaminophen 325 MG TAB PO PRN (06:24)
[2022-12-06] MEDS: HumaLOG 300 UNITS/3 ML VIAL SC PRN ×3 (06:25→16:36)
[2022-12-06] MEDS: Sodium Chloride 0.9% 1,000 ML IV SCH ×2 (06:27→16:40)
[2022-12-06 06:44] LABS: #Lymphocytes 1.3 thou/uL (1.20-3.40); #Neutrophils 13.8 thou/uL (1.40-6.50); %Basophils 0.1 % (0.0-1.0); %Eosinophils 0.3 % (0.0-10.0); %Lymphocytes 8.1 % (21.0-51.0); %Monocytes 6.1 % (0.0-10.0); %Neutrophils 85.4 % (42.0-75.0); Hemoglobin 16.4 g/dL (14.0-18.0); Mean Corpuscular Hemoglobin 30.6 pg (27.0-31.0); Mean Corpuscular Volume 92.7 fl (78.0-98.0); Mean Platelet Volume 8.7 fL (7.4-10.4); Platelet Count 112 10x3/uL (130-400); RBC Distribution Width 14.1 % (11.5-14.5); Red Blood Cell (RBC) Count 5.36 mill/uL (4.70-6.10); White Blood Cell (WBC) Count 16.1 10x3/uL (4.8-10.8)
[2022-12-06 07:02] LABS: Anion Gap 12 mmol/L (10-20); BUN (Urea Nitrogen) 37 mg/dL (8.4-25.7); Calc. Creatinine Clearance 92 mL/min (70-130); Calcium 8.9 mg/dL (7.8-10.44); Carbon Dioxide 24 mmol/L (22-29); Chloride 103 mmol/L (98-107); Estimated GFR 60; Glucose 194 mg/dL (70-105); Potassium 4.8 mmol/L (3.5-5.1); Sodium 134 mmol/L (136-145)
[2022-12-06] MEDS: Insulin Glargine 30 UNITS/0.3 ML VIAL SC SCH (07:56)
[2022-12-06] MEDS: glipiZIDE 5 MG TAB PO SCH ×2 (07:57→16:37)
[2022-12-06] MEDS: traMADol HCl 50 MG TAB PO PRN ×2 (08:59→16:36)
[2022-12-06] MEDS: Losartan 25 MG TAB PO SCH ×2 (09:07→20:18)
[2022-12-06] MEDS: tiZANidine HCl 4 MG TAB PO PRN (16:37)
[2022-12-06] MEDS: Atorvastatin Calcium 40 MG TAB PO SCH (20:18)
[2022-12-07] MEDS: Benzonatate 100 MG CAP PO PRN ×2 (01:01→08:21)
[2022-12-07] MEDS: GUAIFENESIN SF SOLN 200 MG/10 ML UDCUP PO PRN ×3 (01:01→21:01)
[2022-12-07] MEDS: CEFAZOLIN 2 GM in Sodium Chloride 0.9% 100 ML IVPB SCH ×3 (04:57→21:01)
[2022-12-07] MEDS: Acetaminophen 325 MG TAB PO PRN (05:34)
[2022-12-07] MEDS: Sodium Chloride 0.9% 1,000 ML IV SCH ×2 (05:35→21:01)
[2022-12-07] MEDS: HYDROcodone/Acetaminophen 7.5/325 mg Tablet PO PRN (08:21)
[2022-12-07] MEDS: glipiZIDE 5 MG TAB PO SCH ×2 (08:22→17:42)
[2022-12-07] MEDS: Losartan 25 MG TAB PO SCH ×2 (08:22→21:01)
[2022-12-07] MEDS: Insulin Glargine 30 UNITS/0.3 ML VIAL SC SCH (08:22)
[2022-12-07 09:56] LABS: Hemoglobin 16.6 g/dL (14.0-18.0); Mean Corpuscular HGB CONC 31.2 g/dL (32.0-36.0); Mean Corpuscular Hemoglobin 28.8 pg (27.0-31.0); Mean Corpuscular Volume 92.2 fl (78.0-98.0); Mean Platelet Volume 8.8 fL (7.4-10.4); Platelet Count 102 10x3/uL (130-400); RBC Distribution Width 14.1 % (11.5-14.5); Red Blood Cell (RBC) Count 5.78 mill/uL (4.70-6.10); White Blood Cell (WBC) Count 11.8 10x3/uL (4.8-10.8)
[2022-12-07 10:33] LABS: Anion Gap 14 mmol/L (10-20); BUN (Urea Nitrogen) 31 mg/dL (8.4-25.7); Calc. Creatinine Clearance 109 mL/min (70-130); Calcium 9.1 mg/dL (7.8-10.44); Carbon Dioxide 21 mmol/L (22-29); Chloride 103 mmol/L (98-107); Estimated GFR 73; Glucose 253 mg/dL (70-105); Potassium 4.6 mmol/L (3.5-5.1); Sodium 133 mmol/L (136-145)
[2022-12-07] MEDS: HumaLOG 300 UNITS/3 ML VIAL SC PRN (11:52)
[2022-12-07] MEDS ORDERED: Diazepam 5 MG TAB PO PRN (12:01)
[2022-12-07] MEDS ORDERED: Ketorolac Tromethamine 30 MG/ML VIAL IVP PRN (12:01)
[2022-12-07] MEDS: Morphine 2 MG/ML VIAL SLOW IVP PRN ×2 (13:29→21:58)
[2022-12-07] MEDS: Atorvastatin Calcium 40 MG TAB PO SCH (21:01)
[2022-12-08] MEDS: CEFAZOLIN 2 GM in Sodium Chloride 0.9% 100 ML IVPB SCH ×3 (04:45→20:05)
[2022-12-08] MEDS: Morphine 2 MG/ML VIAL SLOW IVP PRN ×2 (05:05→10:28)
[2022-12-08 06:55] LABS: Anion Gap 15 mmol/L (10-20); BUN (Urea Nitrogen) 29 mg/dL (8.4-25.7); Calc. Creatinine Clearance 123 mL/min (70-130); Calcium 9.2 mg/dL (7.8-10.44); Carbon Dioxide 22 mmol/L (22-29); Chloride 103 mmol/L (98-107); Estimated GFR 85; Glucose 200 mg/dL (70-105); Potassium 4.9 mmol/L (3.5-5.1); Sodium 135 mmol/L (136-145)
[2022-12-08 06:57] LABS: #Lymphocytes 0.9 thou/uL (1.20-3.40); #Monocytes 0.9 thou/uL (0.11-0.59); #Neutrophils 8.8 thou/uL (1.40-6.50); %Basophils 0.1 % (0.0-1.0); %Eosinophils 0.2 % (0.0-10.0); %Lymphocytes 8.6 % (21.0-51.0); %Monocytes 8.5 % (0.0-10.0); %Neutrophils 82.7 % (42.0-75.0); Hemoglobin 16.6 g/dL (14.0-18.0); Mean Corpuscular HGB CONC 33.5 g/dL (32.0-36.0); Mean Corpuscular Hemoglobin 30.8 pg (27.0-31.0); Mean Corpuscular Volume 91.9 fl (78.0-98.0); Mean Platelet Volume 8.9 fL (7.4-10.4); Platelet Count 87 10x3/uL (130-400); RBC Distribution Width 13.7 % (11.5-14.5); Red Blood Cell (RBC) Count 5.38 mill/uL (4.70-6.10); White Blood Cell (WBC) Count 10.6 10x3/uL (4.8-10.8)
[2022-12-08] MEDS: Insulin Glargine 30 UNITS/0.3 ML VIAL SC SCH (08:18)
[2022-12-08] MEDS: glipiZIDE 5 MG TAB PO SCH ×2 (08:18→15:36)
[2022-12-08] MEDS: Sodium Chloride 0.9% 1,000 ML IV SCH ×2 (10:31→23:57)
[2022-12-08] MEDS: Losartan 25 MG TAB PO SCH ×2 (10:50→20:09)
[2022-12-08] MEDS ORDERED: Dexamethasone 4 mg/ml Vial SLOW IVP SCH (11:45)
[2022-12-08] MEDS ORDERED: Pantoprazole 40 MG VIAL IVP SCH (11:45)
[2022-12-08] MEDS: Dexamethasone 4 mg/ml Vial SLOW IVP SCH (17:38)
[2022-12-08] MEDS: HumaLOG 300 UNITS/3 ML VIAL SC PRN (17:41)
[2022-12-08] MEDS: Atorvastatin Calcium 40 MG TAB PO SCH (20:08)
[2022-12-08] MEDS: GUAIFENESIN SF SOLN 200 MG/10 ML UDCUP PO PRN (21:35)
[2022-12-09] MEDS: Dexamethasone 4 mg/ml Vial SLOW IVP SCH ×2 (00:17→06:26)
[2022-12-09] MEDS: HumaLOG 300 UNITS/3 ML VIAL SC PRN ×4 (00:21→22:00)
[2022-12-09] MEDS: CEFAZOLIN 2 GM in Sodium Chloride 0.9% 100 ML IVPB SCH ×2 (04:02→09:59)
[2022-12-09] MEDS: glipiZIDE 5 MG TAB PO SCH ×2 (08:30→13:34)
[2022-12-09] MEDS: Losartan 25 MG TAB PO SCH ×2 (08:30→21:07)
[2022-12-09] MEDS: Pantoprazole 40 MG VIAL IVP SCH (09:24)
[2022-12-09] MEDS: Insulin Glargine 30 UNITS/0.3 ML VIAL SC SCH (09:26)
[2022-12-09] MEDS: Sodium Chloride 0.9% 1,000 ML IV SCH (13:30)
[2022-12-09] MEDS ORDERED: Amino Acids 4.25 %/Dextrose 5% 2,000 ML IV SCH (14:00)
[2022-12-09] MEDS: Amino Acids 4.25 %/Dextrose 5% 1,000 ML IV SCH (15:00)
[2022-12-09 15:46] LABS: #Basophils 0.1 thou/uL (0.0-0.2); #Lymphocytes 0.8 thou/uL (1.20-3.40); #Monocytes 0.3 thou/uL (0.11-0.59); #Neutrophils 6.5 thou/uL (1.40-6.50); %Basophils 1.2 % (0.0-1.0); %Eosinophils 0.1 % (0.0-10.0); %Lymphocytes 10.9 % (21.0-51.0); %Monocytes 4.2 % (0.0-10.0); %Neutrophils 83.6 % (42.0-75.0); Hemoglobin 15.5 g/dL (14.0-18.0); Mean Corpuscular HGB CONC 33.1 g/dL (32.0-36.0); Mean Corpuscular Hemoglobin 30.5 pg (27.0-31.0); Mean Corpuscular Volume 92.3 fl (78.0-98.0); Mean Platelet Volume 8.9 fL (7.4-10.4); Platelet Count 98 10x3/uL (130-400); RBC Distribution Width 13.5 % (11.5-14.5); Red Blood Cell (RBC) Count 5.09 mill/uL (4.70-6.10); White Blood Cell (WBC) Count 7.7 10x3/uL (4.8-10.8)
[2022-12-09 16:05] LABS: Anion Gap 12 mmol/L (10-20); BUN (Urea Nitrogen) 39 mg/dL (8.4-25.7); Calc. Creatinine Clearance 130 mL/min (70-130); Carbon Dioxide 21 mmol/L (22-29); Chloride 111 mmol/L (98-107); Potassium 4.8 mmol/L (3.5-5.1); Sodium 139 mmol/L (136-145)
[2022-12-09 16:06] LABS: ALT (SGPT) 19 U/L (8-55); AST (SGOT) 15 U/L (5-34); Albumin 3.2 g/dL (3.5-5.0); Alkaline Phosphatase 73 U/L (40-110); Bilirubin, Total 1.1 mg/dL (0.2-1.2); Calcium 8.9 mg/dL (7.8-10.44); Estimated GFR 91; Globulin 2.9 g/dL (2.4-3.5); Glucose 265 mg/dL (70-105); Magnesium 2.6 mg/dL (1.6-2.6); Protein, Total 6.1 g/dL (6.0-8.3)
[2022-12-09] MEDS: GUAIFENESIN SF SOLN 200 MG/10 ML UDCUP PO PRN (21:01)
[2022-12-09] MEDS: Atorvastatin Calcium 40 MG TAB PO SCH (21:07)
[2022-12-10] MEDS: GUAIFENESIN SF SOLN 200 MG/10 ML UDCUP PO PRN ×2 (02:39→12:57)
[2022-12-10] MEDS: Amino Acids 4.25 %/Dextrose 5% 1,000 ML IV SCH ×2 (03:06→16:45)
[2022-12-10] MEDS: HumaLOG 300 UNITS/3 ML VIAL SC PRN ×2 (06:56→12:56)
[2022-12-10 07:29] LABS: #Lymphocytes 0.8 thou/uL (1.20-3.40); #Monocytes 0.5 thou/uL (0.11-0.59); #Neutrophils 6.4 thou/uL (1.40-6.50); %Basophils 0.3 % (0.0-1.0); %Lymphocytes 10.8 % (21.0-51.0); %Monocytes 6.6 % (0.0-10.0); %Neutrophils 82.4 % (42.0-75.0); Hemoglobin 16.1 g/dL (14.0-18.0); Mean Corpuscular HGB CONC 34.4 g/dL (32.0-36.0); Mean Corpuscular Hemoglobin 31.9 pg (27.0-31.0); Mean Corpuscular Volume 92.7 fl (78.0-98.0); Mean Platelet Volume 9.2 fL (7.4-10.4); Platelet Count 107 10x3/uL (130-400); RBC Distribution Width 13.3 % (11.5-14.5); Red Blood Cell (RBC) Count 5.05 mill/uL (4.70-6.10); White Blood Cell (WBC) Count 7.7 10x3/uL (4.8-10.8)
[2022-12-10 07:32] LABS: Anion Gap 12 mmol/L (10-20); BUN (Urea Nitrogen) 45 mg/dL (8.4-25.7); Calc. Creatinine Clearance 123 mL/min (70-130); Calcium 9.2 mg/dL (7.8-10.44); Carbon Dioxide 23 mmol/L (22-29); Chloride 108 mmol/L (98-107); Estimated GFR 85; Glucose 274 mg/dL (70-105); Magnesium 2.6 mg/dL (1.6-2.6); Potassium 4.5 mmol/L (3.5-5.1); Sodium 138 mmol/L (136-145)
[2022-12-10] MEDS: glipiZIDE 5 MG TAB PO SCH ×2 (08:00→14:47)
[2022-12-10] MEDS: Losartan 25 MG TAB PO SCH ×2 (08:00→20:02)
[2022-12-10] MEDS: Pantoprazole 40 MG VIAL IVP SCH (08:40)
[2022-12-10] MEDS: Insulin Glargine 30 UNITS/0.3 ML VIAL SC SCH (08:40)
[2022-12-10 11:18] LABS: INR-International Normal Ratio 1.2; Prothrombin Time 16.1 sec (12.0-14.7)
[2022-12-10 11:19] LABS: PTT 28.6 sec (22.9-36.1)
[2022-12-10 11:26] LABS: Troponin I Less than 0.010 ng/mL (< 0.028)
[2022-12-10 17:26] LABS: Troponin I 0.012 ng/mL (< 0.028)
[2022-12-10] MEDS: Atorvastatin Calcium 40 MG TAB PO SCH (20:02)
[2022-12-11] MEDS: Amino Acids 4.25 %/Dextrose 5% 1,000 ML IV SCH (05:16)
[2022-12-11 05:23] LABS: Anion Gap 12 mmol/L (10-20); BUN (Urea Nitrogen) 42 mg/dL (8.4-25.7); Calc. Creatinine Clearance 145 mL/min (70-130); Calcium 9.2 mg/dL (7.8-10.44); Carbon Dioxide 21 mmol/L (22-29); Chloride 108 mmol/L (98-107); Estimated GFR 101; Glucose 216 mg/dL (70-105); Magnesium 2.3 mg/dL (1.6-2.6); Potassium 4.5 mmol/L (3.5-5.1); Sodium 136 mmol/L (136-145)
[2022-12-11 05:28] LABS: Troponin I Less than 0.010 ng/mL (< 0.028)
[2022-12-11 05:41] LABS: #Lymphocytes 1.1 thou/uL (1.20-3.40); #Monocytes 0.6 thou/uL (0.11-0.59); #Neutrophils 4.7 thou/uL (1.40-6.50); %Basophils 0.5 % (0.0-1.0); %Eosinophils 0.3 % (0.0-10.0); %Lymphocytes 17.1 % (21.0-51.0); %Monocytes 8.7 % (0.0-10.0); %Neutrophils 73.4 % (42.0-75.0); Hemoglobin 16.1 g/dL (14.0-18.0); Mean Corpuscular HGB CONC 32.5 g/dL (32.0-36.0); Mean Corpuscular Hemoglobin 30.1 pg (27.0-31.0); Mean Corpuscular Volume 92.7 fl (78.0-98.0); Platelet Count 103 10x3/uL (130-400); RBC Distribution Width 13.4 % (11.5-14.5); Red Blood Cell (RBC) Count 5.35 mill/uL (4.70-6.10); White Blood Cell (WBC) Count 6.4 10x3/uL (4.8-10.8)
[2022-12-11] MEDS: Pantoprazole 40 MG VIAL IVP SCH (08:03)
[2022-12-11] MEDS: Insulin Glargine 30 UNITS/0.3 ML VIAL SC SCH (08:03)
[2022-12-11] MEDS: Losartan 25 MG TAB PO SCH (08:04)
[2022-12-11] MEDS: glipiZIDE 5 MG TAB PO SCH (08:04)
[2022-12-11] MEDS ORDERED: Regadenoson 0.4 MG/5 ML SYRINGE ONE (09:28)
[2022-12-11] MEDS: Scopolamine 1.5 mg/72 hour Patch TD SCH (15:59)
[2022-12-11] MEDS: HumaLOG 300 UNITS/3 ML VIAL SC PRN (17:51)
[2022-12-12 06:22] LABS: #Basophils 0.1 thou/uL (0.0-0.2); #Eosinphils 0.1 thou/uL (0.0-0.7); #Lymphocytes 1.1 thou/uL (1.20-3.40); #Monocytes 0.7 thou/uL (0.11-0.59); #Neutrophils 6.5 thou/uL (1.40-6.50); %Basophils 1.1 % (0.0-1.0); %Eosinophils 0.6 % (0.0-10.0); %Lymphocytes 13.6 % (21.0-51.0); %Monocytes 7.9 % (0.0-10.0); %Neutrophils 76.9 % (42.0-75.0); Mean Corpuscular HGB CONC 33.6 g/dL (32.0-36.0); Mean Corpuscular Hemoglobin 30.7 pg (27.0-31.0); Mean Corpuscular Volume 91.4 fl (78.0-98.0); Mean Platelet Volume 9.1 fL (7.4-10.4); Platelet Count 112 10x3/uL (130-400); RBC Distribution Width 13.4 % (11.5-14.5); Red Blood Cell (RBC) Count 5.54 mill/uL (4.70-6.10); White Blood Cell (WBC) Count 8.4 10x3/uL (4.8-10.8)
[2022-12-12 06:35] LABS: Anion Gap 8 mmol/L (10-20); BUN (Urea Nitrogen) 36 mg/dL (8.4-25.7); Calc. Creatinine Clearance 139 mL/min (70-130); Calcium 9.4 mg/dL (7.8-10.44); Carbon Dioxide 25 mmol/L (22-29); Chloride 106 mmol/L (98-107); Estimated GFR 98; Glucose 182 mg/dL (70-105); Magnesium 2.1 mg/dL (1.6-2.6); Potassium 4.3 mmol/L (3.5-5.1); Sodium 135 mmol/L (136-145)
[2022-12-12] MEDS: Insulin Glargine 30 UNITS/0.3 ML VIAL SC SCH (11:21)
[2022-12-12] MEDS: Amino Acids 4.25 %/Dextrose 5% 1,000 ML IV SCH (11:21)
[2022-12-12] MEDS: Pantoprazole 40 MG VIAL IVP SCH (11:21)
[2022-12-12] MEDS: HumaLOG 300 UNITS/3 ML VIAL SC PRN ×3 (14:03→21:33)
[2022-12-13 06:02] LABS: #Eosinphils 0.1 thou/uL (0.0-0.7); #Monocytes 0.5 thou/uL (0.11-0.59); #Neutrophils 6.8 thou/uL (1.40-6.50); %Basophils 0.3 % (0.0-1.0); %Eosinophils 1.4 % (0.0-10.0); %Lymphocytes 12.3 % (21.0-51.0); %Monocytes 5.7 % (0.0-10.0); %Neutrophils 80.3 % (42.0-75.0); Hemoglobin 17.5 g/dL (14.0-18.0); Mean Corpuscular HGB CONC 32.1 g/dL (32.0-36.0); Mean Corpuscular Hemoglobin 29.5 pg (27.0-31.0); Mean Platelet Volume 8.8 fL (7.4-10.4); Platelet Count 111 10x3/uL (130-400); RBC Distribution Width 13.5 % (11.5-14.5); Red Blood Cell (RBC) Count 5.92 mill/uL (4.70-6.10); White Blood Cell (WBC) Count 8.5 10x3/uL (4.8-10.8)
[2022-12-13 06:22] LABS: Anion Gap 12 mmol/L (10-20); BUN (Urea Nitrogen) 33 mg/dL (8.4-25.7); Calc. Creatinine Clearance 144 mL/min (70-130); Calcium 9.5 mg/dL (7.8-10.44); Carbon Dioxide 24 mmol/L (22-29); Chloride 106 mmol/L (98-107); Estimated GFR 100; Glucose 162 mg/dL (70-105); Magnesium 2.2 mg/dL (1.6-2.6); Potassium 4.3 mmol/L (3.5-5.1); Sodium 138 mmol/L (136-145)
[2022-12-13] MEDS: Pantoprazole 40 MG VIAL IVP SCH (09:15)
[2022-12-13] MEDS: Insulin Glargine 30 UNITS/0.3 ML VIAL SC SCH (09:16)
[2022-12-13] MEDS: Amino Acids 4.25 %/Dextrose 5% 1,000 ML IV SCH ×2 (10:19→20:24)
[2022-12-13] MEDS: HumaLOG 300 UNITS/3 ML VIAL SC PRN ×3 (12:04→21:58)
[2022-12-14] MEDS: HumaLOG 300 UNITS/3 ML VIAL SC PRN ×3 (06:22→21:03)
[2022-12-14 08:13] LABS: Anion Gap 11 mmol/L (10-20); BUN (Urea Nitrogen) 35 mg/dL (8.4-25.7); Calc. Creatinine Clearance 147 mL/min (70-130); Calcium 8.9 mg/dL (7.8-10.44); Carbon Dioxide 22 mmol/L (22-29); Chloride 104 mmol/L (98-107); Estimated GFR 101; Glucose 202 mg/dL (70-105); Potassium 4.2 mmol/L (3.5-5.1); Sodium 133 mmol/L (136-145)
[2022-12-14] MEDS: Insulin Glargine 30 UNITS/0.3 ML VIAL SC SCH (08:29)
[2022-12-14] MEDS: Pantoprazole 40 MG VIAL IVP SCH (08:31)
[2022-12-14] MEDS: Amino Acids 4.25 %/Dextrose 5% 1,000 ML IV SCH ×2 (08:36→21:03)
[2022-12-14 08:37] LABS: #Basophils 0.1 thou/uL (0.0-0.2); #Eosinphils 0.1 thou/uL (0.0-0.7); #Monocytes 0.3 thou/uL (0.11-0.59); %Eosinophils 1.6 % (0.0-10.0); %Monocytes 2.9 % (0.0-10.0); %Neutrophils 84.5 % (42.0-75.0); Hemoglobin 16.7 g/dL (14.0-18.0); Mean Corpuscular HGB CONC 33.9 g/dL (32.0-36.0); Mean Corpuscular Hemoglobin 30.9 pg (27.0-31.0); Mean Corpuscular Volume 91.1 fl (78.0-98.0); Mean Platelet Volume 9.2 fL (7.4-10.4); Platelet Count 102 10x3/uL (130-400); RBC Distribution Width 13.7 % (11.5-14.5); Red Blood Cell (RBC) Count 5.42 mill/uL (4.70-6.10); White Blood Cell (WBC) Count 9.5 10x3/uL (4.8-10.8)
[2022-12-14] MEDS: Scopolamine 1.5 mg/72 hour Patch TD SCH (14:33)
[2022-12-15 06:01] LABS: #Basophils 0.1 thou/uL (0.0-0.2); #Eosinphils 0.2 thou/uL (0.0-0.7); #Monocytes 0.5 thou/uL (0.11-0.59); #Neutrophils 6.6 thou/uL (1.40-6.50); %Basophils 0.8 % (0.0-1.0); %Eosinophils 2.1 % (0.0-10.0); %Lymphocytes 11.9 % (21.0-51.0); %Monocytes 5.8 % (0.0-10.0); %Neutrophils 79.4 % (42.0-75.0); Hemoglobin 16.5 g/dL (14.0-18.0); Mean Corpuscular HGB CONC 31.6 g/dL (32.0-36.0); Mean Corpuscular Hemoglobin 29.5 pg (27.0-31.0); Mean Corpuscular Volume 93.4 fl (78.0-98.0); Mean Platelet Volume 11.3 fL (7.4-10.4); Platelet Count 85 10x3/uL (130-400); RBC Distribution Width 13.7 % (11.5-14.5); Red Blood Cell (RBC) Count 5.59 mill/uL (4.70-6.10); White Blood Cell (WBC) Count 8.3 10x3/uL (4.8-10.8)
[2022-12-15 06:15] LABS: Anion Gap 10 mmol/L (10-20); BUN (Urea Nitrogen) 31 mg/dL (8.4-25.7); Calc. Creatinine Clearance 162 mL/min (70-130); Calcium 8.7 mg/dL (7.8-10.44); Carbon Dioxide 17 mmol/L (22-29); Chloride 106 mmol/L (98-107); Estimated GFR 104; Glucose 196 mg/dL (70-105); Potassium 4.8 mmol/L (3.5-5.1); Sodium 128 mmol/L (136-145)
[2022-12-15] MEDS: Insulin Glargine 30 UNITS/0.3 ML VIAL SC SCH (08:29)
[2022-12-15] MEDS: Pantoprazole 40 MG VIAL IVP SCH (08:29)
[2022-12-15] MEDS: HumaLOG 300 UNITS/3 ML VIAL SC PRN ×2 (12:49→17:37)
[2022-12-16 07:41] LABS: #Eosinphils 0.1 thou/uL (0.0-0.7); #Lymphocytes 1.2 thou/uL (1.20-3.40); #Monocytes 0.5 thou/uL (0.11-0.59); %Eosinophils 1.9 % (0.0-10.0); %Lymphocytes 15.1 % (21.0-51.0); %Monocytes 6.5 % (0.0-10.0); %Neutrophils 76.4 % (42.0-75.0); Hemoglobin 16.1 g/dL (14.0-18.0); Mean Corpuscular HGB CONC 32.8 g/dL (32.0-36.0); Mean Corpuscular Volume 91.6 fl (78.0-98.0); Mean Platelet Volume 9.5 fL (7.4-10.4); Platelet Count 111 10x3/uL (130-400); RBC Distribution Width 13.6 % (11.5-14.5); Red Blood Cell (RBC) Count 5.38 mill/uL (4.70-6.10); White Blood Cell (WBC) Count 7.9 10x3/uL (4.8-10.8)
[2022-12-16 07:57] LABS: Anion Gap 11 mmol/L (10-20); BUN (Urea Nitrogen) 32 mg/dL (8.4-25.7); Calc. Creatinine Clearance 147 mL/min (70-130); Carbon Dioxide 23 mmol/L (22-29); Chloride 104 mmol/L (98-107); Estimated GFR 101; Glucose 152 mg/dL (70-105); Magnesium 2.1 mg/dL (1.6-2.6); Potassium 4.5 mmol/L (3.5-5.1); Sodium 133 mmol/L (136-145)
[2022-12-16] MEDS: Pantoprazole 40 MG VIAL IVP SCH (08:29)
[2022-12-16] MEDS: Insulin Glargine 30 UNITS/0.3 ML VIAL SC SCH (08:30)
[2022-12-16] MEDS: HumaLOG 300 UNITS/3 ML VIAL SC PRN ×2 (12:26→17:29)
[2022-12-17] MEDS: HumaLOG 300 UNITS/3 ML VIAL SC PRN ×2 (06:09→13:27)
[2022-12-17 07:03] LABS: #Eosinphils 0.1 thou/uL (0.0-0.7); #Lymphocytes 1.1 thou/uL (1.20-3.40); #Monocytes 0.6 thou/uL (0.11-0.59); #Neutrophils 5.9 thou/uL (1.40-6.50); %Basophils 0.2 % (0.0-1.0); %Eosinophils 1.5 % (0.0-10.0); %Lymphocytes 14.1 % (21.0-51.0); %Monocytes 7.3 % (0.0-10.0); %Neutrophils 76.9 % (42.0-75.0); Hemoglobin 16.1 g/dL (14.0-18.0); Mean Corpuscular HGB CONC 31.3 g/dL (32.0-36.0); Mean Corpuscular Volume 92.7 fl (78.0-98.0); Mean Platelet Volume 9.7 fL (7.4-10.4); Platelet Count 119 10x3/uL (130-400); RBC Distribution Width 13.6 % (11.5-14.5); Red Blood Cell (RBC) Count 5.54 mill/uL (4.70-6.10); White Blood Cell (WBC) Count 7.7 10x3/uL (4.8-10.8)
[2022-12-17 07:20] LABS: Anion Gap 11 mmol/L (10-20); BUN (Urea Nitrogen) 29 mg/dL (8.4-25.7); Calc. Creatinine Clearance 154 mL/min (70-130); Carbon Dioxide 24 mmol/L (22-29); Chloride 105 mmol/L (98-107); Estimated GFR 102; Glucose 176 mg/dL (70-105); Potassium 4.6 mmol/L (3.5-5.1); Sodium 135 mmol/L (136-145)
[2022-12-17] MEDS: Pantoprazole 40 MG VIAL IVP SCH (08:44)
[2022-12-17] MEDS: Insulin Glargine 30 UNITS/0.3 ML VIAL SC SCH (08:44)
[2022-12-17] MEDS: Scopolamine 1.5 mg/72 hour Patch TD SCH (13:27)
[2022-12-17] MEDS ORDERED: GUAIFENESIN SF SOLN 200 MG/10 ML UDCUP PO PRN (20:38)
[2022-12-17] MEDS ORDERED: Phenol 118 ML BOT PO PRN (23:57)
[2022-12-18 07:09] LABS: #Eosinphils 0.1 thou/uL (0.0-0.7); #Lymphocytes 1.2 thou/uL (1.20-3.40); #Monocytes 0.5 thou/uL (0.11-0.59); #Neutrophils 4.4 thou/uL (1.40-6.50); %Eosinophils 2.2 % (0.0-10.0); %Lymphocytes 18.8 % (21.0-51.0); %Monocytes 7.4 % (0.0-10.0); %Neutrophils 71.5 % (42.0-75.0); Hemoglobin 15.4 g/dL (14.0-18.0); Mean Corpuscular HGB CONC 31.1 g/dL (32.0-36.0); Mean Corpuscular Hemoglobin 29.1 pg (27.0-31.0); Mean Corpuscular Volume 93.4 fl (78.0-98.0); Mean Platelet Volume 11.2 fL (7.4-10.4); Platelet Count 88 10x3/uL (130-400); RBC Distribution Width 13.6 % (11.5-14.5); White Blood Cell (WBC) Count 6.2 10x3/uL (4.8-10.8)
[2022-12-18 07:29] LABS: Anion Gap 13 mmol/L (10-20); BUN (Urea Nitrogen) 25 mg/dL (8.4-25.7); Calc. Creatinine Clearance 141 mL/min (70-130); Carbon Dioxide 23 mmol/L (22-29); Chloride 104 mmol/L (98-107); Estimated GFR 100; Glucose 109 mg/dL (70-105); Potassium 4.7 mmol/L (3.5-5.1); Sodium 135 mmol/L (136-145)
[2022-12-18] MEDS: Pantoprazole 40 MG VIAL IVP SCH (09:46)
[2022-12-18] MEDS: Insulin Glargine 30 UNITS/0.3 ML VIAL SC SCH (09:47)
[2022-12-18] MEDS: HumaLOG 300 UNITS/3 ML VIAL SC PRN (12:31)
[2022-12-18 16:22] VITALS: BP 115/80; TEMP 97.8
== END 2022-12-18 17:49 | disposition home or self-care (01) | DRG 471 ==
LOC: ERS 15:39 → 2SW 19:41 → T4-B 12-05 10:13 → 2SW 12-10 15:57 → SURG A 12-11 21:37
PROVIDERS: ADMIT Hospitalist; ATTEND Hospitalist
PROC: 0RG20A0 Fusion of 2 or more Cervical Vertebral Joints with Interbody Fusion Device, Anterior Approach, Anterior Column, Open Approach (ICD-10-PCS; principal; 2022-12-05)
PROC: 0RB30ZZ Excision of Cervical Vertebral Disc, Open Approach (ICD-10-PCS; 2022-12-05)
PROC: 00NW0ZZ Release Cervical Spinal Cord, Open Approach (ICD-10-PCS; 2022-12-05)
DX: M48.02 Spinal stenosis, cervical region (principal); G82.50 Quadriplegia, unspecified; G95.89 Other specified diseases of spinal cord; G99.2 Myelopathy in diseases classified elsewhere; N17.9 Acute kidney failure, unspecified; I85.10 Secondary esophageal varices without bleeding; E87.1 Hypo-osmolality and hyponatremia; M54.12 Radiculopathy, cervical region; K70.30 Alcoholic cirrhosis of liver without ascites; F17.210 Nicotine dependence, cigarettes, uncomplicated; E11.65 Type 2 diabetes mellitus with hyperglycemia; F10.10 Alcohol abuse, uncomplicated; N18.9 Chronic kidney disease, unspecified; I12.9 Hypertensive chronic kidney disease with stage 1 through stage 4 chronic kidney disease, or unspecified chronic kidney disease; K76.0 Fatty (change of) liver, not elsewhere classified; D69.6 Thrombocytopenia, unspecified; E66.9 Obesity, unspecified; F41.9 Anxiety disorder, unspecified; I45.10 Unspecified right bundle-branch block; R94.31 Abnormal electrocardiogram [ECG] [EKG]; R13.12 Dysphagia, oropharyngeal phase; Z28.21 Immunization not carried out because of patient refusal; Z79.899 Other long term (current) drug therapy; Z79.4 Long term (current) use of insulin; Z98.890 Other specified postprocedural states; Z82.49 Family history of ischemic heart disease and other diseases of the circulatory system; Z83.79 Family history of other diseases of the digestive system; Z68.36 Body mass index [BMI] 36.0-36.9, adult
CPT/HCPCS: 36415; 36416; 70450; 70551; 71045; 72141; 78452; 80048; 80053; 80061; 83036; 83735; 83880; 84100; 84443; 84484; 85025; 85027; 85610; 85730; 86850; 86900; 86901; 93005; 93010; 93017; 93306; 93880; 93970; A9502; C1713; C9113; J1100; J1650; J1815; J2272; J2370; J2405; J2704; J2785; J3010; J3490; J7050